=== PATIENT | female | born 1945 | race Caucasian/White ===

== ENCOUNTER → 2017-09-07 | Outpatient (CLI) | payer MEDICARE ==
[2017-09-07 14:16] LABS: HCT 31.2 % (34.0-46.0); HGB 10.4 gm/dL (11.4-16.0); MCH 31.9 pg (25.0-35.0); MCHC 33.5 g/dL (31.0-37.0); MCV 95.4 fL (80.0-100.0); Platelet Count 241 k/uL (150-450); RBC 3.27 m/uL (3.80-5.40); RDW 13.5 % (11.5-15.5); WBC 7.8 k/uL (3.8-10.6)
[2017-09-07 14:34] LABS: Albumin 3.6 g/dL (3.5-5.0); Calcium 9.5 mg/dL (8.4-10.2); Phosphorus 3.8 mg/dL (2.5-4.5); Potassium 4.3 mmol/L (3.5-5.1)
== END | disposition home or self-care (01) ==
LOC: LABWHC1 13:34
PROVIDERS: ATTEND Internal Medicine Nephrology
DX: N18.4 Chronic kidney disease, stage 4 (severe) (principal)
CPT/HCPCS: 36415; 80069; 85027

== ENCOUNTER 2017-09-11 17:34 | Emergency (ER) | payer MEDICARE ==
--- NOTE | 2017-09-11 19:09 | ED ---
Extremity Problem HPI - General Chief complaint: Extremity Problem,Nontraumatic Stated complaint: Hypertensive & swelling Time Seen by Provider: 09/11/17 18:34 Source: patient, RN notes reviewed Mode of arrival: ambulatory Limitations: no limitations - History of Present Illness Initial comments: This is a 72-year-old female who presents to the emergency department with chief complaint of hypertension and bilateral hand pain and swelling. Patient reports a history of osteoarthritis, gout and stage IV kidney disease. She states that she presented to [facility] prior to arrival to the emergency department and was noted to have a blood pressure of 220/110. It was recommended the patient present to the emergency department. Patient states that this is abnormally high for her. She takes amlodipine daily. She states that she took her medication early this morning at approximately 6 AM. Patient complains of bilateral hand achiness and stiffness that began approximately 10 days ago. She states that symptoms started on the thumb side of her right hand and progressed to her left hand. She states that the pain sometimes radiates up to her forearm. She states that she has also noticed swelling of her bilateral hands and wrists, more so on the left side. She states that swelling decreases throughout the day. Patient also noticed 3 mornings ago when she awoke both feet were swollen and she had difficulty initiating walking. She states that she has taken Tylenol and hydrocodone which does seem to help the pain. Denies fevers or chills, chest pain or shortness breath, abdominal pain, nausea or vomiting, diarrhea or constipation, dysuria or hematuria, numbness or tingling. Denies any injury or trauma. - Related Data Home Medications Medication Instructions Recorded Confirmed Allopurinol [Allopurinol] 100 mg PO DAILY 06/02/15 09/11/17 Glimepiride [Amaryl] 1 mg PO DAILY 06/02/15 09/11/17 HYDROcodone/APAP 5-325MG [[place] 1 tab PO Q6H PRN 06/02/15 09/11/17 5-325] Pioglitazone HCl [Pioglitazone HCl] 30 mg PO DAILY 06/02/15 09/11/17 Sertraline HCl [Sertraline HCl] 50 mg PO DAILY 06/02/15 09/11/17 amLODIPine BESYLATE [Amlodipine 5 mg PO DAILY 06/02/15 09/11/17 Besylate] ALPRAZolam [Xanax] 0.25 mg PO HS PRN 09/11/17 09/11/17 Aspirin [Adult Low Dose Aspirin EC] 81 mg PO DAILY 09/11/17 09/11/17 Calcitriol [Rocaltrol] 0.25 mcg PO Q48H 09/11/17 09/11/17 [place]-3 Fatty Acids/Fish Oil [Fish 1 cap PO DAILY 09/11/17 09/11/17 Oil 1,000 mg Softgel] Sodium Polystyrene Sulfon/Sorb 5 gm PO Q2D 09/11/17 09/11/17 [Kionex 15 gm/60 ml Suspension] Previous Rx's Medication Instructions Recorded Cephalexin [Keflex] 500 mg PO Q12HR #20 cap 09/11/17 Allergies Allergy/AdvReac Type Severity Reaction Status Date / Time ciprofloxacin [From Cipro] Allergy Vomiting Verified 09/11/17 20:00 ciprofloxacin HCl Allergy Vomiting Verified 09/11/17 20:00 [From Cipro] ibuprofen [From Motrin] Allergy Unknown Verified 09/11/17 20:11 metformin [From Glucophage] Allergy Unknown Verified 09/11/17 20:11 Penicillins Allergy Rash/Hives Verified 09/11/17 20:00 Review of Systems ROS Statement: Those systems with pertinent positive or pertinent negative responses have been documented in the HPI. ROS Other: All systems not noted in ROS Statement are negative. Past Medical History Past Medical History: Coronary Artery Disease (CAD), Diabetes Mellitus, Hypertension, Renal Disease Additional Past Medical History / Comment(s): arthritis, gout, stage 4 kidney disease History of Any Multi-Drug Resistant Organisms: None Reported Past Surgical History: Bladder Surgery, Coronary Bypass/CABG, Hysterectomy, Orthopedic Surgery Past Psychological History: Depression Smoking Status: Never smoker Past Alcohol Use History: Occasional Past Drug Use History: None Reported General Exam - General Exam Comments Initial Comments: General: Awake and alert, well-developed; in no apparent distress. HEENT: Head atraumatic, normocephalic. Pupils are equal, round and reactive to light. Extraocular movements intact. Oropharynx moist without erythema or exudate. Neck: Supple. Normal ROM. Cardiovascular: Regular rate and rhythm. No murmurs, rubs or gallops. Chest symmetrical. Respiratory: Lungs clear to auscultation bilaterally. No wheezes, rales or rhonchi. Normal respiratory effort with no use of accessory muscles. Abdomen: Soft, non-tender, non-distended. No rigidity, rebound or guarding. Normal bowel sounds in all 4 quadrants. Musculoskeletal: Normal range of motion of bilateral upper and lower extremities. There is swelling noted to bilateral hands and left wrist, more so on the left side. No erythema, ecchymosis, warmth, or abrasions noted. Component Assembler Supervisor strength 4/5 bilaterally. Skin: [place], warm and dry without rashes or lesions. Neurological: Alert and oriented x3. CN II-XII grossly intact. Speech is fluent and answers are appropriate. No focal neuro deficits. Psychiatric: Normal mood and affect. No overt signs of depression or anxiety noted. Limitations: no limitations Course Vital Signs 09/11/17 09/11/17 18:22 20:40 Temperature 97.6 F 98.3 F Pulse Rate 75 82 Respiratory 18 19 Rate Blood Pressure 184/84 188/93 O2 Sat by Pulse 99 98 Oximetry Medical Decision Making - Medical Decision Making This is a 72-year-old female who presents to the emergency department with chief complaint of bilateral hand pain and swelling. Patient was sent over from [facility] when she was noted to have hypertension. Patient does have stage IV kidney disease, osteoarthritis and gout. CBC was unremarkable. CMP revealed a BUN of 49 and creatinine of 2.4. On review of past labs, this is baseline for patient. CRP was 18.3 and ESR was 55. UA did reveal evidence for infection. This case was discussed with attending physician, Dr. Ochoa who was in contact with [facility]. Patient does not meet any admission criteria. She will be discharged home with Keflex to treat a urinary tract infection. She does request pain medication for her hands. She states that she does have an opiate prescription from her primary care provider in [place], however does not have her prescription with her. Patient will be provided a starter pack for Tylenol#3. Recommended following up with her primary care provider as soon as possible to address her high blood pressure and swelling of the hands further. Patient is in agreement with plan and voices understanding. All questions were answered. - Lab Data Result diagrams: 09/11/17 19:05 09/11/17 19:05 Lab Results 09/11/17 09/11/17 09/11/17 Range/Units 18:50 19:05 19:05 WBC 9.1 (3.8-10.6) k/uL RBC 3.26 L (3.80-5.40) m/uL Hgb 10.5 L (11.4-16.0) gm/dL Hct 31.2 L (34.0-46.0) % MCV 95.5 (80.0-100.0) fL MCH 32.1 (25.0-35.0) pg MCHC 33.6 (31.0-37.0) g/dL RDW 13.6 (11.5-15.5) % Plt Count 243 (150-450) k/uL Neutrophils % 68 % Lymphocytes % 21 % Monocytes % 5 % Eosinophils % 2 % Basophils % 0 % Neutrophils # 6.2 (1.3-7.7) k/uL Lymphocytes # 1.9 (1.0-4.8) k/uL Monocytes # 0.5 (0-1.0) k/uL Eosinophils # 0.2 (0-0.7) k/uL Basophils # 0.0 (0-0.2) k/uL ESR 55 H (0-20) mm/hr Sodium 141 (137-145) mmol/L Potassium 4.7 (3.5-5.1) mmol/L Chloride 105 (98-107) mmol/L Carbon Dioxide 22 (22-30) mmol/L Anion Gap 14 mmol/L BUN 49 H (7-17) mg/dL Creatinine 2.40 H (0.52-1.04) mg/dL Est GFR (CKD-EPI)AfAm 22 (>60 ml/min/1.73 sqM) Est GFR (CKD-EPI)NonAf 19 (>60 ml/min/1.73 sqM) Glucose 90 (74-99) mg/dL Calcium 9.2 (8.4-10.2) mg/dL Total Bilirubin 0.4 (0.2-1.3) mg/dL AST 23 (14-36) U/L ALT 14 (9-52) U/L Alkaline Phosphatase 63 (38-126) U/L C-Reactive Protein 18.3 H (<10.0) mg/L Total Protein 6.4 (6.3-8.2) g/dL Albumin 3.6 (3.5-5.0) g/dL Urine Color Yellow Urine Appearance Cloudy H (Clear) Urine pH 6.5 (5.0-8.0) Ur Specific [place] 1.013 (1.001-1.035) Urine Protein 3+ H (Negative) Urine Glucose (UA) Trace H (Negative) Urine Ketones Negative (Negative) Urine Blood Small H (Negative) Urine Nitrite Negative (Negative) Urine Bilirubin Negative (Negative) Urine Urobilinogen <2.0 (<2.0) mg/dL Ur Leukocyte Esterase Moderate H (Negative) Urine RBC 3 (0-5) /hpf Urine WBC 33 H (0-5) /hpf Ur Squamous Epith Cells 2 (0-4) /hpf Urine Mucus Rare H (None) /hpf Disposition Clinical Impression: UTI (urinary tract infection), Bilateral hand pain Disposition: HOME SELF-CARE Condition: Good Instructions: Arthralgia (ED), Swollen Joint (ED), Urinary Tract Infection in Women (ED), Acetaminophen/Codeine (By mouth) Additional Instructions: Please take medications as prescribed. Please follow up with primary care provider within 1-2 days. Return to emergency department if symptoms should worsen or any concerns arise. Prescriptions: Cephalexin [Keflex] 500 mg PO Q12HR #20 cap Is patient prescribed a controlled substance at discharge?: Yes Referrals: Nonstaff,Physician [Primary Care Provider] - 1-2 days Time of Disposition: 21:07
[2017-09-11 19:10] LABS: Appearance,Urine Cloudy (Clear); Bilirubin,Urine Negative (Negative); Blood,Urine Small (Negative); Color,Urine Yellow; Glucose,Urine (UA) Trace (Negative); Ketones,Urine Negative (Negative); Leukocyte Esterase,Urine Moderate (Negative); Mucus,Urine Rare /hpf; Nitrite,Urine Negative (Negative); PH, Urine 6.5 (5.0-8.0); Protein,Urine 3+ (Negative); RBC,Urine 3 /hpf (0-5); Specific Gravity,Urine 1.013 (1.001-1.035); Squamous Epithelial Cell,Urine 2 /hpf (0-4); Urobilinogen,Urine <2.0 mg/dL (<2.0); WBC,Urine 33 /hpf (0-5)
[2017-09-11 19:21] LABS: Basophils % (A) 0 %; Eosinophils # (A) 0.2 k/uL (0-0.7); Eosinophils % (A) 2 %; HCT 31.2 % (34.0-46.0); HGB 10.5 gm/dL (11.4-16.0); Lymphocytes # (A) 1.9 k/uL (1.0-4.8); Lymphocytes % (A) 21 %; MCH 32.1 pg (25.0-35.0); MCHC 33.6 g/dL (31.0-37.0); MCV 95.5 fL (80.0-100.0); Mean Platelet Volume 7.1; Monocytes # (A) 0.5 k/uL (0-1.0); Monocytes % (A) 5 %; Neutrophils # (A) 6.2 k/uL (1.3-7.7); Neutrophils % (A) 68 %; Platelet Count 243 k/uL (150-450); RBC 3.26 m/uL (3.80-5.40); RDW 13.6 % (11.5-15.5); WBC 9.1 k/uL (3.8-10.6)
[2017-09-11 19:32] LABS: Albumin 3.6 g/dL (3.5-5.0); C Reactive Protein 18.3 mg/L (<10.0); Calcium 9.2 mg/dL (8.4-10.2); Potassium 4.7 mmol/L (3.5-5.1); Total Bilirubin 0.4 mg/dL (0.2-1.3); Total Protein 6.4 g/dL (6.3-8.2)
[2017-09-11 20:08] LABS: Erythrocyte Sedimentation Rate 55 mm/hr (0-20)
[2017-09-11] MEDS ORDERED: cefTRIAXone IN SWFI 1,000 MG/10 ML SYRINGE IVP STA (20:37)
[2017-09-11 20:41] VITALS: BP 188/93; PULSE 82; RESP 19; TEMP 98.3
[2017-09-11] MEDS ORDERED: ACET/COD 300 MG/30 MG STARTER PACK 6 TAB BTL PO STA (21:07)
== END 2017-09-11 21:32 | disposition home or self-care (01) ==
LOC: EC 17:34
DX: N39.0 Urinary tract infection, site not specified (principal); M79.641 Pain in right hand; M79.642 Pain in left hand; M79.89 Other specified soft tissue disorders; I12.9 Hypertensive chronic kidney disease with stage 1 through stage 4 chronic kidney disease, or unspecified chronic kidney disease; E11.22 Type 2 diabetes mellitus with diabetic chronic kidney disease; N18.4 Chronic kidney disease, stage 4 (severe); M19.90 Unspecified osteoarthritis, unspecified site; M10.9 Gout, unspecified; F32.9 Major depressive disorder, single episode, unspecified; I25.10 Atherosclerotic heart disease of native coronary artery without angina pectoris; Z79.82 Long term (current) use of aspirin; Z79.84 Long term (current) use of oral hypoglycemic drugs; Z79.899 Other long term (current) drug therapy; Z88.0 Allergy status to penicillin; Z88.8 Allergy status to other drugs, medicaments and biological substances; Z88.1 Allergy status to other antibiotic agents; Z88.6 Allergy status to analgesic agent; Z98.890 Other specified postprocedural states; Z90.710 Acquired absence of both cervix and uterus
CPT/HCPCS: 36415; 80053; 85652; 85025; 86140; 81001; 87086; 99283; 96374; J0696

== ENCOUNTER → 2019-02-06 | Outpatient (CLI) | payer MEDICARE ==
[2019-02-06 12:00] LABS: HCT 29.8 % (34.0-46.0); HGB 9.7 gm/dL (11.4-16.0); MCH 32.6 pg (25.0-35.0); MCHC 32.7 g/dL (31.0-37.0); MCV 99.8 fL (80.0-100.0); Platelet Count 187 k/uL (150-450); RBC 2.98 m/uL (3.80-5.40); RDW 13.9 % (11.5-15.5); WBC 8.7 k/uL (3.8-10.6)
[2019-02-06 16:53] LABS: African American GFR (CKD) 11.9 (60.0-200.0); Albumin 4.1 g/dL (3.80-4.90); Anion Gap 10.6 mmol/L (4.00-12.00); BUN/Creat Ratio 13.25 Ratio (12.00-20.00); Calcium 8.8 mg/dL (8.7-10.3); Carbon Dioxide 23.4 mmol/L (21.6-31.8); Magnesium 1.7 mg/dL (1.5-2.4); Phosphorus 4.6 mg/dL (2.4-5.1); Potassium 4.4 mmol/L (3.5-5.5)
== END | disposition home or self-care (01) ==
LOC: LABWHC1 11:25
PROVIDERS: ATTEND Internal Medicine Nephrology
DX: N18.5 Chronic kidney disease, stage 5 (principal); D63.1 Anemia in chronic kidney disease
CPT/HCPCS: 36415; 80069; 83735; 85027

== ENCOUNTER → 2019-11-12 | Outpatient (CLI) | payer MEDICARE ==
[2019-11-12 16:46] LABS: African American GFR (CKD) 6.9 (60.0-200.0); Anion Gap 11.9 mmol/L (4.00-12.00); Calcium 8.8 mg/dL (8.7-10.3); Carbon Dioxide 21.1 mmol/L (21.6-31.8); Non-African American GFR(CKD) 5.9 (60.0-200.0); Potassium 5.6 mmol/L (3.5-5.5)
== END | disposition home or self-care (01) ==
LOC: LABWHC1 08:26
PROVIDERS: ATTEND Internal Medicine Nephrology
DX: N18.6 End stage renal disease (principal)
CPT/HCPCS: 36415; 80048

== ENCOUNTER → 2020-05-14 | Outpatient (CLI) | payer MEDICARE | END | disposition home or self-care (01) | LOC: LABWHC1 13:46 | PROVIDERS: ATTEND Internal Medicine Nephrology | DX: E78.5 Hyperlipidemia, unspecified (principal) | CPT/HCPCS: 36415; 84132 ==

== ENCOUNTER 2023-07-22 09:24 | Emergency (ER) | payer MEDICARE ==
[2023-07-22 09:35] VITALS: RESP 18; TEMP 97.6
--- NOTE | 2023-07-22 10:53 | XR ---
EXAMINATION TYPE: XR KUB DATE OF EXAM: 07/22/2023 10:16 AM CLINICAL INDICATION:Female, 78 years old with history of fecal impaction; [facility] COMPARISON: None. TECHNIQUE: One radiographic view of the abdomen was obtained. FINDINGS: Moderate amount of stool throughout the colon. The bowel gas pattern is nonspecific without dilated loops of small or large bowel. There is no evidence for organomegaly or pneumoperitoneum. T he osseous structures are intact. No abnormal calcifications are present. Fecal material and gas are demonstrated throughout the colon and rectum. IMPRESSION: Nonspecific bowel gas pattern without radiographic evidence for acute process.
--- NOTE | 2023-07-22 11:35 | ED ---
Abdominal Pain HPI - General Chief Complaint: Abdominal Pain Stated Complaint: [place] Pain Time Seen by Provider: 07/22/23 09:32 Source: patient Mode of arrival: ambulatory Limitations: no limitations - History of Present Illness Initial Comments: 78-year-old female presents emergency department with constipation. States that she has not had a bowel movement in a couple of days. She normally goes daily. Patient is on dialysis and believes that it is the dialysis that made her constipated. She missed her dialysis this morning and is scheduled to follow-up on Monday. States that she will occasionally miss a session and this is okay with her care team as she does not quickly become fluid overloaded or uremic. Patient states that she feels like it is in her rectal vault. She has a lot of pressure down here. Has some generalized abdominal discomfort. She took a suppository this morning and drink some prune juice. Had a small bowel mo vement. She denies any black or bloody stools. No changes with her urination. No back pain. No other alleviating, precipitating or modifying factors - Related Data Home Medications Medication Instructions Recorded Confirmed Glimepiride [Amaryl] 1 mg PO DAILY 06/02/15 09/11/17 HYDROcodone/APAP 5-325MG [[place] 1 tab PO Q6H PRN 06/02/15 09/11/17 5-325] Pioglitazone HCl 30 mg PO DAILY 06/02/15 09/11/17 Sertraline HCl 50 mg PO DAILY 06/02/15 09/11/17 allopurinoL [Allopurinol] 100 mg PO DAILY 06/02/15 09/11/17 amLODIPine BESYLATE [Amlodipine 5 mg PO DAILY 06/02/15 09/11/17 Besylate] ALPRAZolam [Xanax] 0.25 mg PO HS PRN 09/11/17 09/11/17 Aspirin [Adult Low Dose Aspirin EC] 81 mg PO DAILY 09/11/17 09/11/17 [place]-3 Fatty Acids/Fish Oil [Fish 1 cap PO DAILY 09/11/17 09/11/17 Oil 1,000 mg Softgel] Sodium Polystyrene Sulfon/Sorb 5 gm PO Q2D 09/11/17 09/11/17 [Kionex 15 gm/60 ml Suspension] calcitrioL [Rocaltrol] 0.25 mcg PO Q48H 09/11/17 09/11/17 Previous Rx's Medication Instructions Recorded Cephalexin [Keflex] 500 mg PO Q12HR #20 cap 09/11/17 Lactulose 20 gm PO DAILY PRN #240 ml 07/22/23 Allergies Allergy/AdvReac Type Severity Reaction Status Date / Time ciprofloxacin [From Cipro] Allergy Vomiting Verified 07/22/23 09:31 ciprofloxacin HCl Allergy Vomiting Verified 07/22/23 09:31 [From Cipro] ibuprofen [From Motrin] Allergy Unknown Verified 07/22/23 09:31 metformin [From Glucophage] Allergy Unknown Verified 07/22/23 09:31 Penicillins Allergy Rash/Hives Verified 07/22/23 09:31 Review of Systems ROS Statement: Those systems with pertinent positive or pertinent negative responses have been documented in the HPI. ROS Other: All systems not noted in ROS Statement are negative. Past Medical History Past Medical History: Coronary Artery Disease (CAD), Diabetes Mellitus, Hypertension, Renal Disease Additional Past Medical History / Comment(s): arthritis, gout, stage 4 kidney disease, dialysis History of Any Multi-Drug Resistant Organisms: None Reported Past Surgical History: Bladder Surgery, Coronary Bypass/CABG, Hysterectomy, Orthopedic Surgery Past Psychological History: Depression Smoking Status: Never smoker Past Alcohol Use History: Occasional Past Drug Use History: None Reported General Exam Limitations: no limitations General appearance: alert, in no apparent distress Head exam: Present: atraumatic, normocephalic, normal inspection Eye exam: Present: normal appearance, PERRL, EOMI. Absent: scleral icterus, conjunctival injection, periorbital swelling ENT exam: Present: normal exam, mucous membranes moist Neck exam: Present: normal inspection. Absent: tenderness, meningismus, lymphadenopathy Respiratory exam: Present: normal lung sounds bilaterally. Absent: respiratory distress, wheezes, rales, rhonchi, stridor Cardiovascular Exam: Present: regular rate, normal rhythm, normal heart sounds. Absent: systolic murmur, diastolic murmur, rubs, gallop, clicks GI/Abdominal exam: Present: soft, normal bowel sounds. Absent: distended, tenderness, guarding, rebound, rigid Rectal exam: Present: normal rectal tone. Absent: fecal impaction Extremities exam: Present: normal inspection, full ROM, normal capillary refill. Absent: tenderness, pedal edema, joint swelling, calf tenderness Back exam: Present: normal inspection Neurological exam: Present: alert, oriented X3, CN II-XII intact Psychiatric exam: Present: normal affect, normal mood Skin exam: Present: warm, dry, intact, normal color. Absent: rash Course Vital Signs 07/22/23 07/22/23 09:26 11:46 Temperature 97.6 F Pulse Rate 66 73 Respiratory 18 18 Rate Blood Pressure 194/70 177/83 O2 Sat by Pulse 99 97 Oximetry Medical Decision Making - Medical Decision Making Was pt. sent in by a medical professional or institution (, SUMEET, ROTARY ADJUSTER, urgent care, hospital, or group home...) When possible be specific @ -No Did you speak to anyone other than the patient for history (EMS, parent, family, police, friend...)? What history was obtained from this source @ -No Did you review nursing and triage notes (agree or disagree)? Why? @ -I reviewed and agree with nursing and triage notes Were old charts reviewed (outside hosp., previous admission, EMS record, old EKG, old radiological studies, urgent care reports/EKG's, group home records)? Report findings @ -No old charts were reviewed Differential Diagnosis (chest pain, altered mental status, abdominal pain women, abdominal pain men, vaginal bleeding, weakness, fever, dyspnea, syncope, headache, dizziness, GI bleed, back pain, seizure, CVA, palpatations, mental health, musculoskeletal)? @ -Constipation, rectal impaction EKG interpreted by me (3pts min.). @ -None done X-rays interpreted by me (1pt min.). @ -Yes and demonstrates some stool burden CT interpreted by me (1pt min.). @ -None done U/S interpreted by me (1pt. min.). @ -None done What testing was considered but not performed or refused? (CT, X-rays, U/S, labs)? Why? @ -None What meds were considered but not given or refused? Why? @ -None Did you discuss the management of the patient with other professionals (professionals i.e. SUMEET Silva, ROTARY ADJUSTER, lab, RT, psych nurse, social service manager, meat passer, teacher, earth science technical officer, hospice case manager)? Give summary @ -No Was smoking cessation discussed for >3mins.? @ -No Was critical care preformed (if so, how long)? @ -No Were there social determinants of health that impacted care today? How? (Homelessness, low income, unemployed, alcoholism, drug addiction, transpor tation, low edu. Level, literacy, decrease access to med. care, custodial, rehab)? @ -No Was there de-escalation of care discussed even if they declined (Discuss DNR or withdrawal of care, Hospice)? DNR status @ -No What co-morbidities impacted this encounter? (DM, HTN, Smoking, COPD, CAD, Cancer, CVA, ARF, Chemo, Hep., AIDS, mental health diagnosis, sleep apnea, morbid obesity)? @ -End-stage renal disease on hemodialysis Was patient admitted / discharged? Hospital course, mention meds given and route, prescriptions, significant lab abnormalities, going to OR and other pertinent info. @ -Discharged. Upon arrival patient placed on 31. A thorough history and physical exam was performed. KUB is performed. Enema is administered. I did perform rectal disimpaction however patient does not have much stool that I am able to reach. Patient will be discharged home and instructed to take MiraLAX daily. May additionally take lactulose which I prescribed to help her have bowel movements. Follow-up with her doctor return for any new or worsening symptoms Undiagnosed new problem with uncertain prognosis? @ -No Drug Therapy requiring intensive monitoring for toxicity (Heparin, Nitro, Insul in, Cardizem)? @ -No Were any procedures done? @ -Rectal disimpaction Diagnosis/symptom? @ -Acute constipation Acute, or Chronic, or Acute on Chronic? @ -Acute Uncomplicated (without systemic symptoms) or Complicated (systemic symptoms)? @ -Complicated Side effects of treatment? @ -No Exacerbation, Progression, or Severe Exacerbation? @ -No Poses a threat to life or bodily function? How? (Chest pain, [place], [place], pneumonia, PE, COPD, DKA, ARF, appy, cholecystitis, CVA, Diverticulitis, Homicidal, Suicidal, threat to staff... and all critical care pts) @ -No Disposition Clinical Impression: Constipation Disposition: HOME SELF-CARE Condition: Stable Instructions (If sedation given, give patient instructions): Constipation (ED) Additional Instructions: You can use your MiraLAX daily. Take the lactulose on days that you are significantly constipated. Follow-up with your doctor and return for any new or worsening symptoms Prescriptions: Lactulose 20 gm PO DAILY PRN #240 ml PRN Reason: Constipation Is patient prescribed a controlled substance at d/c from ED?: No Referrals: Nonstaff,Physician [Primary Care Provider] - 1-2 days Time of Disposition: 11:34
[2023-07-22 12:04] VITALS: BP 177/83; PULSE 73
== END 2023-07-22 11:49 | disposition home or self-care (01) ==
LOC: EC 09:24
DX: K59.00 Constipation, unspecified (principal); E11.9 Type 2 diabetes mellitus without complications; I10 Essential (primary) hypertension; I12.9 Hypertensive chronic kidney disease with stage 1 through stage 4 chronic kidney disease, or unspecified chronic kidney disease; E11.22 Type 2 diabetes mellitus with diabetic chronic kidney disease; I25.10 Atherosclerotic heart disease of native coronary artery without angina pectoris; N18.4 Chronic kidney disease, stage 4 (severe); F32.A Depression, unspecified; Z79.84 Long term (current) use of oral hypoglycemic drugs; Z79.899 Other long term (current) drug therapy; Z88.6 Allergy status to analgesic agent; Z88.0 Allergy status to penicillin; Z88.8 Allergy status to other drugs, medicaments and biological substances; Z88.1 Allergy status to other antibiotic agents
CPT/HCPCS: 74018; 99284

== ENCOUNTER 2024-02-28 09:25 | Observation (INO) | payer MEDICARE ==
--- NOTE | 2024-02-28 10:13 | ED ---
General Adult HPI - General Chief complaint: Recheck/Abnormal Lab/Rx Stated complaint: high blood pressure Time Seen by Provider: 02/28/24 09:40 Source: patient, RN notes reviewed, old records reviewed Mode of arrival: ambulatory Limitations: no limitations - History of Present Illness Initial comments: This is an 79-year-old female who presents to the emergency department because she went to dialysis this morning and her blood pressure was too high to be dialyzed so they sent to the emergency department. Patient also states she drove to [facility] mistakenly to get dialyzed and she was supposed to go to [facility] and she went down there but does not remember now ever going to [facility]. According to the staff at the dialysis center she appeared a little bit confused and the daughter who is with her at this time states she was seemed a little confused as well when she first saw her and now she is back to her baseline. Patient still does not remember going to the wrong dialysis center. Patient denies a headache patient denies numbness weakness. Patient Nuys chest pain difficulty breathing or shortness of breath. Patient has any fever chills or cough or patient has abdominal pain patient Nuys nausea vomiting or diarrhea. - Related Data Home Medications Medication Instructions Recorded Confirmed Glimepiride [Amaryl] 1 mg PO DAILY 06/02/15 09/11/17 HYDROcodone/APAP 5-325MG [[place] 1 tab PO Q6H PRN 06/02/15 09/11/17 5-325] Pioglitazone HCl 30 mg PO DAILY 06/02/15 09/11/17 Sertraline HCl 50 mg PO DAILY 06/02/15 09/11/17 allopurinoL [Allopurinol] 100 mg PO DAILY 06/02/15 09/11/17 amLODIPine BESYLATE [Amlodipine 5 mg PO DAILY 06/02/15 09/11/17 Besylate] ALPRAZolam [Xanax] 0.25 mg PO HS PRN 09/11/17 09/11/17 Aspirin [Adult Low Dose Aspirin EC] 81 mg PO DAILY 09/11/17 09/11/17 [place]-3 Fatty Acids/Fish Oil [Fish 1 cap PO DAILY 09/11/17 09/11/17 Oil 1,000 mg Softgel] Sodium Polystyrene Sulfon/Sorb 5 gm PO Q2D 09/11/17 09/11/17 [Kionex 15 gm/60 ml Suspension] calcitrioL [Rocaltrol] 0.25 mcg PO Q48H 09/11/17 09/11/17 Previous Rx's Medication Instructions Recorded Cephalexin [Keflex] 500 mg PO Q12HR #20 cap 09/11/17 Lactulose 20 gm PO DAILY PRN #240 ml 07/22/23 Allergies Allergy/AdvReac Type Severity Reaction Status Date / Time ciprofloxacin [From Cipro] Allergy Vomiting Verified 02/28/24 12:02 ciprofloxacin HCl Allergy Vomiting Verified 02/28/24 12:02 [From Cipro] ibuprofen [From Motrin] Allergy Unknown Verified 02/28/24 12:02 metformin [From Glucophage] Allergy Unknown Verified 02/28/24 12:02 Penicillins Allergy Rash/Hives Verified 02/28/24 12:02 Review of Systems ROS Statement: Those systems with pertinent positive or pertinent negative responses have been documented in the HPI. ROS Other: All systems not noted in ROS Statement are negative. Past Medical History Past Medical History: Coronary Artery Disease (CAD), Diabetes Mellitus, Hypertension, Renal Disease Additional Past Medical History / Comment(s): arthritis, gout, stage 4 kidney disease, dialysis History of Any Multi-Drug Resistant Organisms: None Reported Past Surgical History: Bladder Surgery, Coronary Bypass/CABG, Hysterectomy, Orthopedic Surgery Past Psychological History: Depression Smoking Status: Never smoker Past Alcohol Use History: Occasional Past Drug Use History: None Reported General Exam - General Exam Comments Initial Comments: GENERAL: Patient is well-developed and well-nourished. Patient is nontoxic and well- hydrated and is in no acute distress. ENT: Neck is soft and supple. No significant lymphadenopathy is noted. Oropharynx is clear. Moist mucous membranes. Neck has full range of motion without eliciting any pain. EYES: The sclera were anicteric and conjunctiva were pink and moist. Extraocular movements were intact and pupils were equal round and reactive to light. Eyelids were unremarkable. PULMONARY: Unlabored respirations. Good breath sounds bilaterally. No audible rales rhonchi or wheezing was noted. CARDIOVASCULAR: There is a regular rate and rhythm without any murmurs gallops or rubs. ABDOMEN: Soft and nontender with normal bowel sounds. SKIN: Skin is clear with no lesions or rashes and otherwise unremarkable. NEUROLOGIC: Patient is alert and oriented x3. Cranial nerves II through XII are grossly intact. Motor and sensory are also intact. Normal speech, volume and content. Symmetrical smile. MUSCULOSKELETAL: Normal extremities with adequate strength and full range of motion. No lower extremity swelling or edema. No calf tenderness. LYMPHATICS: No significant lymphadenopathy is noted PSYCHIATRIC: Normal psychiatric evaluation. Limitations: no limitations Course Vital Signs 02/28/24 02/28/24 02/28/24 09:26 11:22 11:40 Temperature 97.4 F L Pulse Rate 65 61 62 Respiratory 20 18 Rate Blood Pressure 194/83 183/75 187/67 O2 Sat by Pulse 100 100 100 Oximetry Medical Decision Making - Medical Decision Making EKG is interpreted by myself but EKG shows a sinus rhythm at 68 bpm GA interval is 187 QRS 106 QT interval is 418 QTc is 436. Patient EKG shows no ST segment ovation or depression. Was pt. sent in by a medical professional or institution (, SUMEET, SKULL GRINDER, urgent care, hospital, or prison...) When possible be specific @ -Patient was sent in by the dialysis center Did you speak to anyone other than the patient for history (EMS, parent, family, police, friend...)? What history was obtained from this source @ -No Did you review nursing and triage notes (agree or disagree)? Why? @ -I reviewed and agree with nursing and triage notes Were old charts reviewed (outside hosp., previous admission, EMS record, old EKG, old radiological studies, urgent care reports/EKG's, prison records)? Report findings @ -No old charts were reviewed Differential Diagnosis? @ -Differential Altered Mental Status: Hypoglycemia, DKA, hypercapnia, ETOH, overdose, CO poisoning, trauma, myxedema coma, HTN encephalopathy, infection, encephalitis, psychosis, intercranial hemorrhage, hepatic encephalopathy, meningitis, CVA, this is not meant to be an all-inclusive list EKG interpreted by me (3pts min.). @ -As above X-rays interpreted by me (1pt min.). @ -Chest x-ray shows no acute abnormality CT interpreted by me (1pt min.). @ -CT of the brain shows no acute normality U/S interpreted by me (1pt. min.). @ -None done What testing was considered but not performed or refused? (CT, X-rays, U/S, labs)? Why? @ -None What meds were considered but not given or refused? Why? @ -None Did you discuss the management of the patient with other professionals (professionals i.e. , PA, SKULL GRINDER, lab, RT, psych nurse, social economist, barrel cooper, teacher, licensed loan officer, manager rn case)? Give summary @ -I spoke with Dr. Alvarado he agreed to admit the patient admit the patient I wrote admitting orders Was smoking cessation discussed for >3mins.? @ -No Was critical care preformed (if so, how long)? @ -No Were there social determinants of health that impacted care today? How? (Homelessness, low income, unemployed, alcoholism, drug addiction, transportation, low edu. Level, literacy, decrease access to med. care, fci, rehab)? @ -No Was there de-escalation of care discussed even if they declined (Discuss DNR or withdrawal of care, Hospice)? DNR status @ -No What co-morbidities impacted this encounter? (DM, HTN, Smoking, COPD, CAD, Cancer, CVA, ARF, Chemo, Hep., AIDS, mental health diagnosis, sleep apnea, morbid obesity)? @ -None Was patient admitted / discharged? Hospital course, mention meds given and route, prescriptions, significant lab abnormalities, going to OR and other pertinent info. @ -Patient's sodium was low potassium was mildly elevated I spoke with Dr. Alvarado we will be admitting the patient I will consult nephrology for dialysis Undiagnosed new problem with uncertain prognosis? @ -No Drug Therapy requiring intensive monitoring for toxicity (Heparin, Nitro, Insulin, Cardizem)? @ -No Were any procedures done? @ -No Diagnosis/symptom? @ -Hyponatremia Acute, or Chronic, or Acute on Chronic? @ -Acute Uncomplicated (without systemic symptoms) or Complicated (systemic symptoms)? @ -Complicated Side effects of treatment? @ -No Exacerbation, Progression, or Severe Exacerbation? @ -No Poses a threat to life or bodily function? How? (Chest pain, [place], [place], pneumonia, PE, COPD, DKA, ARF, appy, cholecystitis, CVA, Diverticulitis, Homicidal, Suicidal, threat to staff... and all critical care pts) @ -Yes this could be lead to further electrolyte abnormalities and dysrhythmias and Diagnosis/symptom? @ -Hyperkalemia Acute, or Chronic, or Acute on Chronic? @ -Default Uncomplicated (without systemic symptoms) or Complicated (systemic symptoms)? @ -Complicated Side effects of treatment? @ -None Exacerbation, Progression, or Severe Exacerbation] @ -No Poses a threat to life or bodily function? @ -Yes this could lead to an arrhythmia and possible Diagnosis/symptom? @ -Altered mental status Acute, or Chronic, or Acute on Chronic? @ -Acute Uncomplicated (without systemic symptoms) or Complicated (systemic symptoms)? @ -Complicated Side effects of treatment? @ -None Exacerbation, Progression, or Severe Exacerbation] @ -No Poses a threat to life or bodily function? @ -No - Lab Data Result diagrams: 02/28/24 10:46 02/28/24 10:46 Lab Results 02/28/24 02/28/24 02/28/24 Range/Units 10:46 10:46 10:46 WBC 10.7 H (3.8-10.6) k/uL RBC 3.61 L (3.80-5.40) m/uL Hgb 12.1 (11.4-16.0) gm/dL Hct 36.9 (34.0-46.0) % MCV 102.4 H (80.0-100.0) fL MCH 33.7 (25.0-35.0) pg MCHC 32.9 (31.0-37.0) g/dL RDW 15.3 (11.5-15.5) % Plt Count 267 (150-450) k/uL MPV 7.2 Neutrophils % 78 % Lymphocytes % 14 % Monocytes % 4 % Eosinophils % 1 % Basophils % 1 % Neutrophils # 8.4 H (1.3-7.7) k/uL Lymphocytes # 1.5 (1.0-4.8) k/uL Monocytes # 0.5 (0-1.0) k/uL Eosinophils # 0.1 (0-0.7) k/uL Basophils # 0.1 (0-0.2) k/uL Macrocytosis Slight PT 10.2 (10.0-12.5) sec INR 0.9 (<1.2) APTT 22.8 (22.0-30.0) sec Sodium 123 L (137-145) mmol/L Potassium 6.0 H (3.5-5.1) mmol/L Chloride 87 L (98-107) mmol/L Carbon Dioxide 21 L (22-30) mmol/L Anion Gap 15 mmol/L BUN 43 H (7-17) mg/dL Creatinine 8.25 H* (0.52-1.04) mg/dL Est GFR (CKD-EPI)AfAm 5 (>60 ml/min/1.73 sqM) Est GFR (CKD-EPI)NonAf 4 (>60 ml/min/1.73 sqM) Glucose 137 H (74-99) mg/dL Calcium 9.7 (8.4-10.2) mg/dL Total Bilirubin 0.9 (0.2-1.3) mg/dL AST 41 H (14-36) U/L ALT 26 (4-34) U/L Alkaline Phosphatase 120 (38-126) U/L Troponin I (0.000-0.034) ng/mL Total Protein 7.8 (6.3-8.2) g/dL Albumin 4.8 (3.5-5.0) g/dL 02/28/24 Range/Units 10:46 WBC (3.8-10.6) k/uL RBC (3.80-5.40) m/uL Hgb (11.4-16.0) gm/dL Hct (34.0-46.0) % MCV (80.0-100.0) fL MCH (25.0-35.0) pg MCHC (31.0-37.0) g/dL RDW (11.5-15.5) % Plt Count (150-450) k/uL MPV Neutrophils % % Lymphocytes % % Monocytes % % Eosinophils % % Basophils % % Neutrophils # (1.3-7.7) k/uL Lymphocytes # (1.0-4.8) k/uL Monocytes # (0-1.0) k/uL Eosinophils # (0-0.7) k/uL Basophils # (0-0.2) k/uL Macrocytosis PT (10.0-12.5) sec INR (<1.2) APTT (22.0-30.0) sec Sodium (137-145) mmol/L Potassium (3.5-5.1) mmol/L Chloride (98-107) mmol/L Carbon Dioxide (22-30) mmol/L Anion Gap mmol/L BUN (7-17) mg/dL Creatinine (0.52-1.04) mg/dL Est GFR (CKD-EPI)AfAm (>60 ml/min/1.73 sqM) Est GFR (CKD-EPI)NonAf (>60 ml/min/1.73 sqM) Glucose (74-99) mg/dL Calcium (8.4-10.2) mg/dL Total Bilirubin (0.2-1.3) mg/dL AST (14-36) U/L ALT (4-34) U/L Alkaline Phosphatase (38-126) U/L Troponin I 0.024 (0.000-0.034) ng/mL Total Protein (6.3-8.2) g/dL Albumin (3.5-5.0) g/dL Disposition Clinical Impression: Altered mental status, Hyponatremia, Hyperkalemia Disposition: ADMITTED IP TO THIS [facility] Referrals: Nonstaff,Physician [Primary Care Provider] - 1-2 days Time of Disposition: 12:22
--- NOTE | 2024-02-28 10:49 | CT ---
EXAMINATION TYPE: CT brain wo con CT DLP: 1080.8 mGycm, Automated exposure control for dose reduction was used. DATE OF EXAM: 02/28/2024 10:42 AM COMPARISON: None. CLINICAL INDICATION:Female, 79 years old with history of Altered mental status, DIZZY TECHNIQUE: Brain: Multiple axial CT images of the brain were obtained without IV contrast. . Coronal and sagitta l reformats reviewed. FINDINGS: Brain: Extra-axial spaces: No abnormal extra-axial fluid collections. Ventricular system: Within normal limits Cerebral parenchyma: Cerebral atrophy. No acute intraparenchymal hemorrhage or mass effect. Few punct ate calcifications identified within the cerebral parenchyma. The lentz-white junction is well differe ntiated. Scattered hypoattenuating areas are seen within the periventricular white matter. Cerebellum: Unremarkable. Mass effect: No evidence of midline shift. Intracranial vasculature: Atherosclerotic calcifications of the intracranial vessels. Soft tissues: Normal. Calvarium/osseous structures: No depressed skull fracture. Paranasal sinuses and mastoid air cells: Clear Visualized orbits: Bilateral aphakia IMPRESSION: 1. No acute intracranial process. 2. Nonspecific white matter changes, likely secondary to chronic small vessel ischemic disease. [facility], , 02/28/2024 10:47 AM
--- NOTE | 2024-02-28 10:50 | XR ---
EXAMINATION TYPE: XR chest 2V DATE OF EXAM: 02/28/2024 10:40 AM COMPARISON: Chest radiographs from 07/08/2010 TECHNIQUE: XR chest 2V Frontal and lateral views of the chest. CLINICAL INDICATION:Female, 79 years old with history of altered mental status; FINDINGS: Lungs/Pleura: There is no evidence of pleural effusion, focal consolidation, or pneumothorax. Pulmonary vascularity: Unremarkable. Heart/mediastinum: Cardiomediastinal silhouette is enlarged and stable. Atherosclerotic calcificatio ns are seen in the aorta. Musculoskeletal: No acute osseous pathology. Midline sternotomy wires are noted and stable. IMPRESSION: No acute cardiopulmonary disease/process. [facility], , 02/28/2024 10:48 AM
[2024-02-28 11:05] LABS: Basophils # (A) 0.1 k/uL (0-0.2); Basophils % (A) 1 %; Eosinophils # (A) 0.1 k/uL (0-0.7); Eosinophils % (A) 1 %; HCT 36.9 % (34.0-46.0); HGB 12.1 gm/dL (11.4-16.0); Lymphocytes # (A) 1.5 k/uL (1.0-4.8); Lymphocytes % (A) 14 %; MCH 33.7 pg (25.0-35.0); MCHC 32.9 g/dL (31.0-37.0); MCV 102.4 fL (80.0-100.0); Macrocytosis Slight; Mean Platelet Volume 7.2; Monocytes # (A) 0.5 k/uL (0-1.0); Monocytes % (A) 4 %; Neutrophils # (A) 8.4 k/uL (1.3-7.7); Neutrophils % (A) 78 %; Platelet Count 267 k/uL (150-450); RBC 3.61 m/uL (3.80-5.40); RDW 15.3 % (11.5-15.5); WBC 10.7 k/uL (3.8-10.6)
[2024-02-28 11:09] LABS: INR 0.9 (<1.2); Partial Thromboplastin Time 22.8 sec (22.0-30.0); Prothrombin Time 10.2 sec (10.0-12.5)
[2024-02-28 11:14] LABS: ALT 26 U/L (4-34); African American GFR (CKD) 5 (>60 ml/min/1.73 sqM); Anion Gap 15 mmol/L; Blood Urea Nitrogen 43 mg/dL (7-17); Calcium 9.7 mg/dL (8.4-10.2); Carbon Dioxide 21 mmol/L (22-30); Chloride 87 mmol/L (98-107); Glucose 137 mg/dL (74-99); Non-African American GFR(CKD) 4 (>60 ml/min/1.73 sqM); Sodium 123 mmol/L (137-145); Total Bilirubin 0.9 mg/dL (0.2-1.3)
[2024-02-28 11:17] LABS: Albumin 4.8 g/dL (3.5-5.0); Total Protein 7.8 g/dL (6.3-8.2)
[2024-02-28 11:18] LABS: AST 41 U/L (14-36); Alkaline Phosphatase 120 U/L (38-126)
[2024-02-28] MEDS: hydrALAZINE HCL 20 MG/ML 1 ML VIAL IVP STA (11:42)
[2024-02-28] MEDS: ONDANSETRON 4 MG/2 ML VIAL IVP STA (12:55)
[2024-02-28 14:16] VITALS: RESP 17
[2024-02-28] MEDS ORDERED: ALPRAZolam 0.25 MG TAB PO PRN (15:41)
[2024-02-28] MEDS ORDERED: DEXTROSE 50% SYRINGE 50 ML IVP PRN ×2 (15:43)
--- NOTE | 2024-02-28 15:49 | P.HPIM ---
History of Present Illness H&P Date: 02/28/24 Chief Complaint: Acute encephalopathy and hypertension Patient is a 79-year-old female with a past medical history of diabetes mellitus, hypertension, gout, ESRD who was sent from dialysis due to altered mental status and high blood pressure. Patient states that she normally goes to 2 different dialysis centers in [facility] and [facility]. She mistakenly went to the [facility] dialysis center when she was supposed to go to the one in [facility]. Patient then went to the [facility] dialysis center where she was confused. Daughter was called to pick her up and take her to the emergency room. Daughter currently at bedside. Daughter states that patient's mental status is back to baseline. Patient states that she does not remember driving from the [facility] dialysis center to the [facility] dialysis center. Patient otherwise has no complaints. In the ED patient's sodium was 123 and potassium 6.0 and creatinine 8.25 and BUN 43. Patient's blood pressure initially elevated at systolically 183. Patient was given one-time dose of IV hydralazine 10 mg. Blood pressure has now improved to systolically 135. ROS: 10 ROS reviewed and are negative except as noted in HPI Physical exam General: [Alert and oriented, well nourished, no acute distress]. Eye: [PERRL, EOMI, normal conjunctiva]. HENT: [Normocephalic, clear tympanic membranes, normal hearing, moist oral mucosa, no scleral icterus, no sinus tenderness]. Neck: [Supple, non-tender, no carotid bruits, no JVD, no lymphadenopathy]. Lungs: [Clear to auscultation and percussion, non-labored respiration]. Heart: [Normal rate, regular rhythm, no murmur, gallop or edema]. Abdomen: [Soft, non-tender, non-distended, normal bowel sounds, no masses]. Musculoskeletal: [Normal range of motion and strength, no tenderness or swelling]. Skin: [Skin is warm, dry and pink, no rashes or lesions]. Neurologic: [Awake, alert, and oriented X3, CN II-XII intact]. Psychiatric: [Cooperative, appropriate mood and affect]. Assessment and plan Acute encephalopathy I suspect is due hypertension urgency versus Transient global amnesia versus other etiology Patient blood pressure improved in the ED. Patient's mentation also improved Hypertension urgency Resolved in the ED after one-time dose of IV hydralazine Will continue with amlodipine 5 mg p.o. twice daily Hydralazine 50 mg p.o. twice daily Metoprolol 100 mg p.o. twice daily Hyponatremia Consult nephrology for dialysis Hyperkalemia Patient has no peaked T waves so we will hold off on aggressive treatment Will give the patient one-time dose of Lokelma Diabetes mellitus Patient on 10 units 70/30 Novolin daily Will start the patient on sliding scale insulin while in the hospital Gout Continue with allopurinol ESRD Consult nephrology DVT prophylaxis: Subcu heparin Past Medical History Past Medical History: Coronary Artery Disease (CAD), Diabetes Mellitus, Hypert ension, Renal Disease Additional Past Medical History / Comment(s): arthritis, gout, stage 4 kidney disease, dialysis History of Any Multi-Drug Resistant Organisms: None Reported Past Surgical History: Bladder Surgery, Coronary Bypass/CABG, Hysterectomy, Orthopedic Surgery Past Psychological History: Depression Smoking Status: Never smoker Past Alcohol Use History: Occasional Past Drug Use History: None Reported Medications and Allergies Home Medications Medication Instructions Recorded Confirmed Type allopurinoL [Allopurinol] 100 mg PO DAILY 06/02/15 02/28/24 History amLODIPine BESYLATE [Amlodipine 5 mg PO BID 06/02/15 02/28/24 History Besylate] ALPRAZolam [Xanax] 0.25 mg PO HS PRN 09/11/17 02/28/24 History Insulin NPH Hum/Reg Insulin Hm 10 units SQ DAILY 02/28/24 02/28/24 History [NovoLIN 70-30 Flexpen] Metoprolol Succinate (ER) [Toprol 100 mg PO BID 02/28/24 02/28/24 History Xl] hydrALAZINE HCL [Apresoline] 50 mg PO BID 02/28/24 02/28/24 History Allergies Allergy/AdvReac Type Severity Reaction Status Date / Time ciprofloxacin [From Cipro] Allergy Vomiting Verified 02/28/24 12:02 ciprofloxacin HCl Allergy Vomiting Verified 02/28/24 12:02 [From Cipro] ibuprofen [From Motrin] Allergy Unknown Verified 02/28/24 12:02 metformin [From Glucophage] Allergy Unknown Verified 02/28/24 12:02 Penicillins Allergy Rash/Hives Verified 02/28/24 12:02 Physical Exam Osteopathic Statement: *. No significant issues noted on an osteopathic structural exam other than those noted in the History and Physical/Consult. Vitals: Vital Signs Temp Pulse Resp BP Pulse Ox 02/28/24 14:11 97.9 F 67 17 135/69 100 02/28/24 12:53 63 16 164/74 100 02/28/24 12:08 67 16 164/73 98 02/28/24 11:40 62 187/67 100 02/28/24 11:22 61 18 183/75 100 02/28/24 09:26 97.4 F L 65 20 194/83 100 Intake and Output 02/28/24 02/28/24 02/28/24 06:59 14:59 22:59 Other: Weight 75.296 kg Results CBC & Chem 7: 02/28/24 10:46 02/28/24 10:46 Labs: Abnormal Lab Results - Last 24 Hours (Table) 02/28/24 02/28/24 Range/Units 10:46 10:46 WBC 10.7 H (3.8-10.6) k/uL RBC 3.61 L (3.80-5.40) m/uL MCV 102.4 H (80.0-100.0) fL Neutrophils # 8.4 H (1.3-7.7) k/uL Sodium 123 L (137-145) mmol/L Potassium 6.0 H (3.5-5.1) mmol/L Chloride 87 L (98-107) mmol/L Carbon Dioxide 21 L (22-30) mmol/L BUN 43 H (7-17) mg/dL Creatinine 8.25 H* (0.52-1.04) mg/dL Glucose 137 H (74-99) mg/dL AST 41 H (14-36) U/L
[2024-02-28 16:21] VITALS: TEMP 98
[2024-02-28] MEDS: SODIUM ZIRCONIUM CYCLOSILICATE 10 GM PACKET PO ONE (16:26)
[2024-02-28] MEDS: INSULIN ASPART (NovoLOG) 100 UNIT/ML VIAL SQ SCH (18:21)
[2024-02-28 18:51] VITALS: BP 183/72; PULSE 67
[2024-02-28] MEDS ORDERED: hydrALAZINE HCL 50 MG TAB PO SCH (21:00)
[2024-02-28] MEDS ORDERED: amLODIPine 5 MG TAB PO SCH (21:00)
[2024-02-28] MEDS ORDERED: HEPARIN SODIUM,PORCINE 5,000 UNIT/ML 1 ML VIAL SQ SCH (21:00)
[2024-02-28] MEDS ORDERED: METOPROLOL SUCCINATE (ER) 100 MG TAB.ER.24H PO SCH (21:00)
[2024-02-29] MEDS ORDERED: allopurinoL 100 MG TAB PO SCH (09:00)
--- NOTE | 2024-02-29 09:45 | P.DS ---
Providers Date of admission: 02/28/24 12:24 Attending physician: Neftali Luis MD Consults: 02/28/24 12:23 Consult Physician Urgent Consulting Provider: Kady Kearns Consult Reason/Comments: Dialysis, hyponatremia, hypernatremia Do you want consulting provider notified?: Yes Primary care physician: Physician Nonstaff Hospital Course: Discharge Diagnosis: Acute encephalopathy which I suspect is due to hypertension urgency versus transient global amnesia versus other etiology Hypertension urgency Hyponatremia Hyperkalemia Diabetes mellitus Gout ESRD Hospital Course: Patient is a 79-year-old female with a past medical history of diabetes mellitus, hypertension, gout, ESRD who was sent from dialysis due to altered mental status and high blood pressure. Patient states that she normally goes to 2 different dialysis centers in [facility] and [facility]. She mistakenly went to the [facility] dialysis center when she was supposed to go to the one in [facility]. Patient then went to the [facility] dialysis center where she was confused. Daughter was called to pick her up and take her to the emergency room. Daughter currently at bedside. Daughter states that patient's mental status is back to baseline. Patient states that she does not remember driving from the [facility] dialysis center to the [facility] dialysis center. Patient otherwise has no complaints. In the ED patient's sodium was 123 and potassium 6.0 and creatinine 8.25 and BUN 43. Patient's blood pressure initially elevated at systolically 183. Patient was given one-time dose of IV hydralazine 10 mg. Blood pressure has now improved to systolically 135. Patient was mainly admitted so that she could have dialysis. Patient needed dialysis due to the hyperkalemia as well as the hyponatremia. However patient later in the evening decided to leave AGAINST MEDICAL ADVICE. It does not appear that physician was contacted. I was never contacted. Patient seen and examined at bedside.[] Please see my H&P for physical exam A total of [10] minutes of time were spent preparing this complex discharge summary . Patient left medical advice on 02/29/2024 Plan - Discharge Summary New Discharge Prescriptions: No Action amLODIPine BESYLATE [Amlodipine Besylate] 5 mg PO BID allopurinoL [Allopurinol] 100 mg PO DAILY ALPRAZolam [Xanax] 0.25 mg PO HS PRN PRN Reason: Insomnia Metoprolol Succinate (ER) [Toprol Xl] 100 mg PO BID Insulin NPH Hum/Reg Insulin Hm [NovoLIN 70-30 Flexpen] 10 units SQ DAILY hydrALAZINE HCL [Apresoline] 50 mg PO BID Discharge Medication List allopurinoL [Allopurinol] 100 mg PO DAILY 06/02/15 [History] amLODIPine BESYLATE [Amlodipine Besylate] 5 mg PO BID 06/02/15 [History] ALPRAZolam [Xanax] 0.25 mg PO HS PRN 09/11/17 [History] Insulin NPH Hum/Reg Insulin Hm [NovoLIN 70-30 Flexpen] 10 units SQ DAILY 02/28/24 [History] Metoprolol Succinate (ER) [Toprol Xl] 100 mg PO BID 02/28/24 [History] hydrALAZINE HCL [Apresoline] 50 mg PO BID 02/28/24 [History] Follow up Appointment(s)/Referral(s): Nonstaff,Physician [Primary Care Provider] - 1-2 days Discharge Disposition: LEFT AGAINST MEDICAL ADVICE
[2024-03-01 07:01] LABS: Glucose,Whole Blood 126 mg/dL (70-110)
[2024-03-01 07:02] LABS: Glucose,Whole Blood 128 mg/dL (70-110)
== END 2024-02-28 19:45 | disposition left against medical advice (07) ==
LOC: EC 09:25 → 5NMEDONC 12:24
PROVIDERS: ADMIT Internal Medicine; ATTEND Internal Medicine
CPT/HCPCS: 36415; 70450; 71046; 80053; 84484; 85025; 85610; 85730; 93005; 96374; 96375; 99285

== ENCOUNTER 2024-03-05 16:31 | Emergency (ER) | payer MEDICARE ==
[2024-03-05 16:43] VITALS: TEMP 97.4
--- NOTE | 2024-03-05 17:42 | XR ---
EXAMINATION TYPE: XR KUB DATE OF EXAM: 03/05/2024 Comparison: 07/22/2023 Clinical History: 79-year-old female Constipation Findings: Lung bases are clear. No evidence for free intraperitoneal air. Atherosclerotic calcification splenic artery noted. No evidence for free intraperitoneal air. Scattered air-fluid levels within the transv erse colon. No dilated small bowel loops are seen. There is moderate stool in the left side of the co shireen and within the pelvis. Impression: 1. Air-fluid levels in the transverse colon could reflect liquid stool/enteritis. Overall nonobstruct daphney pattern at this time. Follow-up as clinically indicated. 2. Moderate stool in the left side of the colon. [facility], , 03/05/2024 5:40 PM
--- NOTE | 2024-03-05 17:49 | ED ---
General Adult HPI - General Chief complaint: Abdominal Pain Stated complaint: constipation Time Seen by Provider: 03/05/24 16:58 Source: patient, RN notes reviewed, old records reviewed Mode of arrival: ambulatory Limitations: no limitations - History of Present Illness Initial comments: 79 yo female presenting with chief complaint of constipation. Patient states she has been unable to move her bowels for the past 3 days. Patient denies significant abdominal pain. No vomiting. No fever. Patient has history of end-stage renal disease on hemodialysis scheduled for dialysis tomorrow. - Related Data Home Medications Medication Instructions Recorded Confirmed allopurinoL [Allopurinol] 100 mg PO DAILY 06/02/15 02/28/24 amLODIPine BESYLATE [Amlodipine 5 mg PO BID 06/02/15 02/28/24 Besylate] ALPRAZolam [Xanax] 0.25 mg PO HS PRN 09/11/17 02/28/24 Insulin NPH Hum/Reg Insulin Hm 10 units SQ DAILY 02/28/24 02/28/24 [NovoLIN 70-30 Flexpen] Metoprolol Succinate (ER) [Toprol 100 mg PO BID 02/28/24 02/28/24 Xl] hydrALAZINE HCL [Apresoline] 50 mg PO BID 02/28/24 02/28/24 Previous Rx's Medication Instructions Recorded Lactulose [Cephulac] 20 gm PO BID PRN #240 ml 03/05/24 Allergies Allergy/AdvReac Type Severity Reaction Status Date / Time ciprofloxacin [From Cipro] Allergy Vomiting Verified 03/05/24 16:43 ciprofloxacin HCl Allergy Vomiting Verified 03/05/24 16:43 [From Cipro] ibuprofen [From Motrin] Allergy Unknown Verified 03/05/24 16:43 metformin [From Glucophage] Allergy Unknown Verified 03/05/24 16:43 Penicillins Allergy Rash/Hives Verified 03/05/24 16:43 Review of Systems ROS Statement: Those systems with pertinent positive or pertinent negative responses have been documented in the HPI. ROS Other: All systems not noted in ROS Statement are negative. Past Medical History Past Medical History: Coronary Artery Disease (CAD), Diabetes Mellitus, Hypertension, Renal Disease Additional Past Medical History / Comment(s): arthritis, gout, stage 4 kidney disease, dialysis History of Any Multi-Drug Resistant Organisms: None Reported Past Surgical History: Bladder Surgery, Coronary Bypass/CABG, Hysterectomy, Orthopedic Surgery Past Psychological History: Depression Smoking Status: Never smoker Past Alcohol Use History: Occasional Past Drug Use History: None Reported General Exam Limitations: no limitations General appearance: alert, in no apparent distress Head exam: Present: atraumatic, normocephalic Eye exam: Present: normal appearance, PERRL ENT exam: Present: normal exam Neck exam: Present: normal inspection. Absent: tenderness, meningismus Respiratory exam: Present: normal lung sounds bilaterally. Absent: respiratory distress, wheezes Cardiovascular Exam: Present: regular rate, normal rhythm GI/Abdominal exam: Present: soft. Absent: distended, tenderness, guarding Rectal exam: Absent: black stool, bloody stool, fecal impaction, hemorrhoids, mass Neurological exam: Present: alert, oriented X3 Psychiatric exam: Present: normal affect, normal mood Skin exam: Present: warm, dry, intact Course Vital Signs 03/05/24 16:40 Temperature 97.4 F L Pulse Rate 63 Respiratory 18 Rate Blood Pressure 166/82 O2 Sat by Pulse 98 Oximetry Medical Decision Making - Medical Decision Making Was pt. sent in by a medical professional or institution (Dr. PA, SHOOK MACHINE OPERATOR, urgent care, hospital, or fci...) When possible be specific @ -No Did you speak to anyone other than the patient for history (EMS, parent, family, police, friend...)? What history was obtained from this source @ -No Did you review nursing and triage notes (agree or disagree)? Why? @ -I reviewed and agree with nursing and triage notes Were old charts reviewed (outside hosp., previous admission, EMS record, old EKG, old radiological studies, urgent care reports/EKG's, fci records)? Report findings @ -No old charts were reviewed Differential Diagnosis (chest pain, altered mental status, abdominal pain women, abdominal pain men, vaginal bleeding, weakness, fever, dyspnea, syncope, headache, dizziness, GI bleed, back pain, seizure, CVA, palpatations, mental health, musculoskeletal)? @ -Not applicable EKG interpreted by me (3pts min.). @ -As above X-rays interpreted by me (1pt min.). @ -KUB negative for obstruction, moderate stool burden CT interpreted by me (1pt min.). @ -None done U/S interpreted by me (1pt. min.). @ -None done What testing was considered but not performed or refused? (CT, X-rays, U/S, labs)? Why? @ -None What meds were considered but not given or refused? Why? @ -None Did you discuss the management of the patient with other professionals (professionals i.e. , PA, SHOOK MACHINE OPERATOR, lab, RT, psych nurse, renal social worker, central supply nurse, teacher, commercial loan officer, lining caser)? Give summary @ -No Was smoking cessation discussed for >3mins.? @ -No Was critical care preformed (if so, how long)? @ -No Were there social determinants of health that impacted care today? How? (Homelessness, low income, unemployed, alcoholism, drug addiction, transportation, low edu. Level, literacy, decrease access to med. care, [facility], rehab)? @ -No Was there de-escalation of care discussed even if they declined (Discuss DNR or withdrawal of care, Hospice)? DNR status @ -No What co-morbidities impacted this encounter? (DM, HTN, Smoking, COPD, CAD, Cancer, CVA, ARF, Chemo, Hep., AIDS, mental health diagnosis, sleep apnea, morbid obesity)? @ -None Was patient admitted / discharged? Hospital course, mention meds given and route, prescriptions, significant lab abnormalities, going to OR and other pertinent info. @ -79-year-old female with chief complaint of constipation. No abdominal tenderness on exam. Vital signs stable. Patient given enema without relief. I did do a rectal exam there is no impacted stool. Patient will require a laxative. Placed on lactulose. Return parameters discussed at length. Patient will follow-up for colonoscopy as an outpatient. Undiagnosed new problem with uncertain prognosis? @ -No Drug Therapy requiring intensive monitoring for toxicity (Heparin, Nitro, Insulin, Cardizem)? @ -No Were any procedures done? @ -No Diagnosis/symptom? @Constipation Acute, or Chronic, or Acute on Chronic? @ -Acute Uncomplicated (without systemic symptoms) or Complicated (systemic symptoms)? @ -Default Side effects of treatment? @ -No Exacerbation, Progression, or Severe Exacerbation? @ -No Poses a threat to life or bodily function? How? (Chest pain, [place], [place], pneumonia, PE, COPD, DKA, ARF, appy, cholecystitis, CVA, Diverticulitis, Homicidal, Suicidal, threat to staff... and all critical care pts) @ -No Disposition Clinical Impression: Constipation Disposition: HOME SELF-CARE Condition: Fair Instructions (If sedation given, give patient instructions): Constipation (ED) Prescriptions: Lactulose [Cephulac] 20 gm PO BID PRN #240 ml PRN Reason: Constipation Is patient prescribed a controlled substance at d/c from ED?: No Referrals: Nonstaff,Physician [Primary Care Provider] - 1-2 days Sylvia Drake MD [STAFF PHYSICIAN] - 1-2 days Time of Disposition: 19:36
[2024-03-05] MEDS: LACTULOSE 20 GM/30 ML CUP PO ONE (20:11)
[2024-03-05 20:19] VITALS: BP 125/65; PULSE 76; RESP 16
== END 2024-03-05 20:10 | disposition home or self-care (01) ==
LOC: EC 16:31
CPT/HCPCS: 74018; 99284

== ENCOUNTER 2024-11-23 08:47 | Observation (INO) | payer MEDICARE ==
[2024-11-23 09:30] LABS: WBC 9.33 10*3/uL (4.50-10.00)
[2024-11-23 09:31] LABS: Basophils # (A) 0.08 10*3/uL (0.00-0.10); Basophils % (A) 0.9 %; Eosinophils # (A) 0.23 10*3/uL (0.04-0.35); Eosinophils % (A) 2.5 %; HCT 31.8 % (37.2-46.3); HGB 10.4 g/dL (12.0-15.0); Lymphocytes # (A) 1.93 10*3/uL (0.90-5.00); Lymphocytes % (A) 20.7 %; MCH 33.5 pg (27.0-32.0); MCHC 32.7 g/dL (32.0-37.0); MCV 102.6 fL (80.0-97.0); Mean Platelet Volume 9.6 fL (9.5-12.2); Monocytes # (A) 0.68 10*3/uL (0.20-1.00); Monocytes % (A) 7.3 %; Neutrophils # (A) 6.38 10*3/uL (1.80-7.70); Neutrophils % (A) 68.3 %; Platelet Count 197 10*3/uL (140-440); RDW 13.8 % (11.5-14.5)
--- NOTE | 2024-11-23 09:38 | ED ---
General Adult HPI - General Chief complaint: Shortness of Breath Stated complaint: SOB Time Seen by Provider: 11/23/24 08:59 Source: patient, RN notes reviewed, old records reviewed Mode of arrival: ambulatory Limitations: no limitations - History of Present Illness Initial comments: 79-year-old female history of CAD, end-stage renal disease on hemodialysis presenting for evaluation of dyspnea. Patient states that her dyspnea is worse when lying flat and worse with exertion. She states she had hemodialysis yesterday and they removed 3 L of fluid. She denies cough. She denies fever. She denies central chest pain. - Related Data Home Medications Medication Instructions Recorded Confirmed allopurinoL [Allopurinol] 100 mg PO DAILY 06/02/15 02/28/24 amLODIPine BESYLATE [Amlodipine 5 mg PO BID 06/02/15 02/28/24 Besylate] ALPRAZolam [Xanax] 0.25 mg PO HS PRN 09/11/17 02/28/24 Insulin NPH Hum/Reg Insulin Hm 10 units SQ DAILY 02/28/24 02/28/24 [NovoLIN 70-30 Flexpen] Metoprolol Succinate (ER) [Toprol 100 mg PO BID 02/28/24 02/28/24 Xl] hydrALAZINE HCL [Apresoline] 50 mg PO BID 02/28/24 02/28/24 Previous Rx's Medication Instructions Recorded Lactulose [Cephulac] 20 gm PO BID PRN #240 ml 03/05/24 Allergies Allergy/AdvReac Type Severity Reaction Status Date / Time ciprofloxacin [From Cipro] Allergy Vomiting Verified 11/23/24 08:57 ciprofloxacin HCl Allergy Vomiting Verified 11/23/24 08:57 [From Cipro] ibuprofen [From Motrin] Allergy Unknown Verified 11/23/24 08:57 metformin [From Glucophage] Allergy Unknown Verified 11/23/24 08:57 Penicillins Allergy Rash/Hives Verified 11/23/24 08:57 Review of Systems ROS Statement: Those systems with pertinent positive or pertinent negative responses have been documented in the HPI. ROS Other: All systems not noted in ROS Statement are negative. Past Medical History Past Medical History: Coronary Artery Disease (CAD), Diabetes Mellitus, Hypertension, Renal Disease Additional Past Medical History / Comment(s): arthritis, gout, stage 4 kidney disease, dialysis History of Any Multi-Drug Resistant Organisms: None Reported Past Surgical History: Bladder Surgery, Coronary Bypass/CABG, Hysterectomy, Orthopedic Surgery Past Psychological History: Depression Smoking Status: Never smoker Past Alcohol Use History: Occasional Past Drug Use History: None Reported General Exam Limitations: no limitations General appearance: alert, in no apparent distress Head exam: Present: atraumatic, normocephalic Eye exam: Present: normal appearance, PERRL Neck exam: Present: normal inspection. Absent: tenderness, meningismus Respiratory exam: Present: normal lung sounds bilaterally. Absent: respiratory distress, wheezes, rales, rhonchi Cardiovascular Exam: Present: regular rate, normal rhythm GI/Abdominal exam: Present: soft. Absent: distended, tenderness, guarding Extremities exam: Present: normal capillary refill, pedal edema Neurological exam: Present: alert, oriented X3, CN II-XII intact. Absent: motor sensory deficit Course Vital Signs 11/23/24 11/23/24 11/23/24 08:53 09:24 10:10 Temperature 97.6 F 97.8 F Pulse Rate 68 64 62 Respiratory 18 18 18 Rate Blood Pressure 205/74 191/78 181/75 O2 Sat by Pulse 100 98 95 Oximetry Medical Decision Making - Medical Decision Making Was pt. sent in by a medical professional or institution (, PA, PELLET PRESS OPERATOR, urgent care, hospital, or detention...) When possible be specific @ -No Did you speak to anyone other than the patient for history (EMS, parent, family, police, friend...)? What history was obtained from this source @ -No Did you review nursing and triage notes (agree or disagree)? Why? @ -I reviewed and agree with nursing and triage notes Were old charts reviewed (outside hosp., previous admission, EMS record, old EKG, old radiological studies, urgent care reports/EKG's, detention records)? Report findings @ -No old charts were reviewed Differential Dyspnea: Coronary syndrome, arrhythmia, tamponade, asthma, COPD, pulmonary embolism, pneumonia, pneumothorax, pulmonary effusion, anaphylaxis, diabetic ketoacidosis, flailed chest, pulmonary contusion, diaphragmatic rupture, anemia, neuromuscular, this is not meant to be an all-inclusive list. EKG interpreted by me (3pts min.). @ -Sinus rhythm with a first-degree AV block rate of 66, DE interval 210, QRS duration 95, QTc 470 X-rays interpreted by me (1pt min.). @ -[Chest x-ray shows pulmonary vascular congestion CT interpreted by me (1pt min.). @ -None done U/S interpreted by me (1pt. min.). @ -None done What testing was considered but not performed or refused? (CT, X-rays, U/S, labs)? Why? @ -None What meds were considered but not given or refused? Why? @ -None Did you discuss the management of the patient with other professionals (professionals i.e. DrBrooks, PA, PELLET PRESS OPERATOR, lab, RT, psych nurse, 7th grade social studies teacher, mud analysis well logging captain, teacher, chief marketing officer, therapeutic case manager)? Give summary @ -Dr. Love will admit, Dr. Kearns will arrange for dialysis Was smoking cessation discussed for >3mins.? @ -No Was critical care preformed (if so, how long)? @ -No Were there social determinants of health that impacted care today? How? (Homelessness, low income, unemployed, alcoholism, drug addiction, transportation, low edu. Level, literacy, decrease access to med. care, retirement, rehab)? @ -No Was there de-escalation of care discussed even if they declined (Discuss DNR or withdrawal of care, Hospice)? DNR status @ -No What co-morbidities impacted this encounter? (DM, HTN, Smoking, COPD, CAD, Cancer, CVA, ARF, Chemo, Hep., AIDS, mental health diagnosis, sleep apnea, morbid obesity)? @ -End-stage renal disease on hemodialysis, CAD Was patient admitted / discharged? Hospital course, mention meds given and route, prescriptions, significant lab abnormalities, going to OR and other pertinent info. @ -[79-year-old female with increased dyspnea, orthopnea. X-ray shows pulmonary vascular congestion. BNP is significantly elevated. The remainder of her testing is unremarkable. Patient will receive hemodialysis at this hospital as it is Monday afternoon currently. Admitted to internal medicine with nephrology on consult Undiagnosed new problem with uncertain prognosis? @ -No Drug Therapy requiring intensive monitoring for toxicity (Heparin, Nitro, Insulin, Cardizem)? @ -No Were any procedures done? @ -No Diagnosis/symptom? @Fluid overload Acute, or Chronic, or Acute on Chronic? @Acute Uncomplicated (without systemic symptoms) or Complicated (systemic symptoms)? @ -Default Side effects of treatment? @ -No Exacerbation, Progression, or Severe Exacerbation? @ -No Poses a threat to life or bodily function? How? (Chest pain, [place], [place], pneumonia, PE, COPD, DKA, ARF, appy, cholecystitis, CVA, Diverticulitis, Homicidal, Suicidal, threat to staff... and all critical care pts) @ -Yes, hypoxic respiratory failure - Lab Data Result diagrams: 11/23/24 09:20 11/23/24 09:20 Lab Results 11/23/24 11/23/24 11/23/24 Range/Units 09:20 09:20 09:20 WBC 9.33 (4.50-10.00) 10*3/uL RBC 3.10 L (4.10-5.20) 10*6/uL Hgb 10.4 L (12.0-15.0) g/dL Hct 31.8 L (37.2-46.3) % MCV 102.6 H (80.0-97.0) fL MCH 33.5 H (27.0-32.0) pg MCHC 32.7 (32.0-37.0) g/dL Plt Count 197 (140-440) 10*3/uL MPV 9.6 (9.5-12.2) fL Immature Gran % (Auto) 0.3 % Neutrophils % 68.3 % Lymphocytes % 20.7 % Monocytes % 7.3 % Eosinophils % 2.5 % Basophils % 0.9 % Immature Gran # 0.03 (0.00-0.04) 10*3/uL Neutrophils # 6.38 (1.80-7.70) 10*3/uL Lymphocytes # 1.93 (0.90-5.00) 10*3/uL Monocytes # 0.68 (0.20-1.00) 10*3/uL Eosinophils # 0.23 (0.04-0.35) 10*3/uL Basophils # 0.08 (0.00-0.10) 10*3/uL PT 10.9 (10.0-12.5) sec INR 1.0 (<1.2) APTT 22.4 (22.0-30.0) sec Sodium 132 L (137-145) mmol/L Potassium 4.7 (3.5-5.1) mmol/L Chloride 92 L (98-107) mmol/L Carbon Dioxide 27 (22-30) mmol/L Anion Gap 13 mmol/L BUN 26 H (7-17) mg/dL Creatinine 5.21 H (0.52-1.04) mg/dL Est GFR (CKD-EPI)AfAm 8 (>60 ml/min/1.73 sqM) Est GFR (CKD-EPI)NonAf 7 (>60 ml/min/1.73 sqM) Glucose 159 H (74-99) mg/dL Calcium 9.3 (8.4-10.2) mg/dL Total Bilirubin 0.6 (0.2-1.3) mg/dL AST 25 (14-36) U/L ALT 15 (4-34) U/L Alkaline Phosphatase 112 (38-126) U/L Troponin I (0.000-0.034) ng/mL NT-Pro-B Natriuret Pep 77235 pg/mL Total Protein 7.0 (6.3-8.2) g/dL Albumin 4.6 (3.5-5.0) g/dL 11/23/24 Range/Units 09:20 WBC (4.50-10.00) 10*3/uL RBC (4.10-5.20) 10*6/uL Hgb (12.0-15.0) g/dL Hct (37.2-46.3) % MCV (80.0-97.0) fL MCH (27.0-32.0) pg MCHC (32.0-37.0) g/dL Plt Count (140-440) 10*3/uL MPV (9.5-12.2) fL Immature Gran % (Auto) % Neutrophils % % Lymphocytes % % Monocytes % % Eosinophils % % Basophils % % Immature Gran # (0.00-0.04) 10*3/uL Neutrophils # (1.80-7.70) 10*3/uL Lymphocytes # (0.90-5.00) 10*3/uL Monocytes # (0.20-1.00) 10*3/uL Eosinophils # (0.04-0.35) 10*3/uL Basophils # (0.00-0.10) 10*3/uL PT (10.0-12.5) sec INR (<1.2) APTT (22.0-30.0) sec Sodium (137-145) mmol/L Potassium (3.5-5.1) mmol/L Chloride (98-107) mmol/L Carbon Dioxide (22-30) mmol/L Anion Gap mmol/L BUN (7-17) mg/dL Creatinine (0.52-1.04) mg/dL Est GFR (CKD-EPI)AfAm (>60 ml/min/1.73 sqM) Est GFR (CKD-EPI)NonAf (>60 ml/min/1.73 sqM) Glucose (74-99) mg/dL Calcium (8.4-10.2) mg/dL Total Bilirubin (0.2-1.3) mg/dL AST (14-36) U/L ALT (4-34) U/L Alkaline Phosphatase (38-126) U/L Troponin I 0.019 (0.000-0.034) ng/mL NT-Pro-B Natriuret Pep pg/mL Total Protein (6.3-8.2) g/dL Albumin (3.5-5.0) g/dL Disposition Clinical Impression: Congestive heart failure, Fluid overload Disposition: ADMITTED IP TO THIS HOSP Condition: Stable Is patient prescribed a controlled substance at d/c from ED?: No Referrals: Nonstaff,Physician [Primary Care Provider] - 1-2 days Time of Disposition: 12:17
[2024-11-23 09:43] LABS: ALT 15 U/L (4-34); AST 25 U/L (14-36); African American GFR (CKD) 8 (>60 ml/min/1.73 sqM); Albumin 4.6 g/dL (3.5-5.0); Alkaline Phosphatase 112 U/L (38-126); Anion Gap 13 mmol/L; Blood Urea Nitrogen 26 mg/dL (7-17); Calcium 9.3 mg/dL (8.4-10.2); Carbon Dioxide 27 mmol/L (22-30); Chloride 92 mmol/L (98-107); Glucose 159 mg/dL (74-99); Non-African American GFR(CKD) 7 (>60 ml/min/1.73 sqM); Potassium 4.7 mmol/L (3.5-5.1); Sodium 132 mmol/L (137-145); Total Bilirubin 0.6 mg/dL (0.2-1.3)
[2024-11-23 09:45] LABS: Partial Thromboplastin Time 22.4 sec (22.0-30.0); Prothrombin Time 10.9 sec (10.0-12.5)
--- NOTE | 2024-11-23 09:45 | XR ---
EXAMINATION TYPE: XR chest 2V DATE OF EXAM: 11/23/2024 9:38 AM COMPARISON: Chest radiographs from 02/28/2024 CLINICAL INDICATION: Female, 79 years old with history of difficulty breathing; [facility] TECHNIQUE: XR chest 2V Frontal and lateral views of the chest. FINDINGS: Lungs/Pleura: There is no evidence of pleural effusion, focal consolidation, or pneumothorax. Pulmonary vascularity: Pulmonary vascular congestion. Heart/mediastinum: Cardiomediastinal silhouette is enlarged. Musculoskeletal: No acute osseous pathology. IMPRESSION: Cardiomegaly and mild pulmonary vascular congestion. Correlate with BNP for congestive heart failure. [facility], , 11/23/2024 9:43 AM
[2024-11-23 10:08] LABS: NT-Pro-B-Type Natriuretic Pept 45700 pg/mL
[2024-11-23] MEDS ORDERED: NALOXONE 0.4 MG/ML 1 ML VIAL IV PRN (11:38)
--- NOTE | 2024-11-23 12:35 | P.NPCON ---
History of Present Illness - Reason for Consult end stage renal disease - History of Present Illness patient is an 79-year-old female with end-stage renal disease on hemodialysis on Monday vent is a Monday schedule at the [place] dialysis unit. She is admitted to the hospital with complaints of shortness of breath on exertion. She had her dialysis yesterday with about 3 L of fluid being removed. No chest pain Patient denies significant increase in fluid intake. No complaints of abdominal pain fever chills or nausea. Chest x-ray shows pulmonary vascular congestion and cardiomegaly Blood pressure is elevated with systolic in the 180s Past Medical History Past Medical History: Coronary Artery Disease (CAD), Diabetes Mellitus, Hypertension, Renal Disease Additional Past Medical History / Comment(s): arthritis, gout, stage 4 kidney disease, dialysis History of Any Multi-Drug Resistant Organisms: None Reported Past Surgical History: Bladder Surgery, Coronary Bypass/CABG, Hysterectomy, Orthopedic Surgery Past Psychological History: Depression Smoking Status: Never smoker Past Alcohol Use History: Occasional Past Drug Use History: None Reported Medications and Allergies Home Medications Medication Instructions Recorded Confirmed Type allopurinoL [Allopurinol] 100 mg PO DAILY 06/02/15 02/28/24 History amLODIPine BESYLATE [Amlodipine 5 mg PO BID 06/02/15 02/28/24 History Besylate] ALPRAZolam [Xanax] 0.25 mg PO HS PRN 09/11/17 02/28/24 History Insulin NPH Hum/Reg Insulin Hm 10 units SQ DAILY 02/28/24 02/28/24 History [NovoLIN 70-30 Flexpen] Metoprolol Succinate (ER) [Toprol 100 mg PO BID 02/28/24 02/28/24 History Xl] hydrALAZINE HCL [Apresoline] 50 mg PO BID 02/28/24 02/28/24 History Lactulose [Cephulac] 20 gm PO BID PRN #240 ml 03/05/24 Rx Allergies Allergy/AdvReac Type Severity Reaction Status Date / Time ciprofloxacin [From Cipro] Allergy Vomiting Verified 11/23/24 08:57 ciprofloxacin HCl Allergy Vomiting Verified 11/23/24 08:57 [From Cipro] ibuprofen [From Motrin] Allergy Unknown Verified 11/23/24 08:57 metformin [From Glucophage] Allergy Unknown Verified 11/23/24 08:57 Penicillins Allergy Rash/Hives Verified 11/23/24 08:57 Physical Exam Vitals: Vital Signs Temp Pulse Resp BP Pulse Ox 11/23/24 10:10 62 18 181/75 95 11/23/24 09:24 97.8 F 64 18 191/78 98 11/23/24 08:53 97.6 F 68 18 205/74 100 Intake and Output 11/22/24 11/23/24 11/23/24 22:59 06:59 14:59 Other: Weight 73.936 kg patient is awake, comfortable, alert oriented 3 No acute distress Examination of the heart S1 and S2 Examination of the lungs bilateral breath sounds are heard Abdomen is soft nontender Examination of lower extremities shows no significant edema Results - Lab Results Most recent lab results Calcium 9.3 mg/dL (8.4-10.2) 11/23/24 09:20 11/23/24 09:20 11/23/24 09:20 Assessment and Plan Assessment: 1. End-stage renal disease on hemodialysis on Monday schedule via left arm AV fistula 2. Volume overload 3. Hypertension partly volume sensitive, uncontrolled 4.CK D mineral bone disorder Plan: hemodialysis today with UF of about 2-2.5 L. Patient can be discharged postdialysis. Patient is advised to maintain salt and fluid restriction. Her dry weight will be adjusted as outpatient.
[2024-11-23] MEDS ORDERED: LACTULOSE 20 GM/30 ML CUP PO PRN (17:51)
[2024-11-23] MEDS ORDERED: ALPRAZolam 0.5 MG TAB PO PRN (17:51)
[2024-11-23] MEDS: amLODIPine 5 MG TAB PO SCH (17:58)
[2024-11-23] MEDS: hydrALAZINE HCL 50 MG TAB PO SCH (17:58)
[2024-11-23] MEDS: METOPROLOL SUCCINATE (ER) 100 MG TAB.ER.24H PO SCH (17:58)
[2024-11-23] MEDS: VALSARTAN 160 MG TAB PO SCH (18:26)
[2024-11-23 20:07] VITALS: RESP 18
--- NOTE | 2024-11-23 23:18 | P.HPIM ---
History of Present Illness This is a pleasant 79 years old female with past medical history of end-stage renal disease on hemodialysis Presents from her CT because of worsening shortness of breath, yesterday she got hemodialysis with 3 L removed there is no hemodialysis in her area over the weekend so she had to come to the hospital Currently she is sitting up in bed, no significant tachypnea no chest pain no other new complaint, minimal leg swelling Patient denies any change in eating or drinking habits. Vitals are stable and patient is afebrile Labs stable CBC, BMP, LFT, INR, troponin chest x-ray showing cardiomegaly and pulmonary vascular congestion EKG shows sinus rhythm at [address]-T changes, Review of Systems Review of systems CONSTITUTIONAL: No fever, no malaise, no fatigue. HEENT: No recent visual problems or hearing problems. Denied any sore throat. CARDIOVASCULAR: No orthopnea, PND, no palpitations, no syncope. PULMONARY: no cough, no hemoptysis. GASTROINTESTINAL: No diarrhea, no nausea, no vomiting, no abdominal pain. Normoactive bowel sounds. NEUROLOGICAL: No headaches, no weakness, no numbness. HEMATOLOGICAL: Denies any bleeding or petechiae. GENITOURINARY: Denies any burning micturition, frequency, or urgency. MUSCULOSKELETAL/RHEUMATOLOGICAL: Denies any joint pain, swelling, or any muscle pain. ENDOCRINE: Denies any polyuria or polydipsia. Past Medical History Past Medical History: Coronary Artery Disease (CAD), Diabetes Mellitus, Hypertension, Renal Disease Additional Past Medical History / Comment(s): arthritis, gout, stage 4 kidney disease, dialysis History of Any Multi-Drug Resistant Organisms: None Reported Past Surgical History: Bladder Surgery, Coronary Bypass/CABG, Hysterectomy, Orthopedic Surgery Smoking Status: Never smoker Medications and Allergies Home Medications Medication Instructions Recorded Confirmed Type allopurinoL [Allopurinol] 100 mg PO DAILY 06/02/15 11/23/24 History amLODIPine BESYLATE [Amlodipine 5 mg PO BID 06/02/15 11/23/24 History Besylate] Insulin NPH Hum/Reg Insulin Hm 3 - 9 units SQ AC-BID PRN 02/28/24 11/23/24 History [NovoLIN 70-30 Flexpen] Metoprolol Succinate (ER) [Toprol 100 mg PO BID 02/28/24 11/23/24 History Xl] hydrALAZINE HCL [Apresoline] 50 mg PO BID 02/28/24 11/23/24 History Lactulose [Cephulac] 20 gm PO BID PRN #240 ml 03/05/24 11/23/24 Rx ALPRAZolam [Xanax] 0.5 mg PO HS PRN 11/23/24 11/23/24 History Atorvastatin [Lipitor] 80 mg PO DAILY 11/23/24 11/23/24 History Lidocaine-Prilocaine Cream [Emla 1 applic TOPICAL DAILY 11/23/24 11/23/24 History Cream 2.5%/2.5%] Valsartan [Diovan] 320 mg PO DAILY 11/23/24 11/23/24 History Allergies Allergy/AdvReac Type Severity Reaction Status Date / Time ciprofloxacin [From Cipro] Allergy Vomiting Verified 11/23/24 12:43 ciprofloxacin HCl Allergy Vomiting Verified 11/23/24 12:43 [From Cipro] ibuprofen [From Motrin] Allergy Unknown Verified 11/23/24 12:43 metformin [From Glucophage] Allergy Unknown Verified 11/23/24 12:43 Penicillins Allergy Rash/Hives Verified 11/23/24 12:43 Physical Exam Vitals: Vital Signs Temp Pulse Pulse Resp BP BP Pulse Ox 11/23/24 22:33 146/60 11/23/24 21:14 189/70 11/23/24 20:31 97.6 F 64 18 201/67 98 11/23/24 20:06 61 18 194/73 95 11/23/24 19:40 59 L 16 195/75 95 11/23/24 19:39 96.6 F L 18 235/110 11/23/24 18:28 60 18 220/91 97 11/23/24 18:01 59 L 16 239/91 97 11/23/24 15:20 58 L 18 203/88 96 11/23/24 10:10 62 18 181/75 95 11/23/24 09:24 97.8 F 64 18 191/78 98 11/23/24 08:53 97.6 F 68 18 205/74 100 Intake and Output 11/23/24 11/23/24 11/24/24 14:59 22:59 06:59 Intake Total 400 Output Total 4400 Balance -4000 Intake: Hemodialysis 400 Output: Hemodialysis 2400 Hemodialysis Net Amount 2000 Other: Voiding Method Toilet Weight 73.936 kg 73.936 kg GENERAL: The patient is alert and oriented x3, not in any acute distress. Well developed, well nourished. HEENT: Pupils are round and equally reacting to light. EOMI. No scleral icterus. No conjunctival pallor. Normocephalic, atraumatic. No pharyngeal erythema. No thyromegaly. CARDIOVASCULAR: S1 and S2 present. No murmurs, rubs, or gallops. PULMONARY: Chest is clear to auscultation, no wheezing , no crackles. ABDOMEN: Soft, nontender, nondistended, normoactive bowel sounds. No palpable organomegaly. MUSCULOSKELETAL: No joint swelling or deformity. EXTREMITIES: No cyanosis, clubbing, or pedal edema. NEUROLOGICAL: Gross neurological examination did not reveal any focal deficits. SKIN: No rashes. no petechiae. Results CBC & Chem 7: 11/23/24 09:20 11/23/24 09:20 Labs: Abnormal Lab Results - Last 24 Hours (Table) 11/23/24 11/23/24 Range/Units 09:20 09:20 RBC 3.10 L (4.10-5.20) 10*6/uL Hgb 10.4 L (12.0-15.0) g/dL Hct 31.8 L (37.2-46.3) % MCV 102.6 H (80.0-97.0) fL MCH 33.5 H (27.0-32.0) pg Sodium 132 L (137-145) mmol/L Chloride 92 L (98-107) mmol/L BUN 26 H (7-17) mg/dL Creatinine 5.21 H (0.52-1.04) mg/dL Glucose 159 H (74-99) mg/dL Assessment and Plan Assessment: Acute shortness of breath possible CHF unknown ejection fraction suspected to be diastolic End-stage renal disease on hemodialysis Chronic anemia of chronic disease Hypertension with urgency Plan: Got hemodialysis today Resume her blood pressure medication Monitor blood pressure closely Nephrology team consult GI DVT prophylaxis Possible discharge tomorrow morning Prognosis remains guarded
[2024-11-24] MEDS: allopurinoL 100 MG TAB PO SCH (08:36)
[2024-11-24] MEDS: ATORVASTATIN 80 MG TAB PO SCH (08:36)
[2024-11-24 08:57] VITALS: BP 168/67; PULSE 67; TEMP 98.6
--- NOTE | 2024-11-24 12:29 | P.PN ---
Subjective Patient is seen for follow-up for end-stage renal disease. She was admitted to the hospital with shortness of breath and volume overload. Status post hemodialysis yesterday with UF of 2 L. Blood pressure has improved but remains elevated Shortness of breath has improved as well. Objective - Vital Signs Vital signs: Vital Signs Temp 98.6 F 11/24/24 08:02 Pulse 67 11/24/24 08:02 Resp 18 11/24/24 08:02 BP 168/67 11/24/24 08:02 Pulse Ox 96 11/24/24 08:02 FiO2 Intake & Output 11/23/24 11/24/24 11/24/24 18:59 06:59 18:59 Intake Total 400 Output Total 4400 Balance -4000 Weight 73.936 kg 73.936 kg Intake: Hemodialysis 400 Output: Hemodialysis 2400 Hemodialysis Net Amount 2000 Other: Voiding Method Toilet Toilet # Voids 2 - Exam patient is awake, comfortable, alert oriented 3 No acute distress Examination of the heart S1 and S2 Examination of the lungs bilateral breath sounds are heard Abdomen is soft nontender Examination of lower extremities shows no significant edema DUST MOP MAKER exam grossly intact - Labs CBC & Chem 7: 11/23/24 09:20 11/23/24 09:20 Assessment and Plan Assessment: 1. End-stage renal disease on hemodialysis on Monday schedule via left arm AV fistula 2. Volume overload 3. Hypertension partly volume sensitive, uncontrolled 4. CKD mineral bone disorder Plan: Repeat hemodialysis in a.m. This can be performed as outpatient. Continue current antihypertensive regimen. Can increase hydralazine to 50 mg 3 times daily if blood pressure remains elevated. Her dry weight will be adjusted as outpatient.
--- NOTE | 2024-11-24 12:50 | XR ---
EXAMINATION TYPE: XR KUB portable DATE OF EXAM: 11/24/2024 12:08 PM COMPARISON: 03/05/2024. CLINICAL INDICATION: Female, 79 years old with history of distended; [facility] TECHNIQUE: One radiographic view of the abdomen was obtained. FINDINGS: Large stool burden in the left abdomen. The bowel gas pattern is nonspecific without dilate d loops of small or large bowel. . Fecal material and gas are demonstrated throughout the colon and r ectum. There is no evidence for organomegaly or pneumoperitoneum. No acute osseous process. No abno rmal calcifications are present. Severe atherosclerosis of the arterial vasculature. Sternotomy wires . Mediastinal surgical clips. Multilevel degeneration changes of the spine. IMPRESSION: Large amount stool in the left abdomen [facility], , 11/24/2024 12:47 PM
--- NOTE | 2024-11-30 19:43 | P.DS ---
Providers Date of admission: 11/23/24 11:38 Attending physician: Veronica Fraire Consults: 11/23/24 11:38 Consult Physician Routine Consulting Provider: Kady Kearns Consult Reason/Comments: Fluid overload Do you want consulting provider notified?: Yes Primary care physician: Physician Nonstaff Hospital Course: diagnoses: Acute shortness of breath possible CHF unknown ejection fraction suspected to be diastolic End-stage renal disease on hemodialysis Chronic anemia of chronic disease Hypertension with urgency hospital course: This is a pleasant 79 years old female with past medical history of end-stage renal disease on hemodialysis Presents because of worsening shortness of breath, yesterday she got hemodialysis with 3 L removed, she needed more but there is no hemodialysis in her area over the weekend so she had to come to the hospital Her blood pressure was elevated but got controlled She denies any other complaint and she agrees to go home Patient was cleared for discharge by power wood sawyer Problems and management plan were discussed with the patient and he verbalized understanding and acceptance Patient was found stable and can be discharged home in guarded prognosis however he needs follow-up as an outpatient. Patient was instructed to follow up with PCP within one week and patient agrees Physical exam Gen: patient is a AAOx3, no distress CVS: S1-S2, RRR, no murmur Lungs: B/L CTA, no wheezing Abdomen: soft, no distention, no tenderness, positive bowel sounds Extremity: no leg edema or induration Time spent more than 35 minutes Patient Condition at Discharge: Stable Plan - Discharge Summary Discharge Rx Participant: Yes New Discharge Prescriptions: Continue amLODIPine BESYLATE [Amlodipine Besylate] 5 mg PO BID allopurinoL [Allopurinol] 100 mg PO DAILY Metoprolol Succinate (ER) [Toprol XL] 100 mg PO BID Insulin NPH Hum/Reg Insulin Hm [NovoLIN 70-30 Flexpen] 3 - 9 units SQ AC-BID PRN PRN Reason: Blood Sugar - High Valsartan [Diovan] 320 mg PO DAILY Lidocaine-Prilocaine Cream [Emla Cream 2.5%/2.5%] 1 applic TOPICAL DAILY hydrALAZINE HCL [Apresoline] 50 mg PO BID Lactulose [Cephulac] 20 gm PO BID PRN #240 ml PRN Reason: Constipation Atorvastatin [Lipitor] 80 mg PO DAILY ALPRAZolam [Xanax] 0.5 mg PO HS PRN PRN Reason: Insomnia Discharge Medication List allopurinoL [Allopurinol] 100 mg PO DAILY 06/02/15 [History] amLODIPine BESYLATE [Amlodipine Besylate] 5 mg PO BID 06/02/15 [History] Insulin NPH Hum/Reg Insulin Hm [NovoLIN 70-30 Flexpen] 3 - 9 units SQ AC-BID PRN 02/28/24 [History] Metoprolol Succinate (ER) [Toprol XL] 100 mg PO BID 02/28/24 [History] hydrALAZINE HCL [Apresoline] 50 mg PO BID 02/28/24 [History] Lactulose [Cephulac] 20 gm PO BID PRN #240 ml 03/05/24 [Rx] ALPRAZolam [Xanax] 0.5 mg PO HS PRN 11/23/24 [History] Atorvastatin [Lipitor] 80 mg PO DAILY 11/23/24 [History] Lidocaine-Prilocaine Cream [Emla Cream 2.5%/2.5%] 1 applic TOPICAL DAILY 11/23/24 [History] Valsartan [Diovan] 320 mg PO DAILY 11/23/24 [History] Follow up Appointment(s)/Referral(s): Nonstaff,Physician [Primary Care Provider] - 1-2 days Patient Instructions/Handouts: Dyspnea (DC), End Stage Kidney Disease (DC) Activity/Diet/Wound Care/Special Instructions: renal diet activity is restricted till you see your doctor we recommend to call your health insurance provider to find a nearby primary care doctor, please call to make appointment in one week Discharge Disposition: HOME SELF-CARE
== END 2024-11-24 14:16 | disposition home or self-care (01) ==
LOC: EC 08:47 → 4SSUR 11:38
PROVIDERS: ADMIT Hospitalist; ATTEND Hospitalist
DX: I13.2 Hypertensive heart and chronic kidney disease with heart failure and with stage 5 chronic kidney disease, or end stage renal disease (principal); N18.6 End stage renal disease; I50.9 Heart failure, unspecified; E83.9 Disorder of mineral metabolism, unspecified; D63.1 Anemia in chronic kidney disease; I25.10 Atherosclerotic heart disease of native coronary artery without angina pectoris; R09.89 Other specified symptoms and signs involving the circulatory and respiratory systems; I16.0 Hypertensive urgency; Z99.2 Dependence on renal dialysis; Z79.899 Other long term (current) drug therapy; Z79.4 Long term (current) use of insulin; Z88.6 Allergy status to analgesic agent; Z88.1 Allergy status to other antibiotic agents; Z88.0 Allergy status to penicillin; Z88.8 Allergy status to other drugs, medicaments and biological substances; Z95.1 Presence of aortocoronary bypass graft
CPT/HCPCS: 99285; 36415; 93005; 83880; 80053; 84484; 85025; 85610; 85730; 71046; 74018; G0378 ×2; 90935

== ENCOUNTER 2024-12-08 04:04 | Observation (INO) | payer MEDICARE ==
--- NOTE | 2024-12-08 04:15 | ED ---
SOB HPI - General Stated Complaint: SOB Time Seen by Provider: 12/08/24 04:15 Source: RN notes reviewed, old records reviewed Mode of arrival: ambulatory Limitations: no limitations - History of Present Illness Initial Comments: This is an 79-year-old female who presents ER today for shortness of breath patient has history of chest pain history of shortness of breath history of heart disease history of CKD and history of fluid overload this feels like fluid overload state. Patient is complaining of especially exertional dyspnea shortness of breath mostly with activity better when she is resting. No current chest pain no recent fever cough or congestion no history of asthma or COPD MD Complaint: shortness of breath -: week(s), month(s) Severity: severe Severity scale (1-10): 8 Quality: dull Consistency: constant Improves With: nothing Worsens With: nothing Known History Of: congestive heart failure Context: recent URI, recent illness Associated Symptoms: denies other symptoms - Related Data Home Medications Medication Instructions Recorded Confirmed allopurinoL [Allopurinol] 100 mg PO DAILY 06/02/15 11/23/24 amLODIPine BESYLATE [Amlodipine 5 mg PO BID 06/02/15 11/23/24 Besylate] Insulin NPH Hum/Reg Insulin Hm 3 - 9 units SQ AC-BID PRN 02/28/24 11/23/24 [NovoLIN 70-30 Flexpen] Metoprolol Succinate (ER) [Toprol 100 mg PO BID 02/28/24 11/23/24 XL] hydrALAZINE HCL [Apresoline] 50 mg PO BID 02/28/24 11/23/24 ALPRAZolam [Xanax] 0.5 mg PO HS PRN 11/23/24 11/23/24 Atorvastatin [Lipitor] 80 mg PO DAILY 11/23/24 11/23/24 Lidocaine-Prilocaine Cream [Emla 1 applic TOPICAL DAILY 11/23/24 11/23/24 Cream 2.5%/2.5%] Valsartan [Diovan] 320 mg PO DAILY 11/23/24 11/23/24 Previous Rx's Medication Instructions Recorded Lactulose [Cephulac] 20 gm PO BID PRN #240 ml 03/05/24 Allergies Allergy/AdvReac Type Severity Reaction Status Date / Time ciprofloxacin [From Cipro] Allergy Vomiting Verified 12/08/24 04:19 ciprofloxacin HCl Allergy Vomiting Verified 12/08/24 04:19 [From Cipro] ibuprofen [From Motrin] Allergy Unknown Verified 12/08/24 04:19 metformin [From Glucophage] Allergy Unknown Verified 12/08/24 04:19 Penicillins Allergy Rash/Hives Verified 12/08/24 04:19 Review of Systems ROS Statement: Those systems with pertinent positive or pertinent negative responses have been documented in the HPI. ROS Other: All systems not noted in ROS Statement are negative. Past Medical History Past Medical History: Coronary Artery Disease (CAD), Diabetes Mellitus, Hypertension, Renal Disease Additional Past Medical History / Comment(s): arthritis, gout, stage 4 kidney disease, dialysis History of Any Multi-Drug Resistant Organisms: None Reported Past Surgical History: Bladder Surgery, Coronary Bypass/CABG, Hysterectomy, Orthopedic Surgery Past Psychological History: Depression Smoking Status: Never smoker Past Alcohol Use History: Occasional Past Drug Use History: None Reported General Exam General appearance: alert, in no apparent distress Head exam: Present: atraumatic, normocephalic, normal inspection Eye exam: Present: normal appearance, PERRL, EOMI. Absent: scleral icterus, conjunctival injection, periorbital swelling ENT exam: Present: normal exam, mucous membranes moist Neck exam: Present: normal inspection. Absent: tenderness, meningismus, lymphadenopathy Respiratory exam: Present: normal lung sounds bilaterally. Absent: respiratory distress, wheezes, rales, rhonchi, stridor Cardiovascular Exam: Present: regular rate, normal rhythm, normal heart sounds. Absent: systolic murmur, diastolic murmur, rubs, gallop, clicks GI/Abdominal exam: Present: soft, normal bowel sounds. Absent: distended, tenderness, guarding, rebound, rigid Extremities exam: Present: normal inspection, full ROM, normal capillary refill. Absent: tenderness, pedal edema, joint swelling, calf tenderness Back exam: Present: normal inspection Neurological exam: Present: alert, oriented X3, CN II-XII intact Psychiatric exam: Present: normal affect, normal mood Skin exam: Present: warm, dry, intact, normal color. Absent: rash Course Vital Signs 12/08/24 12/08/24 12/08/24 04:19 04:48 04:55 Temperature 97.4 F L Pulse Rate 67 68 70 Respiratory 17 Rate Blood Pressure 165/78 O2 Sat by Pulse 100 Oximetry 12/08/24 05:19 Temperature Pulse Rate 73 Respiratory 20 Rate Blood Pressure 174/76 O2 Sat by Pulse 98 Oximetry - Reevaluation(s) Reevaluation #1: 12/08/24 05:00 Records reviewed Reevaluation #2: 12/08/24 06:37 Patient remains shortness of breath here in the ER Reevaluation #3: 12/08/24 06:37 Patient informed of results questions answered Reevaluation #4: 12/08/24 05:00 Was pt. sent in by a medical professional or institution (, SUMEET, BARRELHEAD INSPECTOR, urgent care, hospital, or custodial...) When possible be specific @ -no Did you speak to anyone other than the patient for history (EMS, parent, family, police, friend...)? What history was obtained from this source @ -no Did you review nursing and triage notes (agree or disagree)? Why? @ -agree Are old charts reviewed (outside hosp., previous admission, EMS record, old EKG, old radiological studies, urgent care reports/EKG's, custodial records)? Report findings @ -yes Differential Diagnosis (chest pain, altered mental status, abdominal pain women, abdominal pain men, vaginal bleeding, weakness, fever, dyspnea, syncope, headache, dizziness, GI bleed, back pain, seizure, CVA, palpatations, mental health, musculoskeletal)? @ -prior EKG interpreted by me (3pts min.). @ -yes X-rays interpreted by me (1pt min.). @ -yes negative for acute disease CT interpreted by me (1pt min.). @ -no U/S interpreted by me (1pt. min.). @ -no What testing was considered but not performed or refused? (CT, X-rays, U/S, labs)? Why? @ -none What meds were considered but not given or refused? Why? @ -none Did you discuss the management of the patient with other professionals (professionals i.e. SUMEET Silva, BARRELHEAD INSPECTOR, lab, RT, psych nurse, manager social services, installation and repair technician, teacher, administrative officer, piano case and bench assembler)? Give summary @ -no Was smoking cessation discussed for >3mins.? @ -no Was critical care preformed (if so, how long)? @ -no Were there social determinants of health that impacted care today? How? (Homelessness, low income, unemployed, alcoholism, drug addiction, transportation, low edu. Level, literacy, decrease access to med. care, [facility], rehab)? @ -none Was there de-escalation of care discussed even if they declined (Discuss DNR or withdrawal of care, Hospice)? DNR status @ -no What co-morbidities impacted this encounter? (DM, HTN, Smoking, COPD, CAD, Cancer, CVA, ARF, Chemo, Hep., AIDS, mental health diagnosis, sleep apnea, morbid obesity)? @ -none Was patient admitted / discharged? Hospital course, mention meds given and route, prescriptions, significant lab abnormalities, going to OR and other pertinent info. @ - Undiagnosed new problem with uncertain prognosis? @ -no Drug Therapy requiring intensive monitoring for toxicity (Heparin, Nitro, Insulin, Cardizem)? @ -no Were any procedures done? @ -no Diagnosis/symptom? @ - Acute, or Chronic, or Acute on Chronic? @ -Acute Uncomplicated (without systemic symptoms) or Complicated (systemic symptoms)? @ -Complicated Side effects of treatment? @ -no Exacerbation, Progression, or Severe Exacerbation? @ -exacerbation Poses a threat to life or bodily function? How? (Chest pain, [place], [place], pneumonia, PE, COPD, DKA, ARF, appy, cholecystitis, CVA, Diverticulitis, Homicidal, Suicidal, threat to staff... and all critical care pts) @ -yes Reevaluation #5: Differential Dyspnea: Coronary syndrome, arrhythmia, tamponade, asthma, COPD, pulmonary embolism, pneumonia, pneumothorax, pulmonary effusion, anaphylaxis, diabetic ketoacidosis, flailed chest, pulmonary contusion, diaphragmatic rupture, anemia, neuromuscular, this is not meant to be an all-inclusive list. - Consultations Consultation #1: Spoke with [facility] who agrees to admit this patient Medical Decision Making - Medical Decision Making 79 female to ER for significant dyspnea, history of fluid overload in the past on dialysis history of heart disease coming in with persistent shortness of breath today. Chest x-ray is negative for significant effusion or fluid overload with CHF on x-ray mildly elevated troponin will trend, patient admitted for cardiac observation - Lab Data Result diagrams: 12/08/24 04:40 12/08/24 04:40 Lab Results 12/08/24 12/08/24 12/08/24 Range/Units 04:40 04:40 04:40 WBC 9.52 (4.50-10.00) 10*3/uL RBC 3.39 L (4.10-5.20) 10*6/uL Hgb 11.3 L (12.0-15.0) g/dL Hct 34.5 L (37.2-46.3) % MCV 101.8 H (80.0-97.0) fL MCH 33.3 H (27.0-32.0) pg MCHC 32.8 (32.0-37.0) g/dL Plt Count 208 (140-440) 10*3/uL MPV 9.3 L (9.5-12.2) fL Immature Gran % (Auto) 0.3 % Neutrophils % 66.8 % Lymphocytes % 20.0 % Monocytes % 9.9 % Eosinophils % 2.2 % Basophils % 0.8 % Immature Gran # 0.03 (0.00-0.04) 10*3/uL Neutrophils # 6.36 (1.80-7.70) 10*3/uL Lymphocytes # 1.90 (0.90-5.00) 10*3/uL Monocytes # 0.94 (0.20-1.00) 10*3/uL Eosinophils # 0.21 (0.04-0.35) 10*3/uL Basophils # 0.08 (0.00-0.10) 10*3/uL PT 10.8 (10.0-12.5) sec INR 1.0 (<1.2) APTT 22.3 (22.0-30.0) sec Sodium 135 L (137-145) mmol/L Potassium 4.4 (3.5-5.1) mmol/L Chloride 95 L (98-107) mmol/L Carbon Dioxide 24 (22-30) mmol/L Anion Gap 16 mmol/L BUN 27 H (7-17) mg/dL Creatinine 6.96 H (0.52-1.04) mg/dL Est GFR (CKD-EPI)AfAm 6 (>60 ml/min/1.73 sqM) Est GFR (CKD-EPI)NonAf 5 (>60 ml/min/1.73 sqM) Glucose 145 H (74-99) mg/dL Calcium 9.6 (8.4-10.2) mg/dL Total Bilirubin 0.6 (0.2-1.3) mg/dL AST 27 (14-36) U/L ALT 17 (4-34) U/L Alkaline Phosphatase 127 H (38-126) U/L Troponin I (0.000-0.034) ng/mL NT-Pro-B Natriuret Pep 81512 pg/mL Total Protein 7.0 (6.3-8.2) g/dL Albumin 4.6 (3.5-5.0) g/dL 12/08/24 Range/Units 04:40 WBC (4.50-10.00) 10*3/uL RBC (4.10-5.20) 10*6/uL Hgb (12.0-15.0) g/dL Hct (37.2-46.3) % MCV (80.0-97.0) fL MCH (27.0-32.0) pg MCHC (32.0-37.0) g/dL Plt Count (140-440) 10*3/uL MPV (9.5-12.2) fL Immature Gran % (Auto) % Neutrophils % % Lymphocytes % % Monocytes % % Eosinophils % % Basophils % % Immature Gran # (0.00-0.04) 10*3/uL Neutrophils # (1.80-7.70) 10*3/uL Lymphocytes # (0.90-5.00) 10*3/uL Monocytes # (0.20-1.00) 10*3/uL Eosinophils # (0.04-0.35) 10*3/uL Basophils # (0.00-0.10) 10*3/uL PT (10.0-12.5) sec INR (<1.2) APTT (22.0-30.0) sec Sodium (137-145) mmol/L Potassium (3.5-5.1) mmol/L Chloride (98-107) mmol/L Carbon Dioxide (22-30) mmol/L Anion Gap mmol/L BUN (7-17) mg/dL Creatinine (0.52-1.04) mg/dL Est GFR (CKD-EPI)AfAm (>60 ml/min/1.73 sqM) Est GFR (CKD-EPI)NonAf (>60 ml/min/1.73 sqM) Glucose (74-99) mg/dL Calcium (8.4-10.2) mg/dL Total Bilirubin (0.2-1.3) mg/dL AST (14-36) U/L ALT (4-34) U/L Alkaline Phosphatase (38-126) U/L Troponin I 0.027 (0.000-0.034) ng/mL NT-Pro-B Natriuret Pep pg/mL Total Protein (6.3-8.2) g/dL Albumin (3.5-5.0) g/dL - EKG Data -: EKG Interpreted by Me (EKG is sinus 68 ND 209 QRS 93 QTc 447) - Radiology Data Radiology results: report reviewed (Chest x-ray is negative for acute disease), image reviewed Disposition Clinical Impression: Congestive heart failure, Altered mental status, Dyspnea, Fluid overload Disposition: ADMITTED IP TO THIS HOSP Condition: Fair Is patient prescribed a controlled substance at d/c from ED?: No Referrals: Nonstaff,Physician [Primary Care Provider] - 1-2 days Time of Disposition: 06:30
[2024-12-08] MEDS: IPRATROPIUM-ALBUTEROL 3 ML NEB INHALATION STA (04:46)
[2024-12-08 04:57] LABS: Basophils # (A) 0.08 10*3/uL (0.00-0.10); Basophils % (A) 0.8 %; Eosinophils # (A) 0.21 10*3/uL (0.04-0.35); Eosinophils % (A) 2.2 %; HCT 34.5 % (37.2-46.3); HGB 11.3 g/dL (12.0-15.0); Lymphocytes # (A) 1.90 10*3/uL (0.90-5.00); Lymphocytes % (A) 20.0 %; MCH 33.3 pg (27.0-32.0); MCHC 32.8 g/dL (32.0-37.0); MCV 101.8 fL (80.0-97.0); Monocytes # (A) 0.94 10*3/uL (0.20-1.00); Monocytes % (A) 9.9 %; Neutrophils # (A) 6.36 10*3/uL (1.80-7.70); Neutrophils % (A) 66.8 %; Platelet Count 208 10*3/uL (140-440); RBC 3.39 10*6/uL (4.10-5.20); RDW 14.4 % (11.5-14.5); WBC 9.52 10*3/uL (4.50-10.00)
[2024-12-08 05:08] LABS: ALT 17 U/L (4-34); AST 27 U/L (14-36); African American GFR (CKD) 6 (>60 ml/min/1.73 sqM); Albumin 4.6 g/dL (3.5-5.0); Alkaline Phosphatase 127 U/L (38-126); Anion Gap 16 mmol/L; Blood Urea Nitrogen 27 mg/dL (7-17); Calcium 9.6 mg/dL (8.4-10.2); Carbon Dioxide 24 mmol/L (22-30); Chloride 95 mmol/L (98-107); Glucose 145 mg/dL (74-99); Non-African American GFR(CKD) 5 (>60 ml/min/1.73 sqM); Potassium 4.4 mmol/L (3.5-5.1); Sodium 135 mmol/L (137-145); Total Protein 7.0 g/dL (6.3-8.2)
[2024-12-08 05:59] LABS: NT-Pro-B-Type Natriuretic Pept 45900 pg/mL
[2024-12-08 06:15] LABS: INR 1.0 (<1.2); Partial Thromboplastin Time 22.3 sec (22.0-30.0); Prothrombin Time 10.8 sec (10.0-12.5)
[2024-12-08] MEDS ORDERED: ONDANSETRON 4 MG/2 ML VIAL IVP PRN (06:34)
[2024-12-08] MEDS ORDERED: NALOXONE 0.4 MG/ML 1 ML VIAL IV PRN (06:34)
[2024-12-08] MEDS ORDERED: MORPHINE SULFATE 4 MG/ML SYRINGE IV PRN (06:34)
--- NOTE | 2024-12-08 06:42 | XR ---
EXAMINATION TYPE: XR chest 1V portable DATE OF EXAM: 12/08/2024 COMPARISON: 11/15/2024 CLINICAL INDICATION: Female, 79 years old with history of sob; TECHNIQUE: Single frontal view of the chest is obtained. FINDINGS: There is mild cardiomegaly and prior CABG surgery. There is mild diffuse increased interstitial density are likely chronic interstitial change or mild v ascular congestion. There is no pleural effusion or pneumothorax. There is no airspace consolidation. IMPRESSION: Mild chronic interstitial change versus mild CHF [facility], , 12/08/2024 6:39 AM
[2024-12-08] MEDS ORDERED: LACTULOSE 20 GM/30 ML CUP PO PRN (12:18)
[2024-12-08] MEDS ORDERED: hydrALAZINE HCL 20 MG/ML 1 ML VIAL IVP PRN (12:18)
[2024-12-08] MEDS ORDERED: DEXTROSE 50% SYRINGE 50 ML IVP PRN ×2 (12:19)
--- NOTE | 2024-12-08 12:47 | P.NPCON ---
History of Present Illness - Reason for Consult Consult date: 12/08/24 - Chief Complaint SOB - History of Present Illness This is an 79-year-old female who presents ER today for shortness of breath. Patient is complaining of especially exertional dyspnea shortness of breath mostly with activity better when she is resting. No current chest pain no recent fever cough or congestion no history of asthma or COPD. She is dialysis dependent MWF and has been compliant with treatments. States she has history of CABG. Seen in ED, breathing stable at rest and no chest pressure or pain. No other complaints at this time. 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 Review of Systems Constitutional: Reports as per HPI Past Medical History Past Medical History: Coronary Artery Disease (CAD), Diabetes Mellitus, Hypertension, Renal Disease Additional Past Medical History / Comment(s): arthritis, gout, stage 4 kidney disease, dialysis History of Any Multi-Drug Resistant Organisms: None Reported Past Surgical History: Bladder Surgery, Coronary Bypass/CABG, Hysterectomy, Orthopedic Surgery Past Psychological History: Depression Smoking Status: Never smoker Past Alcohol Use History: Occasional Past Drug Use History: None Reported Medications and Allergies Home Medications Medication Instructions Recorded Confirmed Type allopurinoL [Allopurinol] 100 mg PO DAILY 06/02/15 12/08/24 History amLODIPine BESYLATE [Amlodipine 5 mg PO BID 06/02/15 12/08/24 History Besylate] Insulin NPH Hum/Reg Insulin Hm 3 - 9 units SQ AC-BID PRN 02/28/24 12/08/24 History [NovoLIN 70-30 Flexpen] hydrALAZINE HCL [Apresoline] 50 mg PO BID 02/28/24 12/08/24 History Lactulose [Cephulac] 20 gm PO BID PRN #240 ml 03/05/24 12/08/24 Rx ALPRAZolam [Xanax] 0.5 mg PO HS PRN 11/23/24 12/08/24 History Atorvastatin [Lipitor] 80 mg PO DAILY 11/23/24 12/08/24 History Lidocaine-Prilocaine Cream [Emla 1 applic TOPICAL DAILY 11/23/24 12/08/24 History Cream 2.5%/2.5%] Valsartan [Diovan] 320 mg PO DAILY 11/23/24 12/08/24 History carvediloL [Coreg] 12.5 mg PO BID 12/08/24 12/08/24 History Allergies Allergy/AdvReac Type Severity Reaction Status Date / Time ciprofloxacin [From Cipro] Allergy Vomiting Verified 12/08/24 12:00 ciprofloxacin HCl Allergy Vomiting Verified 12/08/24 12:00 [From Cipro] ibuprofen [From Motrin] Allergy Unknown Verified 12/08/24 12:00 metformin [From Glucophage] Allergy Unknown Verified 12/08/24 12:00 Penicillins Allergy Rash/Hives Verified 12/08/24 12:00 Physical Exam Vitals: Vital Signs Temp Pulse Resp BP Pulse Ox 12/08/24 08:19 63 22 180/85 99 12/08/24 06:57 65 19 183/88 98 12/08/24 05:19 73 20 174/76 98 12/08/24 04:55 70 12/08/24 04:48 68 12/08/24 04:19 97.4 F L 67 17 165/78 100 Intake and Output 12/07/24 12/08/24 12/08/24 22:59 06:59 14:59 Other: Weight 77.111 kg Results - Lab Results Most recent lab results Calcium 9.6 mg/dL (8.4-10.2) 12/08/24 04:40 12/08/24 04:40 12/08/24 04:40 Assessment and Plan Assessment: 1. End-stage renal disease on hemodialysis on Monday schedule via left arm AV fistula 2. Dyspnea without fluid overload 3. Hypertension partly volume sensitive, uncontrolled 4. CKD mineral bone disorder 5. Anemia with CKD Plan: Patient not fluid overload, HD in AM to maintain MWF schedule Continue current antihypertensive regimen. Further work-up per cardiology
[2024-12-08 13:00] LABS: Glucose,Whole Blood 199 mg/dL (70-110)
[2024-12-08] MEDS: INSULIN LISPRO (HumaLOG) 100 UNIT/ML 10 mL VL SQ SCH (13:00)
[2024-12-08] MEDS: amLODIPine 5 MG TAB PO SCH (13:02)
[2024-12-08] MEDS: ASPIRIN 81 MG PO SCH (13:02)
[2024-12-08] MEDS: ATORVASTATIN 40 MG TAB PO SCH (13:02)
--- NOTE | 2024-12-08 13:22 | P.CRDCN ---
History of Present Illness Consult date: 12/08/24 History of present illness: HISTORY OF PRESENTING ILLNESS: 79-year-old female with past medical history of CAD status post CABG 14 years ago, end-stage renal disease on hemodialysis Monday, compliant with dialysis. 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 Recently she moved to [facility]. This time she presented to the hospital because of increased worsening shortness of breath, some chest heaviness. On admission BP was 183/88, heart rate 65 bpm admission labs showed hemoglobin of 11.3, BUN of 27, creatinine of 6.9, troponins were not elevated repeated twice NT-proBNP was 45,000 Admission ECG showed sinus rhythm with nonspecific ST changes, left axis deviation with poor R wave progression Chest x-ray shows mild increased interstitial marking cystoscopy mild increased pulmonary congestion. ......... ................................................................................ ..................................................... REVIEW OF SYSTEMS: 14 point review of system is negative except what is mentioned above in HPI. ...................................................................... ........................................................................ PHYSICAL EXAMINATION: Neck: Brisk carotid upstroke, no jugular venous distention. Lungs: Mild crackles, no wheezing Heart: Regular rate and rhythm, S1-S2, , no murmur or rub. Abdomen: Soft nontender, positive bowel sounds. Extremities: 1-2+ pitting edema bilateral extremity with mild chronic skin changes cyst of chronic venous disease. Neuro: Alert, oritented, no focal deficits. Detailed neuro exam was not performed. ..... ................................................................................ ......................................................... ASSESSMENT: # Mild HFpEF exacerbation # ESRD on hemodialysis # Essential hypertension, poorly controlled likely from fluid overload # CAD status post CABG PLAN: Continue aspirin, Lipitor 40 Continue amlodipine 5 mg daily, continue valsartan 160 mg twice daily She is on Coreg 12.5 mg twice daily. Will resume Nephrology consult for hemodialysis recommendations Obtain updated echocardiogram TSH HbA1c lipid panel Ramirez Butler MD, [facility] Past Medical History Past Medical History: Coronary Artery Disease (CAD), Diabetes Mellitus, Hypertension, Renal Disease Additional Past Medical History / Comment(s): arthritis, gout, stage 4 kidney disease, dialysis History of Any Multi-Drug Resistant Organisms: None Reported Past Surgical History: Bladder Surgery, Coronary Bypass/CABG, Hysterectomy, Orthopedic Surgery Past Psychological History: Depression Smoking Status: Never smoker Past Alcohol Use History: Occasional Past Drug Use History: None Reported Medications and Allergies Home Medications Medication Instructions Recorded Confirmed Type allopurinoL [Allopurinol] 100 mg PO DAILY 06/02/15 12/08/24 History amLODIPine BESYLATE [Amlodipine 5 mg PO BID 06/02/15 12/08/24 History Besylate] Insulin NPH Hum/Reg Insulin Hm 3 - 9 units SQ AC-BID PRN 02/28/24 12/08/24 History [NovoLIN 70-30 Flexpen] hydrALAZINE HCL [Apresoline] 50 mg PO BID 02/28/24 12/08/24 History Lactulose [Cephulac] 20 gm PO BID PRN #240 ml 03/05/24 12/08/24 Rx ALPRAZolam [Xanax] 0.5 mg PO HS PRN 11/23/24 12/08/24 History Atorvastatin [Lipitor] 80 mg PO DAILY 11/23/24 12/08/24 History Lidocaine-Prilocaine Cream [Emla 1 applic TOPICAL DAILY 11/23/24 12/08/24 History Cream 2.5%/2.5%] Valsartan [Diovan] 320 mg PO DAILY 11/23/24 12/08/24 History carvediloL [Coreg] 12.5 mg PO BID 12/08/24 12/08/24 History Allergies Allergy/AdvReac Type Severity Reaction Status Date / Time ciprofloxacin [From Cipro] Allergy Vomiting Verified 12/08/24 12:00 ciprofloxacin HCl Allergy Vomiting Verified 12/08/24 12:00 [From Cipro] ibuprofen [From Motrin] Allergy Unknown Verified 12/08/24 12:00 metformin [From Glucophage] Allergy Unknown Verified 12/08/24 12:00 Penicillins Allergy Rash/Hives Verified 12/08/24 12:00 Physical Exam Vitals: Vital Signs Temp Pulse Resp BP Pulse Ox 12/08/24 13:05 66 14 166/70 99 12/08/24 11:09 57 L 16 185/83 12/08/24 08:19 63 22 180/85 99 12/08/24 06:57 65 19 183/88 98 12/08/24 05:19 73 20 174/76 98 12/08/24 04:55 70 12/08/24 04:48 68 12/08/24 04:19 97.4 F L 67 17 165/78 100 Intake and Output 12/07/24 12/08/24 12/08/24 22:59 06:59 14:59 Other: Weight 77.111 kg Results 12/08/24 04:40 12/08/24 04:40 Cardiac Enzymes 12/08/24 12/08/24 12/08/24 Range/Units 04:40 04:40 08:34 AST 27 (14-36) U/L Troponin I 0.027 0.024 (0.000-0.034) ng/mL Coagulation 12/08/24 Range/Units 04:40 PT 10.8 (10.0-12.5) sec APTT 22.3 (22.0-30.0) sec CBC 12/08/24 Range/Units 04:40 WBC 9.52 (4.50-10.00) 10*3/uL RBC 3.39 L (4.10-5.20) 10*6/uL Hgb 11.3 L (12.0-15.0) g/dL Hct 34.5 L (37.2-46.3) % Plt Count 208 (140-440) 10*3/uL Comprehensive Metabolic Panel 12/08/24 Range/Units 04:40 Sodium 135 L (137-145) mmol/L Potassium 4.4 (3.5-5.1) mmol/L Chloride 95 L (98-107) mmol/L Carbon Dioxide 24 (22-30) mmol/L BUN 27 H (7-17) mg/dL Creatinine 6.96 H (0.52-1.04) mg/dL Glucose 145 H (74-99) mg/dL Calcium 9.6 (8.4-10.2) mg/dL AST 27 (14-36) U/L ALT 17 (4-34) U/L Alkaline Phosphatase 127 H (38-126) U/L Total Protein 7.0 (6.3-8.2) g/dL Albumin 4.6 (3.5-5.0) g/dL Current Medications Generic Name Dose Route Start Last Admin Trade Name Freq PRN Reason Stop Dose Admin Allopurinol 100 mg 12/09/24 09:00 Allopurinol 100 Mg Tab PO DAILY TIM Alprazolam 0.5 mg 12/08/24 12:16 Alprazolam 0.5 Mg Tab PO HS PRN Insomnia Amlodipine Besylate 5 mg 12/08/24 12:15 12/08/24 13:02 Amlodipine 5 Mg Tab PO 5 mg DAILY TIM Administration Aspirin 81 mg 12/08/24 12:00 12/08/24 13:02 Aspirin 81 Mg PO 81 mg DAILY TIM Administration Atorvastatin Calcium 40 mg 12/08/24 12:15 12/08/24 13:02 Atorvastatin 40 Mg Tab PO 40 mg DAILY TIM Administration Dextrose/Water 25 ml 12/08/24 12:19 Dextrose 50% Syringe 50 Ml IVP PER PROTOCOL PRN Hypoglycemia Protocol Dextrose/Water 50 ml 12/08/24 12:19 Dextrose 50% Syringe 50 Ml IVP PER PROTOCOL PRN Hypoglycemia Protocol Hydralazine HCl 10 mg 12/08/24 12:18 Hydralazine Hcl 20 Mg/Ml 1 Ml Vial IVP Q6HR PRN Blood Pressure - High Insulin Human Lispro 0 unit 12/08/24 12:30 12/08/24 13:00 Insulin Lispro (Humalog) 100 Unit/Ml 10 Ml Vl SQ 2 unit ACHS TIM Administration Protocol Lactulose 20 gm 12/08/24 12:18 Lactulose 20 Gm/30 Ml Cup PO BID PRN Constipation Morphine Sulfate 4 mg 12/08/24 06:34 Morphine Sulfate 4 Mg/Ml Syringe IV Q4HR PRN Severe Pain (Scale 7 to 10) Naloxone HCl 0.2 mg 12/08/24 06:34 Naloxone 0.4 Mg/Ml 1 Ml Vial IV Q2M PRN Opioid Reversal Ondansetron HCl 4 mg 12/08/24 06:34 Ondansetron 4 Mg/2 Ml Vial IVP Q8HR PRN Nausea And Vomiting Valsartan 160 mg 12/08/24 12:15 Valsartan 160 Mg Tab PO BID TIM Intake and Output 12/07/24 12/08/24 12/08/24 22:59 06:59 14:59 Other: Weight 77.111 kg 12/08/24 04:40 12/08/24 04:40
--- NOTE | 2024-12-08 15:17 | P.HPIM ---
History of Present Illness H&P Date: 12/08/24 History of present illness; patient 79-year-old lady with past medical history significant for end-stage renal disease on dialysis, heart failure, hypertension presented to ER because of shortness of breath for 2 days. Patient has been admitted multiple in the past with similar complaints at which times she gets dialyzed and gets better and is discharged. Patient was last evaluated last week in the hospital and was seen by nephrology as well. Patient stated she was all right a day back in started having shortness of breath. Shortness of breath was present at rest as on exertion. Patient denies any chest pain.patient denies any palpitation. There is no complaint of orthopnea or PND. Denies any nausea, vomiting abdominal pain. Patient denies any complaint of dizziness. There is no complaint of headache. Because of this shortness of breath, patient came to the ER Initial lab work done in the ER showed WBC 9.52, hemoglobin 9.3, platelet count 2 0, sodium 1. Abnormal diazine 4.4, BUN 27, creatinine 0.96 glucose 145, alk phos 127, troponin 0.027, proBNP 60809 EKG done in the ER showed heart rate of 68, no ST segment elevation or depression seen, no T-wave inversions seen. Chest x-ray done in the ER showed mild chronic interstitial changes versus mild CHF Patient admitted to internal medicine service REVIEW OF SYSTEMS: CONSTITUTIONAL: No fever, no malaise, no fatigue. HEENT: No recent visual problems or hearing problems. Denied any sore throat. CARDIOVASCULAR: As mentioned above . PULMONARY: As mentioned above GASTROINTESTINAL: No diarrhea, no nausea, no vomiting, no abdominal pain. NEUROLOGICAL: No headaches, no weakness, no numbness. HEMATOLOGICAL: Denies any bleeding or petechiae. GENITOURINARY: Denies any burning micturition, frequency, or urgency. MUSCULOSKELETAL/RHEUMATOLOGICAL: Denies any joint pain, swelling, or any muscle pain. ENDOCRINE: Denies any polyuria or polydipsia. The rest of the 14-point review of systems is negative. PHYSICAL EXAMINATION: GENERAL: The patient is alert and oriented x3, not in any acute distress. Well developed, well nourished. HEENT: Pupils are round and equally reacting to light. EOMI. No scleral icterus. No conjunctival pallor. Normocephalic, atraumatic. No pharyngeal erythema. No thyromegaly. CARDIOVASCULAR: S1 and S2 present. No murmurs, rubs, or gallops. PULMONARY: Chest is clear to auscultation, no wheezing or crackles. ABDOMEN: Soft, nontender, nondistended, normoactive bowel sounds. No palpable organomegaly. MUSCULOSKELETAL: No joint swelling or deformity. EXTREMITIES: No cyanosis, clubbing, or pedal edema. NEUROLOGICAL: Gross neurological examination did not reveal any focal deficits. SKIN: No rashes. Assessment and plan Fluid overload End-stage renal disease on hemodialysis Chronic anemia of chronic disease Hypertension with urgency Monitor vital signs Monitor CBC Monitor CMP Continue telemetry monitoring Trend troponin Ordered aspirin, Lipitor Ordered Norvasc Ordered Lipitor Nephrology consulted for maintenance dialysis Cardiology consulted Labs and medication were reviewed.. Continue same treatment. Continue with symptomatic treatment. Resume home medication. Monitor labs and vitals. DVT and GI prophylaxis. Further recommendations as per clinical course of the patient Dictation was produced using [employer] dictation software. please excuse any grammatical, word or spelling errors. Past Medical History Past Medical History: Coronary Artery Disease (CAD), Diabetes Mellitus, Hypertension, Renal Disease Additional Past Medical History / Comment(s): arthritis, gout, stage 4 kidney disease, dialysis History of Any Multi-Drug Resistant Organisms: None Reported Past Surgical History: Bladder Surgery, Coronary Bypass/CABG, Hysterectomy, Orth opedic Surgery Past Psychological History: Depression Smoking Status: Never smoker Past Alcohol Use History: Occasional Past Drug Use History: None Reported Medications and Allergies Home Medications Medication Instructions Recorded Confirmed Type allopurinoL [Allopurinol] 100 mg PO DAILY 06/02/15 12/08/24 History amLODIPine BESYLATE [Amlodipine 5 mg PO BID 06/02/15 12/08/24 History Besylate] Insulin NPH Hum/Reg Insulin Hm 3 - 9 units SQ AC-BID PRN 02/28/24 12/08/24 History [NovoLIN 70-30 Flexpen] hydrALAZINE HCL [Apresoline] 50 mg PO BID 02/28/24 12/08/24 History Lactulose [Cephulac] 20 gm PO BID PRN #240 ml 03/05/24 12/08/24 Rx ALPRAZolam [Xanax] 0.5 mg PO HS PRN 11/23/24 12/08/24 History Atorvastatin [Lipitor] 80 mg PO DAILY 11/23/24 12/08/24 History Lidocaine-Prilocaine Cream [Emla 1 applic TOPICAL DAILY 11/23/24 12/08/24 History Cream 2.5%/2.5%] Valsartan [Diovan] 320 mg PO DAILY 11/23/24 12/08/24 History carvediloL [Coreg] 12.5 mg PO BID 12/08/24 12/08/24 History Allergies Allergy/AdvReac Type Severity Reaction Status Date / Time ciprofloxacin [From Cipro] Allergy Vomiting Verified 12/08/24 12:00 ciprofloxacin HCl Allergy Vomiting Verified 12/08/24 12:00 [From Cipro] ibuprofen [From Motrin] Allergy Unknown Verified 12/08/24 12:00 metformin [From Glucophage] Allergy Unknown Verified 12/08/24 12:00 Penicillins Allergy Rash/Hives Verified 12/08/24 12:00 Physical Exam Vitals: Vital Signs Temp Pulse Resp BP Pulse Ox 12/08/24 11:09 57 L 16 185/83 12/08/24 08:19 63 22 180/85 99 12/08/24 06:57 65 19 183/88 98 12/08/24 05:19 73 20 174/76 98 12/08/24 04:55 70 12/08/24 04:48 68 12/08/24 04:19 97.4 F L 67 17 165/78 100 Intake and Output 12/07/24 12/08/24 12/08/24 22:59 06:59 14:59 Other: Weight 77.111 kg Results CBC & Chem 7: 12/08/24 04:40 12/08/24 04:40 Labs: Abnormal Lab Results - Last 24 Hours (Table) 12/08/24 12/08/24 Range/Units 04:40 04:40 RBC 3.39 L (4.10-5.20) 10*6/uL Hgb 11.3 L (12.0-15.0) g/dL Hct 34.5 L (37.2-46.3) % MCV 101.8 H (80.0-97.0) fL MCH 33.3 H (27.0-32.0) pg MPV 9.3 L (9.5-12.2) fL Sodium 135 L (137-145) mmol/L Chloride 95 L (98-107) mmol/L BUN 27 H (7-17) mg/dL Creatinine 6.96 H (0.52-1.04) mg/dL Glucose 145 H (74-99) mg/dL Alkaline Phosphatase 127 H (38-126) U/L
[2024-12-08 17:12] LABS: Glucose,Whole Blood 109 mg/dL (70-110)
[2024-12-08] MEDS: VALSARTAN 160 MG TAB PO SCH (18:54)
[2024-12-08 19:56] LABS: Glucose,Whole Blood 212 mg/dL (70-110)
[2024-12-08] MEDS: ALPRAZolam 0.5 MG TAB PO PRN (20:28)
[2024-12-09 00:10] LABS: Cholesterol 136.00 mg/dL (0.00-200.00); HDL Cholesterol 42.40 mg/dL (40.00-60.00); LDL Cholesterol,Calculated 65.4 mg/dL (0.0-131.0); Triglycerides 141.00 mg/dL (0.00-149.00); VLDL Calculation 28.20 mg/dL (5.00-40.00)
[2024-12-09 02:20] LABS: Glucose,Whole Blood 106 mg/dL (70-110)
[2024-12-09 05:37] LABS: Glucose,Whole Blood 159 mg/dL (70-110)
--- NOTE | 2024-12-09 08:27 | P.PN ---
Subjective Patient is seen in follow-up for end-stage renal disease. She is maintained on hemodialysis on Monday schedule. Denies chest pain or shortness of breath. Has a dry cough. Vital signs are stable. General: No acute distress. HEENT: Head exam is unremarkable. LUNGS: No audible rhonchi or wheezes. HEART: Rate and Rhythm are regular. ABDOMEN: Nontender. EXTREMITITES: No edema. Objective - Vital Signs Vital signs: Vital Signs Temp 97.7 F 12/09/24 07:00 Pulse 62 12/09/24 07:00 Resp 16 12/09/24 07:00 BP 164/78 12/09/24 07:00 Pulse Ox 97 12/09/24 07:00 FiO2 Intake & Output 12/08/24 12/09/24 12/09/24 18:59 06:59 18:59 Intake Total 1182 Balance 1182 Weight 72.5 kg 72.8 kg Intake: Oral 1182 Other: # Voids 1 - Labs CBC & Chem 7: 12/08/24 04:40 12/08/24 04:40 Labs: Abnormal Lab Results - Last 24 Hours (Table) 12/08/24 12/08/24 12/08/24 Range/Units 04:40 12:58 19:54 POC Glucose (mg/dL) 199 H 212 H (70-110) mg/dL Hemoglobin A1c 6.2 H (<=6.0) % 12/09/24 Range/Units 05:35 POC Glucose (mg/dL) 159 H (70-110) mg/dL Hemoglobin A1c (<=6.0) % Assessment and Plan Plan: Assessment: 1. End-stage renal disease maintained on hemodialysis on Monday schedule. 2. Hypertension with chronic kidney disease. 3. Acute on chronic diastolic CHF. 4. Coronary disease status post CABG. Plan: Hemodialysis today. Challenge UF. Amlodipine dose increased to 10 mg. Maintain low-salt diet.
[2024-12-09] MEDS: amLODIPine 10 MG TAB PO SCH (08:34)
[2024-12-09] MEDS ORDERED: ATORVASTATIN 80 MG TAB PO SCH (09:00)
[2024-12-09 12:24] LABS: Glucose,Whole Blood 210 mg/dL (70-110)
--- NOTE | 2024-12-09 12:49 | P.PN ---
Subjective HISTORY OF PRESENT ILLNESS: 79-year-old female with past medical history of CAD status post CABG 14 years ago, end-stage renal disease on hemodialysis Monday, compliant with dialysis. 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 Recently she moved to [facility]. This time she presented to the hospital because of increased worsening shortness of breath, some chest heaviness. On admission BP was 183/88, heart rate 65 bpm admission labs showed hemoglobin of 11.3, BUN of 27, creatinine of 6.9, troponins were not elevated repeated twice NT-proBNP was 45,000 Admission ECG showed sinus rhythm with nonspecific ST changes, left axis deviation with poor R wave progression Chest x-ray shows mild increased interstitial marking cystoscopy mild increased pulmonary congestion. 12/09/2024 Patient examined this morning at bedside. Patient currently denies any chest pain or pressure. She denies any shortness of breath. She is scheduled to undergo hemodialysis today. She reports that she makes very little urine and only urinates once or twice a day. Blood pressure is elevated with a systolic in the 160s. PHYSICAL EXAM: VITAL SIGNS: Reviewed. GENERAL: Well-developed in no acute distress. NECK: Supple. No JVD or thyromegaly LUNGS: Respirations even and unlabored. Lungs essentially clear to auscultation bilaterally. HEART: Regular rate and rhythm. S1 and S2 heard. EXTREMITIES: Normal range of motion. No clubbing or cyanosis. Peripheral pulses intact. Mild bilateral lower extremity edema ASSESSMENT: Shortness of breath Acute on chronic heart failure with preserved EF End-stage renal disease on hemodialysis Hypertension, poorly controlled Coronary artery disease with previous CABG PLAN: 2D echo ordered. Await results. Patient's carvedilol was decreased to 6.25 mg twice a day secondary to bradycardia yesterday Blood pressures remain uncontrolled Increase amlodipine to 10 mg daily Patient also taking hydralazine at home. Resume home dose of hydralazine 50 mg twice daily Continue to monitor blood pressure Dialysis per nephrology Further recommendations pending patient course Nurse practitioner note has been reviewed by physician. Signing provider agrees with the documented findings, assessment, and plan of care documented by PANELBEATER as a scribe. Objective - Vital Signs Vital signs: Vital Signs Temp 97.7 F 12/09/24 07:00 Pulse 62 12/09/24 07:00 Resp 16 12/09/24 07:00 BP 164/78 12/09/24 07:00 Pulse Ox 97 12/09/24 07:00 FiO2 Intake & Output 12/08/24 12/09/24 12/09/24 18:59 06:59 18:59 Intake Total 1182 Balance 1182 Weight 72.5 kg 72.8 kg Intake: Oral 1182 Other: Voiding Method Toilet # Voids 1 - Labs CBC & Chem 7: 12/08/24 04:40 12/08/24 04:40 Labs: Abnormal Lab Results - Last 24 Hours (Table) 12/08/24 12/08/24 12/08/24 Range/Units 04:40 12:58 19:54 POC Glucose (mg/dL) 199 H 212 H (70-110) mg/dL Hemoglobin A1c 6.2 H (<=6.0) % 12/09/24 12/09/24 Range/Units 05:35 12:15 POC Glucose (mg/dL) 159 H 210 H (70-110) mg/dL Hemoglobin A1c (<=6.0) %
--- NOTE | 2024-12-09 13:01 | CA ---
Transthoracic Echo Report Name: Delia Lobo Age: 79 Gender: F : 1945 Exam Date: 12/09/2024 08:11 Exam Location: [facility] Ht (in): 63 Wt (lb): 170 Ordering Physician: Ramirez Butler MD ([id number]) Attending/Referring Phys: Intelligence Support Officer Mary Love RDCS Procedure CPT: Indications: SHORTNESS OF BREATH Cardiac Hx: Technical Quality: Good Contrast 1: Total Dose (mL): Contrast 2: Total Dose (mL): MEASUREMENTS (Male / Female) Normal Values 2D ECHO LV Diastolic Diameter PLAX 4.6 cm 4.2 - 5.9 / 3.9 - 5.3 cm LV Systolic Diameter PLAX 3.1 cm IVS Diastolic Thickness 1.4 cm 0.6 - 1.0 / 0.6 - 0.9 cm LVPW Diastolic Thickness 1.1 cm 0.6 - 1.0 / 0.6 - 0.9 cm LV Relative Wall Thickness 0.5 RV Internal Dim ED PLAX 2.7 cm LVOT Diameter 1.8 cm LA Systolic Diameter LX 4.3 cm 3.0 - 4.0 / 2.7 - 3.8 cm LV Diastolic Volume MOD BP 88.3 cm??? 67 - 155 / 56 - 104 cm??? LV Systolic Volume MOD BP 31.1 cm??? 22 - 58 / 19 - 49 cm??? LV Ejection Fraction MOD BP 64.8 % >= 55 % LV Cardiac Index MOD BP 1948.6 cm???/min???m??? LV Diastolic Volume MOD 4C 85.6 cm??? LV Systolic Volume MOD 4C 38.1 cm??? LV Ejection Fraction MOD 4C 55.5 % LV Cardiac Index MOD 4C 1617.6 cm???/min???m??? LV Diastolic Length 4C 7.4 cm LV Systolic Length 4C 6.4 cm LV Diastolic Volume MOD 2C 88.6 cm??? LV Systolic Volume MOD 2C 23.6 cm??? LV Ejection Fraction MOD 2C 73.3 % LV Cardiac Index MOD 2C 2213.9 cm???/min???m??? LV Diastolic Length 2C 7.1 cm LV Systolic Length 2C 5.9 cm M-MODE Aortic Root Diameter MM 2.8 cm LA Systolic Diameter MM 4.7 cm LA Ao Ratio MM 1.6 AV Cusp Separation MM 1.7 cm DOPPLER Mitral E Point Velocity 113.9 cm/s Mitral A Point Velocity 61.6 cm/s Mitral E to A Ratio 1.8 MV Deceleration Time 230.9 ms TR Peak Velocity 325.3 cm/s TR Peak Gradient 42.3 mmHg Right Ventricular Systolic Press 47.6 mmHg FINDINGS Left Ventricle Left ventricular ejection fraction is estimated at 60-65%. Moderately increased septal wall thickness. Mildly increased posterior wall thickness. Normal left ventricular systolic function with no obvious regional wall motion abnormalities. Left ventricular cavity size normal. Right Ventricle Normal right ventricular size and function. Moderate pulmonary hypertension. Right Atrium Normal right atrial size. Left Atrium Moderately increased left atrial diameter. Mitral Valve Mitral valve thickened. Mitral annular calcification. [id number] mitral regurgitation. Aortic Valve Trileaflet aortic valve. No aortic stenosis. No aortic regurgitation. Diffuse thickening (sclerosis) of the aortic valve cusps without reduced excursion. Tricuspid Valve Structurally normal tricuspid valve. Moderate tricuspid regurgitation. No tricuspid stenosis. Pulmonic Valve Structurally normal pulmonic valve. No pulmonic stenosis. Trace pulmonic regurgitation. Pericardium No pericardial or pleural effusion. Aorta Normal size aortic root and proximal ascending aorta. CONCLUSIONS Normal LV systolic function Mild to moderate MR Aortic sclerosis with no stenosis or insufficiency Moderate pulmonary hypertension Moderate TR Previewed by: Dr. Jac Tomas MD (Electronically Signed) Final Date: 09 December 2024 13:01
[2024-12-09] MEDS: LIDOCAINE 4% CREAM 5 GM TUBE TOPICAL ONE (13:20)
--- NOTE | 2024-12-09 14:24 | P.PN ---
Subjective Progress Note Date: 12/09/24 79-year-old lady with past medical history significant for end-stage renal disease on dialysis, heart failure, hypertension presented to ER because of shortness of breath for 2 days. Patient has been admitted multiple in the past with similar complaints at which times she gets dialyzed and gets better and is discharged. Patient was last evaluated last week in the hospital and was seen by nephrology as well. Patient stated she was all right a day back in started having shortness of breath. Shortness of breath was present at rest as on exertion. Patient denies any chest pain.patient denies any palpitation. There is no complaint of orthopnea or PND. Denies any nausea, vomiting abdominal pain. Patient denies any complaint of dizziness. There is no complaint of headache. Because of this shortness of breath, patient came to the ER Initial lab work done in the ER showed WBC 9.52, hemoglobin 9.3, platelet count 2 0, sodium 1. Abnormal diazine 4.4, BUN 27, creatinine 0.96 glucose 145, alk phos 127, troponin 0.027, proBNP 36920 EKG done in the ER showed heart rate of 68, no ST segment elevation or depression seen, no T-wave inversions seen. Chest x-ray done in the ER showed mild chronic interstitial changes versus mild CHF Patient admitted to internal medicine service 12/09. Patient seen examined. States she feels better. Shortness of breath is improved REVIEW OF SYSTEMS: CONSTITUTIONAL: No fever, no malaise,. CARDIOVASCULAR: No chest pain, no palpitations, no syncope. PULMONARY: No shortness of breath, no cough, GASTROINTESTINAL: No diarrhea, no nausea, no vomiting, no abdominal pain. NEUROLOGICAL: No headaches, no weakness, PHYSICAL EXAMINATION: GENERAL: The patient is alert and oriented x3, not in any acute distress. Well developed, well nourished. HEENT: Pupils are round and equally reacting to light. EOMI. No scleral icterus. No conjunctival pallor. Normocephalic, atraumatic. No pharyngeal erythema. No thyromegaly. CARDIOVASCULAR: S1 and S2 present. No murmurs, rubs, or gallops. PULMONARY: Chest is clear to auscultation, no wheezing or crackles. ABDOMEN: Soft, nontender, nondistended, normoactive bowel sounds. No palpable organomegaly. MUSCULOSKELETAL: No joint swelling or deformity. EXTREMITIES: No cyanosis, clubbing, or pedal edema. NEUROLOGICAL: Gross neurological examination did not reveal any focal deficits. SKIN: No rashes. Assessment and plan Fluid overload End-stage renal disease on hemodialysis Chronic anemia of chronic disease Hypertension with urgency Monitor vital signs Monitor CBC Monitor CMP Continue telemetry monitoring Trend troponin Continue aspirin, Lipitor Continue Norvasc Resume hydralazine, dose of Coreg was decreased to 6.25 mg Nephrology consulted for maintenance dialysis Cardiology following, ordered 2D echo, if no changes in echo, possible discharge Labs and medication were reviewed.. Continue same treatment. Continue with symptomatic treatment. Resume home medication. Monitor labs and vitals. DVT and GI prophylaxis. Further recommendations as per clinical course of the patient Dictation was produced using [employer] dictation software. please excuse any grammatical, word or spelling errors. Objective - Vital Signs Vital signs: Vital Signs Temp 97.7 F 12/09/24 07:00 Pulse 62 12/09/24 07:00 Resp 16 12/09/24 07:00 BP 164/78 12/09/24 07:00 Pulse Ox 97 12/09/24 07:00 FiO2 Intake & Output 12/08/24 12/09/24 12/09/24 18:59 06:59 18:59 Intake Total 1182 Balance 1182 Weight 72.5 kg 72.8 kg Intake: Oral 1182 Other: Voiding Method Toilet # Voids 1 - Labs CBC & Chem 7: 12/08/24 04:40 12/08/24 04:40 Labs: Abnormal Lab Results - Last 24 Hours (Table) 12/08/24 12/08/24 12/09/24 Range/Units 04:40 19:54 05:35 POC Glucose (mg/dL) 212 H 159 H (70-110) mg/dL Hemoglobin A1c 6.2 H (<=6.0) % 12/09/24 Range/Units 12:15 POC Glucose (mg/dL) 210 H (70-110) mg/dL Hemoglobin A1c (<=6.0) %
[2024-12-09 17:15] LABS: Glucose,Whole Blood 92 mg/dL (70-110)
[2024-12-09 20:41] LABS: Glucose,Whole Blood 242 mg/dL (70-110)
[2024-12-10 06:29] LABS: Glucose,Whole Blood 115 mg/dL (70-110)
[2024-12-10 07:27] VITALS: BP 148/79; PULSE 76; RESP 16; TEMP 98
--- NOTE | 2024-12-10 10:16 | P.DS ---
Providers Date of admission: 12/08/24 06:35 Expected date of discharge: 12/10/24 Attending physician: Veronica Fraire Consults: 12/08/24 06:34 Consult Physician Routine Consulting Provider: Jesse Jimenez Consult Reason/Comments: chf Do you want consulting provider notified?: Yes 12/08/24 06:35 Consult Physician Routine Consulting Provider: Campos Voss Consult Reason/Comments: CKD Do you want consulting provider notified?: Yes Primary care physician: Physician Nonstaff Hospital Course: Discharge diagnoses; Fluid overload End-stage renal disease on hemodialysis Chronic anemia of chronic disease Hypertension with urgency Hospital course; 79-year-old lady with past medical history significant for end-stage renal disease on dialysis, heart failure, hypertension presented to ER because of shortness of breath for 2 days. Patient has been admitted multiple in the past with similar complaints at which times she gets dialyzed and gets better and is discharged. Patient was last evaluated last week in the hospital and was seen by nephrology as well. Patient stated she was all right a day back in started having shortness of breath. Shortness of breath was present at rest as on exertion. Patient denies any chest pain.patient denies any palpitation. There is no complaint of orthopnea or PND. Denies any nausea, vomiting abdominal pain. Patient denies any complaint of dizziness. There is no complaint of headache. Because of this shortness of breath, patient came to the ER Initial lab work done in the ER showed WBC 9.52, hemoglobin 9.3, platelet count 2 0, sodium 1. Abnormal diazine 4.4, BUN 27, creatinine 0.96 glucose 145, alk phos 127, troponin 0.027, proBNP 53564 EKG done in the ER showed heart rate of 68, no ST segment elevation or depressio n seen, no T-wave inversions seen. Chest x-ray done in the ER showed mild chronic interstitial changes versus mild CHF Patient admitted to internal medicine service 12/09. Patient seen examined. States she feels better. Shortness of breath is improved. Cardiology evaluated, decrease the dose of Coreg to 6.25 mL twice daily, recommend keep patient on hydralazine, Norvasc and valsartan. 2D echo done showed normal LV function, mild to moderate MR. Cardiology cleared the patient for discharge PHYSICAL EXAMINATION: GENERAL: The patient is alert and oriented x3, not in any acute distress. Well developed, well nourished. HEENT: Pupils are round and equally reacting to light. EOMI. No scleral icterus. No conjunctival pallor. Normocephalic, atraumatic. No pharyngeal erythema. No thyromegaly. CARDIOVASCULAR: S1 and S2 present. No murmurs, rubs, or gallops. PULMONARY: Chest is clear to auscultation, no wheezing or crackles. ABDOMEN: Soft, nontender, nondistended, normoactive bowel sounds. No palpable organomegaly. MUSCULOSKELETAL: No joint swelling or deformity. EXTREMITIES: No cyanosis, clubbing, or pedal edema. NEUROLOGICAL: Gross neurological examination did not reveal any focal deficits. SKIN: No rashes. Dictation was produced using [employer] dictation software. please excuse any grammatical, word or spelling errors. Patient Condition at Discharge: Fair Plan - Discharge Summary Discharge Rx Participant: Yes New Discharge Prescriptions: New Aspirin 81 mg PO DAILY #30 tab carvediloL [Coreg] 6.25 mg PO BID-W/MEALS 30 Days #60 tab Atorvastatin [Lipitor] 40 mg PO DAILY #30 tab amLODIPine [Norvasc] 10 mg PO DAILY 30 Days #30 tab Continue allopurinoL [Allopurinol] 100 mg PO DAILY Insulin NPH Hum/Reg Insulin Hm [NovoLIN 70-30 Flexpen] 3 - 9 units SQ AC-BID PRN PRN Reason: Blood Sugar - High Valsartan [Diovan] 320 mg PO DAILY Lidocaine-Prilocaine Cream [Emla Cream 2.5%/2.5%] 1 applic TOPICAL DAILY hydrALAZINE HCL [Apresoline] 50 mg PO BID Lactulose [Cephulac] 20 gm PO BID PRN #240 ml PRN Reason: Constipation ALPRAZolam [Xanax] 0.5 mg PO HS PRN PRN Reason: Insomnia Discontinued amLODIPine BESYLATE [Amlodipine Besylate] 5 mg PO BID carvediloL [Coreg] 12.5 mg PO BID Atorvastatin [Lipitor] 80 mg PO DAILY Discharge Medication List allopurinoL [Allopurinol] 100 mg PO DAILY 06/02/15 [History] Insulin NPH Hum/Reg Insulin Hm [NovoLIN 70-30 Flexpen] 3 - 9 units SQ AC-BID PRN 02/28/24 [History] hydrALAZINE HCL [Apresoline] 50 mg PO BID 02/28/24 [History] Lactulose [Cephulac] 20 gm PO BID PRN #240 ml 03/05/24 [Rx] ALPRAZolam [Xanax] 0.5 mg PO HS PRN 11/23/24 [History] Lidocaine-Prilocaine Cream [Emla Cream 2.5%/2.5%] 1 applic TOPICAL DAILY 11/23/24 [History] Valsartan [Diovan] 320 mg PO DAILY 11/23/24 [History] Aspirin 81 mg PO DAILY #30 tab 12/09/24 [Rx] Atorvastatin [Lipitor] 40 mg PO DAILY #30 tab 12/09/24 [Rx] carvediloL [Coreg] 6.25 mg PO BID-W/MEALS 30 Days #60 tab 12/09/24 [Rx] amLODIPine [Norvasc] 10 mg PO DAILY 30 Days #30 tab 12/10/24 [Rx] Follow up Appointment(s)/Referral(s): Jac Tomas MD [STAFF PHYSICIAN] - 12/19/24 4:00 pm Nonstaff,Physician [Primary Care Provider] - 1-2 days Discharge Disposition: HOME SELF-CARE
--- NOTE | 2024-12-10 11:17 | P.PN ---
Subjective Patient is seen in follow-up for end-stage renal disease. She is maintained on hemodialysis on Monday schedule. Denies chest pain or shortness of breath. Has a dry cough. Tolerated 2.5 L ultrafiltration yesterday. Family present at bedside. Vital signs are stable. General: No acute distress. HEENT: Head exam is unremarkable. LUNGS: No audible rhonchi or wheezes. HEART: Rate and Rhythm are regular. ABDOMEN: Nontender. EXTREMITITES: No edema. Objective - Vital Signs Vital signs: Vital Signs Temp 98 F 12/10/24 07:00 Pulse 76 12/10/24 07:00 Resp 16 12/10/24 07:00 BP 148/79 12/10/24 07:00 Pulse Ox 98 12/10/24 07:00 FiO2 Intake & Output 12/09/24 12/10/24 12/10/24 18:59 06:59 18:59 Intake Total 518 221 Output Total 5352 Balance -4834 221 Weight 71.2 kg Intake: Oral 118 221 Hemodialysis 400 Output: Hemodialysis 2876 Hemodialysis Net Amount 2476 Other: Voiding Method Toilet Toilet Toilet # Voids 2 1 - Labs CBC & Chem 7: 12/08/24 04:40 12/08/24 04:40 Labs: Abnormal Lab Results - Last 24 Hours (Table) 12/09/24 12/09/24 12/10/24 Range/Units 12:15 20:25 06:15 POC Glucose (mg/dL) 210 H 242 H 115 H (70-110) mg/dL Assessment and Plan Plan: Assessment: 1. End-stage renal disease maintained on hemodialysis on Monday schedule. 2. Hypertension with chronic kidney disease. 3. Acute on chronic diastolic CHF. 4. Coronary disease status post CABG. Plan: Hemodialysis tomorrow. Challenge UF. Lower dry weight outpatient. Maintain low-salt diet. Also advised patient to maintain fluid restriction of less than 50 ounces per day.
--- NOTE | 2024-12-10 11:53 | P.PN ---
Subjective HISTORY OF PRESENT ILLNESS: 79-year-old female with past medical history of CAD status post CABG 14 years ago, end-stage renal disease on hemodialysis Monday, compliant with dialysis. She was previously at [place] and followed up with rn intern there. Recently she moved to [facility]. This time she presented to the hospital because of increased worsening shortness of breath, some chest heaviness. On admission BP was 183/88, heart rate 65 bpm admission labs showed hemoglobin of 11.3, BUN of 27, creatinine of 6.9, troponins were not elevated repeated twice NT-proBNP was 45,000 Admission ECG showed sinus rhythm with nonspecific ST changes, left axis deviation with poor R wave progression Chest x-ray shows mild increased interstitial marking cystoscopy mild increased pulmonary congestion. 12/09/2024 Patient examined this morning at bedside. Patient currently denies any chest pain or pressure. She denies any shortness of breath. She is scheduled to undergo hemodialysis today. She reports that she makes very little urine and only urinates once or twice a day. Blood pressure is elevated with a systolic in the 160s. 12/10/2024 Patient examined this morning at bedside. Patient denies chest pain or pressure. She denies shortness of breath. Vital signs are stable. Blood pressure is improved. PHYSICAL EXAM: VITAL SIGNS: Reviewed. GENERAL: Well-developed in no acute distress. NECK: Supple. No JVD or thyromegaly LUNGS: Respirations even and unlabored. Lungs essentially clear to auscultation bilaterally. HEART: Regular rate and rhythm. S1 and S2 heard. EXTREMITIES: Normal range of motion. No clubbing or cyanosis. Peripheral pulses intact. Mild bilateral lower extremity edema ASSESSMENT: Shortness of breath Acute on chronic heart failure with preserved EF End-stage renal disease on hemodialysis Hypertension, poorly controlled Coronary artery disease with previous CABG PLAN: Continue current cardiac medications including hydralazine, valsartan, carvedilol, amlodipine, atorvastatin, and aspirin Patient stable for discharge from a cardiac standpoint Nurse practitioner note has been reviewed by physician. Signing provider agrees with the documented findings, assessment, and plan of care documented by EVENTS TRAFFIC CONTROLLER as a scribe. Objective - Vital Signs Vital signs: Vital Signs Temp 98 F 12/10/24 07:00 Pulse 76 12/10/24 07:00 Resp 16 12/10/24 07:00 BP 148/79 12/10/24 07:00 Pulse Ox 98 12/10/24 07:00 FiO2 Intake & Output 12/09/24 12/10/24 12/10/24 18:59 06:59 18:59 Intake Total 518 221 Output Total 5352 Balance -4834 221 Weight 71.2 kg Intake: Oral 118 221 Hemodialysis 400 Output: Hemodialysis 2876 Hemodialysis Net Amount 2476 Other: Voiding Method Toilet Toilet Toilet # Voids 2 1 - Labs CBC & Chem 7: 12/08/24 04:40 12/08/24 04:40 Labs: Abnormal Lab Results - Last 24 Hours (Table) 12/09/24 12/09/24 12/10/24 Range/Units 12:15 20:25 06:15 POC Glucose (mg/dL) 210 H 242 H 115 H (70-110) mg/dL
== END 2024-12-10 10:40 | disposition home or self-care (01) ==
LOC: EC 04:04 → 4SSUR 06:35 → 6NMEDSUR 06:53
PROVIDERS: ADMIT Hospitalist; ATTEND Hospitalist
DX: I16.0 Hypertensive urgency (principal); I13.2 Hypertensive heart and chronic kidney disease with heart failure and with stage 5 chronic kidney disease, or end stage renal disease; I50.33 Acute on chronic diastolic (congestive) heart failure; N18.6 End stage renal disease; R41.82 Altered mental status, unspecified; I25.10 Atherosclerotic heart disease of native coronary artery without angina pectoris; F32.A Depression, unspecified; E11.22 Type 2 diabetes mellitus with diabetic chronic kidney disease; D63.1 Anemia in chronic kidney disease; N25.0 Renal osteodystrophy; Z95.1 Presence of aortocoronary bypass graft; Z99.2 Dependence on renal dialysis; Z79.4 Long term (current) use of insulin; Z79.899 Other long term (current) drug therapy; Z88.1 Allergy status to other antibiotic agents; Z88.6 Allergy status to analgesic agent; Z88.0 Allergy status to penicillin
CPT/HCPCS: 99285; 36415; 94640; 93005; 93306; 83880; 80061; 80053; 84443; 84484; 85025; 85610; 85730; 83036; 71045; G0378 ×3; 90935

== ENCOUNTER 2024-12-14 23:59 | Inpatient (IN) | payer MEDICARE ==
--- NOTE | 2024-12-15 01:08 | ED ---
SOB HPI - General Chief Complaint: Shortness of Breath Stated Complaint: SOB Time Seen by Provider: 12/15/24 00:10 Source: patient, RN notes reviewed Mode of arrival: wheelchair Limitations: no limitations - History of Present Illness Initial Comments: 79-year-old female presents emerged department complaint shortness of breath. Patient states she feels like she has too much fluid on her. Patient has renal failure states that she did go to dialysis on Monday and had a normal run. Patient states that she started having creasing dyspnea this evening and feels exactly the same as she has had for recent admissions. She denies any leg pain leg swelling. Patient states she makes very little to no urine output. Patient denies fevers or chills no chest pain no headache or vomiting. - Related Data Home Medications Medication Instructions Recorded Confirmed allopurinoL [Allopurinol] 100 mg PO DAILY 06/02/15 12/15/24 Insulin NPH Hum/Reg Insulin Hm 3 - 9 units SQ AC-BID PRN 02/28/24 12/15/24 [NovoLIN 70-30 Flexpen] hydrALAZINE HCL [Apresoline] 50 mg PO BID 02/28/24 12/15/24 ALPRAZolam [Xanax] 0.5 mg PO HS PRN 11/23/24 12/15/24 Lidocaine-Prilocaine Cream [Emla 1 applic TOPICAL DAILY 11/23/24 12/15/24 Cream 2.5%/2.5%] Valsartan [Diovan] 320 mg PO DAILY 11/23/24 12/15/24 Previous Rx's Medication Instructions Recorded Lactulose [Cephulac] 20 gm PO BID PRN #240 ml 03/05/24 Aspirin 81 mg PO DAILY #30 tab 12/09/24 Atorvastatin [Lipitor] 40 mg PO DAILY #30 tab 12/09/24 carvediloL [Coreg] 6.25 mg PO BID-W/MEALS 30 Days #60 12/09/24 tab amLODIPine [Norvasc] 10 mg PO DAILY 30 Days #30 tab 12/10/24 Allergies Allergy/AdvReac Type Severity Reaction Status Date / Time ciprofloxacin [From Cipro] Allergy Vomiting Verified 12/15/24 12:12 ciprofloxacin HCl Allergy Vomiting Verified 12/15/24 12:12 [From Cipro] ibuprofen [From Motrin] Allergy Unknown Verified 12/15/24 12:12 metformin [From Glucophage] Allergy Unknown Verified 12/15/24 12:12 Penicillins Allergy Rash/Hives Verified 12/15/24 12:12 Review of Systems ROS Statement: Those systems with pertinent positive or pertinent negative responses have been documented in the HPI. ROS Other: All systems not noted in ROS Statement are negative. Past Medical History Past Medical History: Coronary Artery Disease (CAD), Diabetes Mellitus, Hypertension, Renal Disease Additional Past Medical History / Comment(s): arthritis, gout, stage 4 kidney disease, dialysis History of Any Multi-Drug Resistant Organisms: None Reported Past Surgical History: Bladder Surgery, Coronary Bypass/CABG, Hysterectomy, Orthopedic Surgery Past Psychological History: Depression Smoking Status: Never smoker Past Alcohol Use History: Rare Past Drug Use History: None Reported General Exam Limitations: no limitations General appearance: alert, in no apparent distress Head exam: Present: atraumatic, normocephalic, normal inspection Eye exam: Present: normal appearance, PERRL, EOMI. Absent: scleral icterus, conjunctival injection, periorbital swelling ENT exam: Present: normal exam, normal oropharynx, mucous membranes moist Neck exam: Present: normal inspection, full ROM. Absent: tenderness, meningismus, lymphadenopathy Respiratory exam: Present: rales. Absent: normal lung sounds bilaterally, respiratory distress, wheezes, rhonchi, stridor Cardiovascular Exam: Present: regular rate, normal rhythm, normal heart sounds. Absent: systolic murmur, diastolic murmur, rubs, gallop, clicks GI/Abdominal exam: Present: soft, normal bowel sounds. Absent: distended, tenderness, guarding, rebound, rigid Extremities exam: Absent: pedal edema Course Vital Signs 12/15/24 12/15/24 12/15/24 00:02 01:58 02:02 Temperature 97.6 F Pulse Rate 64 60 Respiratory 15 16 18 Rate Blood Pressure 202/90 164/80 O2 Sat by Pulse 98 99 Oximetry 12/15/24 05:22 Temperature Pulse Rate 57 L Respiratory 18 Rate Blood Pressure 189/73 O2 Sat by Pulse 98 Oximetry Medical Decision Making - Medical Decision Making Was pt. sent in by a medical professional or institution (, PA, TECHNOLOGY RESOURCE TEACHER, urgent care, hospital, or half-way...) When possible be specific @ -No Did you speak to anyone other than the patient for history (EMS, parent, family, police, friend...)? What history was obtained from this source @ -No Did you review nursing and triage notes (agree or disagree)? Why? @ -I reviewed and agree with nursing and triage notes Were old charts reviewed (outside hosp., previous admission, EMS record, old EKG, old radiological studies, urgent care reports/EKG's, half-way records)? Report findings @ -No old charts were reviewed Differential Diagnosis (chest pain, altered mental status, abdominal pain women, abdominal pain men, vaginal bleeding, weakness, fever, dyspnea, syncope, headache, dizziness, GI bleed, back pain, seizure, CVA, palpatations, mental health, musculoskeletal)? @ -Differential Dyspnea: Coronary syndrome, arrhythmia, tamponade, asthma, COPD, pulmonary embolism, pneumonia, pneumothorax, pulmonary effusion, anaphylaxis, diabetic ketoacidosis, flailed chest, pulmonary contusion, diaphragmatic rupture, anemia, neuromuscular, this is not meant to be an all-inclusive list. EKG interpreted by me (3pts min.). @ -As above X-rays interpreted by me (1pt min.). @ -Chest x-ray shows pulmonary edema CT interpreted by me (1pt min.). @ -None done U/S interpreted by me (1pt. min.). @ -None done What testing was considered but not performed or refused? (CT, X-rays, U/S, labs)? Why? @ -None What meds were considered but not given or refused? Why? @ -None Did you discuss the management of the patient with other professionals (professionals i.e. , PA, TECHNOLOGY RESOURCE TEACHER, lab, RT, psych nurse, social contact worker, perinatal breastfeeding assistant, teacher, state wildlife officer, case management social worker)? Give summary @ -Dr. Kaba for admission Was smoking cessation discussed for >3mins.? @ -No Was critical care preformed (if so, how long)? @ -No Were there social determinants of health that impacted care today? How? (Homelessness, low income, unemployed, alcoholism, drug addiction, transportation, low edu. Level, literacy, decrease access to med. care, fpc, rehab)? @ -No Was there de-escalation of care discussed even if they declined (Discuss DNR or withdrawal of care, Hospice)? DNR status @ -No What co-morbidities impacted this encounter? (DM, HTN, Smoking, COPD, CAD, Cancer, CVA, ARF, Chemo, Hep., AIDS, mental health diagnosis, sleep apnea, morbid obesity)? @ -Stage renal disease on dialysis Was patient admitted / discharged? Hospital course, mention meds given and route, prescriptions, significant lab abnormalities, going to OR and other pertinent info. @ -Admitted patient is found to have pulmonary edema, dyspnea patient is on current dialysis for end-stage renal disease. Requiring further dialysis. Patient will be admitted. Undiagnosed new problem with uncertain prognosis? @ -No Drug Therapy requiring intensive monitoring for toxicity (Heparin, Nitro, Insulin, Cardizem)? @ -No Were any procedures done? @ -No Diagnosis/symptom? @ -Dyspnea, CHF, pulmonary edema end-stage renal disease on dialysis Acute, or Chronic, or Acute on Chronic? @ -Acute Uncomplicated (without systemic symptoms) or Complicated (systemic symptoms)? @ -Complicated Side effects of treatment? @ -No Exacerbation, Progression, or Severe Exacerbation? @ -No Poses a threat to life or bodily function? How? (Chest pain, [place], SC, pneumonia, PE, COPD, DKA, ARF, appy, cholecystitis, CVA, Diverticulitis, Homicidal, Suicidal, threat to staff... and all critical care pts) @ -Yes risk of pulmonary cardiac function - Lab Data Result diagrams: 12/15/24 02:11 12/15/24 02:11 Lab Results 12/15/24 12/15/24 12/15/24 Range/Units 02:11 02:11 02:11 WBC 8.59 (4.50-10.00) 10*3/uL RBC 3.23 L (4.10-5.20) 10*6/uL Hgb 10.7 L (12.0-15.0) g/dL Hct 32.6 L (37.2-46.3) % MCV 100.9 H (80.0-97.0) fL MCH 33.1 H (27.0-32.0) pg MCHC 32.8 (32.0-37.0) g/dL Plt Count 170 (140-440) 10*3/uL MPV 9.8 (9.5-12.2) fL Immature Gran % (Auto) 0.3 % Neutrophils % 62.8 % Lymphocytes % 22.8 % Monocytes % 10.2 % Eosinophils % 3.0 % Basophils % 0.9 % Immature Gran # 0.03 (0.00-0.04) 10*3/uL Neutrophils # 5.38 (1.80-7.70) 10*3/uL Lymphocytes # 1.96 (0.90-5.00) 10*3/uL Monocytes # 0.88 (0.20-1.00) 10*3/uL Eosinophils # 0.26 (0.04-0.35) 10*3/uL Basophils # 0.08 (0.00-0.10) 10*3/uL PT 10.7 (10.0-12.5) sec INR 1.0 (<1.2) APTT 22.2 (22.0-30.0) sec Sodium 137 (137-145) mmol/L Potassium 4.6 (3.5-5.1) mmol/L Chloride 97 L (98-107) mmol/L Carbon Dioxide 25 (22-30) mmol/L Anion Gap 15 mmol/L BUN 35 H (7-17) mg/dL Creatinine 7.23 H* (0.52-1.04) mg/dL Est GFR (CKD-EPI)AfAm 6 (>60 ml/min/1.73 sqM) Est GFR (CKD-EPI)NonAf 5 (>60 ml/min/1.73 sqM) Glucose 153 H (74-99) mg/dL Calcium 9.4 (8.4-10.2) mg/dL Phosphorus 3.4 (2.5-4.5) mg/dL Magnesium 2.1 (1.6-2.3) mg/dL Total Bilirubin 0.3 (0.2-1.3) mg/dL AST 25 (14-36) U/L ALT 16 (4-34) U/L Alkaline Phosphatase 110 (38-126) U/L Troponin I (0.000-0.034) ng/mL NT-Pro-B Natriuret Pep 87503 pg/mL Total Protein 6.4 (6.3-8.2) g/dL Albumin 4.3 (3.5-5.0) g/dL 12/15/24 Range/Units 02:11 WBC (4.50-10.00) 10*3/uL RBC (4.10-5.20) 10*6/uL Hgb (12.0-15.0) g/dL Hct (37.2-46.3) % MCV (80.0-97.0) fL MCH (27.0-32.0) pg MCHC (32.0-37.0) g/dL Plt Count (140-440) 10*3/uL MPV (9.5-12.2) fL Immature Gran % (Auto) % Neutrophils % % Lymphocytes % % Monocytes % % Eosinophils % % Basophils % % Immature Gran # (0.00-0.04) 10*3/uL Neutrophils # (1.80-7.70) 10*3/uL Lymphocytes # (0.90-5.00) 10*3/uL Monocytes # (0.20-1.00) 10*3/uL Eosinophils # (0.04-0.35) 10*3/uL Basophils # (0.00-0.10) 10*3/uL PT (10.0-12.5) sec INR (<1.2) APTT (22.0-30.0) sec Sodium (137-145) mmol/L Potassium (3.5-5.1) mmol/L Chloride (98-107) mmol/L Carbon Dioxide (22-30) mmol/L Anion Gap mmol/L BUN (7-17) mg/dL Creatinine (0.52-1.04) mg/dL Est GFR (CKD-EPI)AfAm (>60 ml/min/1.73 sqM) Est GFR (CKD-EPI)NonAf (>60 ml/min/1.73 sqM) Glucose (74-99) mg/dL Calcium (8.4-10.2) mg/dL Phosphorus (2.5-4.5) mg/dL Magnesium (1.6-2.3) mg/dL Total Bilirubin (0.2-1.3) mg/dL AST (14-36) U/L ALT (4-34) U/L Alkaline Phosphatase (38-126) U/L Troponin I 0.015 (0.000-0.034) ng/mL NT-Pro-B Natriuret Pep pg/mL Total Protein (6.3-8.2) g/dL Albumin (3.5-5.0) g/dL - EKG Data -: EKG Interpreted by Me EKG Comments: EKG performed at 00: 16 sinus rhythm rate of 64 CO 199 QRS 105 QT/QTc 434/444 Disposition Clinical Impression: Pulmonary edema, Dyspnea, ESRD needing dialysis Disposition: ADMITTED IP TO THIS HOSP Condition: Fair Time of Disposition: 03:33
[2024-12-15] MEDS: hydrALAZINE HCL 20 MG/ML 1 ML VIAL IVP STA (02:24)
[2024-12-15 02:31] LABS: Basophils # (A) 0.08 10*3/uL (0.00-0.10); Basophils % (A) 0.9 %; Eosinophils # (A) 0.26 10*3/uL (0.04-0.35); Eosinophils % (A) 3.0 %; HCT 32.6 % (37.2-46.3); HGB 10.7 g/dL (12.0-15.0); Lymphocytes # (A) 1.96 10*3/uL (0.90-5.00); Lymphocytes % (A) 22.8 %; MCH 33.1 pg (27.0-32.0); MCHC 32.8 g/dL (32.0-37.0); MCV 100.9 fL (80.0-97.0); Monocytes # (A) 0.88 10*3/uL (0.20-1.00); Monocytes % (A) 10.2 %; Neutrophils # (A) 5.38 10*3/uL (1.80-7.70); Neutrophils % (A) 62.8 %; Platelet Count 170 10*3/uL (140-440); RBC 3.23 10*6/uL (4.10-5.20); RDW 13.8 % (11.5-14.5); WBC 8.59 10*3/uL (4.50-10.00)
--- NOTE | 2024-12-15 02:54 | XR ---
EXAM: XR Chest, 2 Views CLINICAL HISTORY: ITS.REASON XR Reason: difficulty breathing TECHNIQUE: Frontal and lateral views of the chest. COMPARISON: Chest radiograph on 12/08/2024 FINDINGS: Hardware: None. Lungs/pleura: Mildly prominent lung markings. No focal consolidation. No pleural effusion or pneumothorax. Heart/mediastinum: Borderline size of the cardiac silhouette. Median sternotomy changes. Atherosclerotic changes in the aorta. Soft tissues: Unremarkable. Bones: No acute fracture. Upper abdomen: Normal. IMPRESSION: Mildly prominent lung markings may be secondary to technique versus pulmonary vasculature congestion.
[2024-12-15 03:02] LABS: ALT 16 U/L (4-34); AST 25 U/L (14-36); African American GFR (CKD) 6 (>60 ml/min/1.73 sqM); Albumin 4.3 g/dL (3.5-5.0); Alkaline Phosphatase 110 U/L (38-126); Anion Gap 15 mmol/L; Blood Urea Nitrogen 35 mg/dL (7-17); Calcium 9.4 mg/dL (8.4-10.2); Carbon Dioxide 25 mmol/L (22-30); Chloride 97 mmol/L (98-107); Glucose 153 mg/dL (74-99); Magnesium 2.1 mg/dL (1.6-2.3); Non-African American GFR(CKD) 5 (>60 ml/min/1.73 sqM); Potassium 4.6 mmol/L (3.5-5.1); Sodium 137 mmol/L (137-145); Total Protein 6.4 g/dL (6.3-8.2)
[2024-12-15 03:09] LABS: NT-Pro-B-Type Natriuretic Pept 26100 pg/mL
[2024-12-15] MEDS ORDERED: NALOXONE 0.4 MG/ML 1 ML VIAL IV PRN (03:32)
[2024-12-15 03:54] LABS: INR 1.0 (<1.2); Partial Thromboplastin Time 22.2 sec (22.0-30.0); Prothrombin Time 10.7 sec (10.0-12.5)
[2024-12-15 07:28] LABS: Glucose,Whole Blood 169 mg/dL (70-110)
[2024-12-15] MEDS ORDERED: LACTULOSE 20 GM/30 ML CUP PO PRN (09:02)
[2024-12-15] MEDS: ALPRAZolam 0.5 MG TAB PO STA (09:20)
[2024-12-15] MEDS: ATORVASTATIN 40 MG TAB PO SCH (09:27)
[2024-12-15] MEDS: amLODIPine 10 MG TAB PO SCH (09:27)
[2024-12-15] MEDS: ASPIRIN 81 MG PO SCH (09:27)
[2024-12-15] MEDS: INSULIN NPL/INSULIN LISPRO 100 UNIT/ML 10 ML VL (Humalog 75/25) SQ SCH (09:28)
--- NOTE | 2024-12-15 09:33 | CT ---
EXAMINATION TYPE: CT chest wo con CT DLP: 375.2 mGycm, Automated exposure control for dose reduction was used. DATE OF EXAM: 12/15/2024 9:25 AM COMPARISON: Chest radiograph 12/08/2024 CLINICAL INDICATION:Female, 79 years old with history of pleural effusion; PHH, Pleural effusion. TECHNIQUE: Multiple axial images were obtained through the chest without IV contrast. Lack of IV or o ral contrast limits evaluation of solid and hollow organ viscera. . Coronal and sagittal reformats re viewed. FINDINGS: LUNGS/ PLEURA: No pleural effusion, pneumothorax or focal consolidation. Tree-in-bud nodular opacitie s within the superior segment of the left lower lobe. Minimal atelectasis along the right major fissu re. Strandy bilateral lower lobe subpleural atelectasis. AIRWAY: Patent and unremarkable.. HEART: Cardiomegaly is demonstrated.Small aortic valvular calcifications. No pericardial effusion. Po st-CABG changes with coronary artery calcifications and/or stents. MEDIASTINUM: Borderline enlarged low right paratracheal 1.0 cm short axis lymph node. Several smaller subcentimeter mediastinal lymph nodes. VASCULATURE: No aortic aneurysm. Atherosclerotic calcification of the aorta and its branches. Dilata tion of the main pulmonary artery measuring up to 3.4 cm which can be seen with pulmonary arterial hy pertension. MUSCULOSKELETAL: No acute osseous abnormalities. Sternotomy wires. DISH of the thoracic spine. Modera te degenerative disc disease of the visualized lumbar spine. SOFT TISSUES/LYMPH NODES: Unremarkable. LOWER NECK: No significant findings. UPPER ABDOMEN: Small hiatal hernia. Cholelithiasis. Cortical thinning of the bilateral kidneys. IMPRESSION: 1. No pleural effusion. 2. Tree-in-bud nodular opacities within the superior segment of the left lower lobe suggesting an inf ectious/inflammatory bronchiolitis. 3. Borderline enlarged probably reactive low paratracheal lymph node. 4. Cholelithiasis. 5. Small hiatal hernia. 6. Findings of chronic medical renal disease. [facility] Ari, , 12/15/2024 9:30 AM
--- NOTE | 2024-12-15 11:05 | P.CRDCN ---
History of Present Illness Consult date: 12/15/24 Requesting physician: Semaj Kaba Reason for Consult (text): Pulm Edema SOB at home, existing pt at office Chief complaint: Shortness of breath History of present illness: This is a pleasant 79-year-old female patient with past medical history of CAD status post CABG 14 years ago, end-stage renal disease on hemodialysis Monday, hypertension, hyperlipidemia. Presented to the hospital with complaints of shortness of breath. The patient was recently discharged on 12/10/2024 at which time she was admitted with shortness of breath. At that time she underwent echocardiogram that showed normal LV systolic function with mild to moderate MR, moderate pulmonary hypertension and moderate tricuspid regurgitation. NT proBNP that time was 45,900. She was discharged home for dialysis on Monday and started to become progressively more short of breath throughout the day yesterday. The patient does admit she has lost weight recently. She has been compliant with dialysis. Blood pressure at home typically runs 160s to 170s systolic after taking medications. She is compliant with a low-sodium diet. Diagnostics -EKG: Sinus mechanism -Chest x-ray: Mildly prominent lung markings may be secondary to technique versus pulmonary vascular congestion -Chest CT without contrast: No pleural effusion, tree-in-bud nodular opacities within the superior segment of the left lower lobe suggesting an infectious/inflammatory bronchiolitis, borderline enlarged probably reactive low paratracheal lymph node, cholelithiasis, small hiatal hernia, and findings of chronic medical renal disease -Laboratory studies: White blood cell count 8.59, hemoglobin 10.7, sodium 137, potassium 4.6, BUN 35, creatinine 7.23, troponin 0.015, NT proBNP 26,100 -Home cardiac medications: Hydralazine 50 mg p.o. twice daily, carvedilol 6.25 mg p.o. twice daily, amlodipine 10 mg p.o. daily, valsartan 320 mg p.o. daily, Lipitor 40 mg p.o. daily, and aspirin 81 mg p.o. daily -Prior stress test: N/A -Echocardiogram: Normal LV systolic function with mild to moderate MR moderate pulmonary hypertension and moderate TR -Cardiac catheterization: N/A Review Of Systems: At the time of my exam: CONSTITUTIONAL: Denies fever or chills. HEENT: Denies blurred vision, vision changes. CARDIOVASCULAR: Denies chest pain. Denies orthopnea. Denies PND. Denies palpitations, dizziness, or syncope. RESPIRATORY: Denies shortness of breath, wheezing. + cough. Denies hemoptysis. GASTROINTESTINAL: Denies abdominal pain. Denies nausea or vomiting. Denies bleeding. HEMATOLOGIC: Denies bleeding disorders. GENITOURINARY: Denies hematuria. SKIN: Denies puritis. Denies rash. PHYSICAL EXAMINATION: This is a 79-year-old female in no apparent distress at the time of my examination. VITAL SIGNS: Reviewed. HEENT: Head is atraumatic, normocephalic. Pupils are equal, round. Sclerae anicteric. Conjunctivae are clear. Mucous membranes of the mouth are moist. Neck is supple. There is no elevated jugular venous pressure. No carotid bruit is heard. CHEST EXAMINATION: Lungs reveal faint bibasilar crackles. No wheezes or rhonchi. Respirations even and nonlabored. HEART EXAMINATION: Heart regular, positive S1 and S2. No S3. No S4. Systolic murmur. ABDOMEN: Soft, nontender. Bowel sounds are heard. No organomegaly noted. EXTREMITIES: 2+ peripheral pulses with no evidence of peripheral edema and no calf tenderness noted. Left arm AV fistula NEUROLOGIC EXAMINATION: Patient is awake, alert and oriented x3. Assessment: 1. Shortness of breath 2. CAD status post CABG 3. End-stage renal disease on hemodialysis 4. Hypertension Plan: Nephrology was in to see the patient with plans for back to back dialysis Monday and Monday. Patient likely being in adequately dialyzed due to failure to update patient's dry weight. We will increase hydralazine to 75 mg p.o. 3 times daily. We will continue to follow the patient and provide further recommendations accordingly. Thank you kindly for this consultation. Nurse practitioner note has been reviewed, I agree with documented findings and plan of care. Patient was seen and examined. Past Medical History Past Medical History: Coronary Artery Disease (CAD), Diabetes Mellitus, Hypertension, Renal Disease Additional Past Medical History / Comment(s): arthritis, gout, stage 4 kidney disease, dialysis History of Any Multi-Drug Resistant Organisms: None Reported Past Surgical History: Bladder Surgery, Coronary Bypass/CABG, Hysterectomy, Orthopedic Surgery Past Psychological History: Depression Smoking Status: Never smoker Past Alcohol Use History: Rare Past Drug Use History: None Reported Medications and Allergies Home Medications Medication Instructions Recorded Confirmed Type allopurinoL [Allopurinol] 100 mg PO DAILY 06/02/15 12/08/24 History Insulin NPH Hum/Reg Insulin Hm 3 - 9 units SQ AC-BID PRN 02/28/24 12/08/24 History [NovoLIN 70-30 Flexpen] hydrALAZINE HCL [Apresoline] 50 mg PO BID 02/28/24 12/08/24 History Lactulose [Cephulac] 20 gm PO BID PRN #240 ml 03/05/24 12/08/24 Rx ALPRAZolam [Xanax] 0.5 mg PO HS PRN 11/23/24 12/08/24 History Lidocaine-Prilocaine Cream [Emla 1 applic TOPICAL DAILY 11/23/24 12/08/24 History Cream 2.5%/2.5%] Valsartan [Diovan] 320 mg PO DAILY 11/23/24 12/08/24 History Aspirin 81 mg PO DAILY #30 tab 12/09/24 Rx Atorvastatin [Lipitor] 40 mg PO DAILY #30 tab 12/09/24 Rx carvediloL [Coreg] 6.25 mg PO BID-W/MEALS 30 Days #60 12/09/24 Rx tab amLODIPine [Norvasc] 10 mg PO DAILY 30 Days #30 tab 12/10/24 Rx Allergies Allergy/AdvReac Type Severity Reaction Status Date / Time ciprofloxacin [From Cipro] Allergy Vomiting Verified 12/15/24 00:01 ciprofloxacin HCl Allergy Vomiting Verified 12/15/24 00:01 [From Cipro] ibuprofen [From Motrin] Allergy Unknown Verified 12/15/24 00:01 metformin [From Glucophage] Allergy Unknown Verified 12/15/24 00:01 Penicillins Allergy Rash/Hives Verified 12/15/24 00:01 Physical Exam Vitals: Vital Signs Temp Pulse Pulse Resp BP BP Pulse Ox 12/15/24 07:49 97.5 F L 61 16 212/66 98 12/15/24 05:22 57 L 18 189/73 98 12/15/24 02:02 18 12/15/24 01:58 60 16 164/80 99 12/15/24 00:02 97.6 F 64 15 202/90 98 Intake and Output 12/14/24 12/15/24 12/15/24 22:59 06:59 14:59 Intake Total 480 Balance 480 Intake: Oral 480 Other: Weight 69.4 kg Results 12/15/24 02:11 12/15/24 02:11 Cardiac Enzymes 12/15/24 12/15/24 Range/Units 02:11 02:11 AST 25 (14-36) U/L Troponin I 0.015 (0.000-0.034) ng/mL Coagulation 12/15/24 Range/Units 02:11 PT 10.7 (10.0-12.5) sec APTT 22.2 (22.0-30.0) sec CBC 12/15/24 Range/Units 02:11 WBC 8.59 (4.50-10.00) 10*3/uL RBC 3.23 L (4.10-5.20) 10*6/uL Hgb 10.7 L (12.0-15.0) g/dL Hct 32.6 L (37.2-46.3) % Plt Count 170 (140-440) 10*3/uL Comprehensive Metabolic Panel 12/15/24 Range/Units 02:11 Sodium 137 (137-145) mmol/L Potassium 4.6 (3.5-5.1) mmol/L Chloride 97 L (98-107) mmol/L Carbon Dioxide 25 (22-30) mmol/L BUN 35 H (7-17) mg/dL Creatinine 7.23 H* (0.52-1.04) mg/dL Glucose 153 H (74-99) mg/dL Calcium 9.4 (8.4-10.2) mg/dL AST 25 (14-36) U/L ALT 16 (4-34) U/L Alkaline Phosphatase 110 (38-126) U/L Total Protein 6.4 (6.3-8.2) g/dL Albumin 4.3 (3.5-5.0) g/dL Current Medications Generic Name Dose Route Start Last Admin Trade Name Freq PRN Reason Stop Dose Admin Acetaminophen 650 mg 12/15/24 03:32 Acetaminophen Tab 325 Mg Tab PO Q6HR PRN Mild Pain or Fever > 100.5 Allopurinol 100 mg 12/15/24 09:00 12/15/24 09:27 Allopurinol 100 Mg Tab PO 100 mg DAILY TIM Administration Alprazolam 0.5 mg 12/15/24 09:02 Alprazolam 0.5 Mg Tab PO HS PRN Insomnia Amlodipine Besylate 10 mg 12/15/24 09:00 12/15/24 09:27 Amlodipine 10 Mg Tab PO 10 mg DAILY TIM Administration Aspirin 81 mg 12/15/24 09:00 12/15/24 09:27 Aspirin 81 Mg PO 81 mg DAILY ITM Administration Atorvastatin Calcium 40 mg 12/15/24 09:00 12/15/24 09:27 Atorvastatin 40 Mg Tab PO 40 mg DAILY TIM Administration Carvedilol 6.25 mg 12/15/24 08:30 12/15/24 09:27 Carvedilol 6.25 Mg Tab PO 6.25 mg BID-W/MEALS TIM Administration Hydralazine HCl 50 mg 12/15/24 09:00 12/15/24 09:27 Hydralazine Hcl 50 Mg Tab PO 50 mg BID TIM Administration Insulin Lispro Protam/Lispro Human 3 - 9 unit 12/15/24 08:45 12/15/24 09:28 Insulin Npl/Insulin Lispro 100 Unit/Ml 10 Ml Vl (Humalog ) SQ Not Given AC-BID TIM Lactulose 20 gm 12/15/24 09:02 Lactulose 20 Gm/30 Ml Cup PO BID PRN Constipation Naloxone HCl 0.2 mg 12/15/24 03:32 Naloxone 0.4 Mg/Ml 1 Ml Vial IV Q2M PRN Opioid Reversal Valsartan 320 mg 12/15/24 09:00 Valsartan 160 Mg Tab PO DAILY TIM Intake and Output 12/14/24 12/15/24 12/15/24 22:59 06:59 14:59 Intake Total 480 Balance 480 Intake: Oral 480 Other: Weight 69.4 kg 12/15/24 02:11 12/15/24 02:11
--- NOTE | 2024-12-15 11:10 | P.NPCON ---
History of Present Illness - Reason for Consult end stage renal disease - History of Present Illness Patient is an 79-year-old female with end-stage renal disease maintained on hemodialysis on Monday schedule. She is admitted to the hospital with complaints of shortness of breath. Patient states she has been short of breath for some time now and it progressively worsened yesterday. Sadi shea did have her hemodialysis yesterday and is not aware of how much fluid was taken off. She thinks she may have lost weight recently. No complaints of fever chills abdominal pain nausea vomiting or diarrhea. Chest x-ray did show evidence of pulmonary vascular congestion. Recent echocardiogram on 12/09/2024 showed preserved ejection fraction. Past Medical History Past Medical History: Coronary Artery Disease (CAD), Diabetes Mellitus, Hypertension, Renal Disease Additional Past Medical History / Comment(s): arthritis, gout, stage 4 kidney disease, dialysis History of Any Multi-Drug Resistant Organisms: None Reported Past Surgical History: Bladder Surgery, Coronary Bypass/CABG, Hysterectomy, Orthopedic Surgery Past Psychological History: Depression Smoking Status: Never smoker Past Alcohol Use History: Rare Past Drug Use History: None Reported Medications and Allergies Home Medications Medication Instructions Recorded Confirmed Type allopurinoL [Allopurinol] 100 mg PO DAILY 06/02/15 12/08/24 History Insulin NPH Hum/Reg Insulin Hm 3 - 9 units SQ AC-BID PRN 02/28/24 12/08/24 History [NovoLIN 70-30 Flexpen] hydrALAZINE HCL [Apresoline] 50 mg PO BID 02/28/24 12/08/24 History Lactulose [Cephulac] 20 gm PO BID PRN #240 ml 03/05/24 12/08/24 Rx ALPRAZolam [Xanax] 0.5 mg PO HS PRN 11/23/24 12/08/24 History Lidocaine-Prilocaine Cream [Emla 1 applic TOPICAL DAILY 11/23/24 12/08/24 History Cream 2.5%/2.5%] Valsartan [Diovan] 320 mg PO DAILY 11/23/24 12/08/24 History Aspirin 81 mg PO DAILY #30 tab 12/09/24 Rx Atorvastatin [Lipitor] 40 mg PO DAILY #30 tab 12/09/24 Rx carvediloL [Coreg] 6.25 mg PO BID-W/MEALS 30 Days #60 12/09/24 Rx tab amLODIPine [Norvasc] 10 mg PO DAILY 30 Days #30 tab 12/10/24 Rx Allergies Allergy/AdvReac Type Severity Reaction Status Date / Time ciprofloxacin [From Cipro] Allergy Vomiting Verified 12/15/24 00:01 ciprofloxacin HCl Allergy Vomiting Verified 12/15/24 00:01 [From Cipro] ibuprofen [From Motrin] Allergy Unknown Verified 12/15/24 00:01 metformin [From Glucophage] Allergy Unknown Verified 12/15/24 00:01 Penicillins Allergy Rash/Hives Verified 12/15/24 00:01 Physical Exam Vitals: Vital Signs Temp Pulse Pulse Resp BP BP Pulse Ox 12/15/24 07:49 97.5 F L 61 16 212/66 98 12/15/24 05:22 57 L 18 189/73 98 12/15/24 02:02 18 12/15/24 01:58 60 16 164/80 99 12/15/24 00:02 97.6 F 64 15 202/90 98 Intake and Output 12/14/24 12/15/24 12/15/24 22:59 06:59 14:59 Intake Total 480 Balance 480 Intake: Oral 480 Other: Weight 69.4 kg Patient is awake and alert oriented x 3 Examination of the heart S1 and S2 Examination of the lungs bilateral breath sounds are heard with basal crackles Abdomen is soft nontender Examination lower extremity shows trace edema PLATER HOT DIP exam grossly intact Results - Lab Results Most recent lab results Calcium 9.4 mg/dL (8.4-10.2) 12/15/24 02:11 Phosphorus 3.4 mg/dL (2.5-4.5) 12/15/24 02:11 Magnesium 2.1 mg/dL (1.6-2.3) 12/15/24 02:11 12/15/24 02:11 12/15/24 02:11 Assessment and Plan Assessment: 1. End-stage renal disease on hemodialysis on Monday schedule via left arm AV fistula 2. Volume overload 3. Hypertension with end-stage renal disease 4. Dyspnea most likely related to volume overload 5. History of moderate pulmonary hypertension Plan: Hemodialysis in a.m. Discussed with patient regarding adjusting dry weight as outpatient as she has recently lost weight. Repeat chest x-ray tomorrow after hemodialysis and consider extra treatment on Monday depending on volume status. Continue current antihypertensive regimen. Check phosphorus as I do not see phosphate binders on her home med list. Thank you for the consultation. We will continue to follow the patient with you during her hospitalization.
[2024-12-15 12:16] LABS: Glucose,Whole Blood 168 mg/dL (70-110)
[2024-12-15] MEDS: VALSARTAN 160 MG TAB PO SCH (13:51)
[2024-12-15 16:59] LABS: Glucose,Whole Blood 217 mg/dL (70-110)
[2024-12-15 20:23] LABS: Glucose,Whole Blood 187 mg/dL (70-110)
[2024-12-15] MEDS: CALCIUM CARBONATE 500 MG CHEWABLE PO PRN (22:48)
[2024-12-16 00:53] LABS: Bacteria,Urine Many /hpf; Bilirubin,Urine Negative (Negative); Blood,Urine Small (Negative); Color,Urine Light Red; Glucose,Urine (UA) Negative (Negative); Ketones,Urine Negative (Negative); Leukocyte Esterase,Urine Large (Negative); Nitrite,Urine Negative (Negative); PH, Urine 6.5 (5.0-8.0); Protein,Urine 1+ (Negative); RBC,Urine 12 /hpf (0-5); Urobilinogen,Urine <2.0 mg/dL (<2.0); WBC,Urine >182 /hpf (0-5)
[2024-12-16 00:58] LABS: Specific Gravity,Urine 1.020 (1.001-1.035)
--- NOTE | 2024-12-16 02:08 | HP ---
HISTORY AND PHYSICAL HISTORY OF PRESENT ILLNESS: An 79-year-old female with history of coronary artery disease, status post bypass 14 years ago, dialysis 3 times a week, hypertension, dyslipidemia, shortness of breath. She is admitted with shortness of breath. Echo shows moderate pulmonary hypertension. BNP elevated. Discharge to dialysis. Blood pressure 160s to 170s. Low-sodium diet. She is not a fluid overload, . CAT scan shows pneumonia, started on Rocephin and azithromycin for pneumonia. PHYSICAL EXAMINATION: CARDIOVASCULAR: S1, S2. LUNGS: Transmitted upper sounds. HEMATOLOGY: Negative Homans. PSYCH: Fair mood and affect. NEUROLOGIC: Alert and oriented x3. Sits up in the chair. She has congestive cough and rhonchi, shortness of breath, coronary artery disease, status post CABG hypertension, [id number] diastolic heart failure. pneumonia. Prognosis is guarded. Please see further orders. MMODL / IJN: [id number] /
[2024-12-16 07:02] LABS: Glucose,Whole Blood 116 mg/dL (70-110)
[2024-12-16] MEDS: methylPREDNISolone SOD SUCCI 40 MG/ML 1 ML VIAL IV SCH (07:56)
[2024-12-16] MEDS: IPRATROPIUM-ALBUTEROL 3 ML NEB INHALATION SCH (07:57)
[2024-12-16] MEDS: AZITHROMYCIN 500 MG in SODIUM CHLORIDE 0.9% 250 ML IVPB SCH (08:29)
[2024-12-16] MEDS ORDERED: ASPIRIN 81 MG PO SCH (09:00)
[2024-12-16] MEDS ORDERED: cefTRIAXone 1,000 MG VIAL (IM USE) IM SCH (09:00)
[2024-12-16] MEDS ORDERED: ATORVASTATIN 40 MG TAB PO SCH (09:00)
[2024-12-16] MEDS ORDERED: amLODIPine 10 MG TAB PO SCH (09:00)
[2024-12-16] MEDS ORDERED: VALSARTAN 160 MG TAB PO SCH (09:00)
[2024-12-16 12:13] LABS: Glucose,Whole Blood 362 mg/dL (70-110)
--- NOTE | 2024-12-16 12:18 | P.PN ---
Subjective Patient is complaining of diarrhea today. She is seen for follow-up for end- stage renal disease. Shortness of breath slightly improved. Scheduled for hemodialysis today. 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 grossly intact - Labs CBC & Chem 7: 12/15/24 02:11 12/15/24 02:11 Labs: Abnormal Lab Results - Last 24 Hours (Table) 12/15/24 12/15/24 12/16/24 Range/Units 16:57 20:17 00:20 POC Glucose (mg/dL) 217 H 187 H (70-110) mg/dL Urine Appearance Turbid H (Clear) Urine Protein 1+ H (Negative) Urine Blood Small H (Negative) Ur Leukocyte Esterase Large H (Negative) Urine RBC 12 H (0-5) /hpf Urine WBC >182 H (0-5) /hpf Urine WBC Clumps Many H (None) /hpf Urine Bacteria Many H (None) /hpf 12/16/24 12/16/24 Range/Units 07:01 12:11 POC Glucose (mg/dL) 116 H 362 H (70-110) mg/dL Urine Appearance (Clear) Urine Protein (Negative) Urine Blood (Negative) Ur Leukocyte Esterase (Negative) Urine RBC (0-5) /hpf Urine WBC (0-5) /hpf Urine WBC Clumps (None) /hpf Urine Bacteria (None) /hpf Assessment and Plan Assessment: 1. End-stage renal disease on hemodialysis on Monday schedule via left arm AV fistula 2. Volume overload 3. Hypertension with end-stage renal disease 4. Dyspnea most likely related to volume overload 5. History of moderate pulmonary hypertension Plan: Hemodialysis today with UF of 2 to 3 L as tolerated Discussed with patient regarding adjusting dry weight as outpatient as she has recently lost weight. Repeat chest x-ray after hemodialysis Continue current antihypertensive regimen.
[2024-12-16] MEDS: ONDANSETRON 4 MG/2 ML VIAL IVP PRN (12:41)
[2024-12-16] MEDS: LIDOCAINE-PRILOCAINE 2.5-2.5% CREAM 5 GM TUBE TOPICAL STA (15:32)
[2024-12-16 17:03] LABS: Glucose,Whole Blood 186 mg/dL (70-110)
--- NOTE | 2024-12-16 19:15 | XR ---
EXAMINATION TYPE: XR chest 1V DATE OF EXAM: 12/16/2024 6:56 PM COMPARISON: Chest radiographs from 12/08/2024, CT chest 12/15/2024 TECHNIQUE: XR chest 1V Portable AP radiograph of the chest. CLINICAL INDICATION:Female, 79 years old with history of chf; FINDINGS: Lungs/Pleura: There is no evidence of pleural effusion, focal consolidation, or pneumothorax. Elevat ion of the right hemidiaphragm. Pulmonary vascularity: Unremarkable. Heart/mediastinum: Cardiomediastinal silhouette is prominent in size. Atherosclerotic calcifications are seen in the aorta. Musculoskeletal: No acute osseous pathology. Midline sternotomy wires are noted and stable. IMPRESSION: Chronic changes without evidence for acute process. [facility], , 12/16/2024 7:13 PM
[2024-12-16 19:59] LABS: Glucose,Whole Blood 301 mg/dL (70-110)
[2024-12-16] MEDS: INSULIN LISPRO (HumaLOG) 100 UNIT/ML 10 mL VL SQ SCH (21:52)
--- NOTE | 2024-12-16 23:23 | P.PN ---
Subjective Progress Note Date: 12/16/24 This is a pleasant 79-year-old female patient with past medical history of CAD status post CABG 14 years ago, end-stage renal disease on hemodialysis Monday, hypertension, hyperlipidemia. Presented to the hospital with complaints of shortness of breath. The patient was recently discharged on 12/10/2024 at which time she was admitted with shortness of breath. At that time she underwent echocardiogram that showed normal LV systolic function with mild to moderate MR, moderate pulmonary hypertension and moderate tricuspid regurgitation. NT proBNP that time was 45,900. She was discharged home for dialysis on Monday and started to become progressively more short of breath throughout the day yesterday. The patient does admit she has lost weight recently. She has been compliant with dialysis. Blood pressure at home typically runs 160s to 170s systolic after taking medications. She is compliant with a low-sodium diet. Diagnostics -EKG: Sinus mechanism -Chest x-ray: Mildly prominent lung markings may be secondary to technique versus pulmonary vascular congestion -Chest CT without contrast: No pleural effusion, tree-in-bud nodular opacities within the superior segment of the left lower lobe suggesting an infectious/inflammatory bronchiolitis, borderline enlarged probably reactive low paratracheal lymph node, cholelithiasis, small hiatal hernia, and findings of chronic medical renal disease -Laboratory studies: White blood cell count 8.59, hemoglobin 10.7, sodium 137, potassium 4.6, BUN 35, creatinine 7.23, troponin 0.015, NT proBNP 26,100 -Home cardiac medications: Hydralazine 50 mg p.o. twice daily, carvedilol 6.25 mg p.o. twice daily, amlodipine 10 mg p.o. daily, valsartan 320 mg p.o. daily, Lipitor 40 mg p.o. daily, and aspirin 81 mg p.o. daily -Prior stress test: N/A -Echocardiogram: Normal LV systolic function with mild to moderate MR moderate pulmonary hypertension and moderate TR -Cardiac catheterization: N/A Progress note 12/16/2024 Patient seen and examined bedside this a.m. reports that shortness of breath is much better. Continue hydralazine which was increased yesterday to 75 mg 3 times daily Hemodialysis as per nephrology team recommendation PHYSICAL EXAMINATION: This is a 79-year-old female in no apparent distress at the time of my exa mination. VITAL SIGNS: Reviewed. HEENT: Head is atraumatic, normocephalic. Pupils are equal, round. Sclerae anicteric. Conjunctivae are clear. Mucous membranes of the mouth are moist. Neck is supple. There is no elevated jugular venous pressure. No carotid bruit is heard. CHEST EXAMINATION: Lungs reveal faint bibasilar crackles. No wheezes or rhonchi. Respirations even and nonlabored. HEART EXAMINATION: Heart regular, positive S1 and S2. No S3. No S4. Systolic murmur. ABDOMEN: Soft, nontender. Bowel sounds are heard. No organomegaly noted. EXTREMITIES: 2+ peripheral pulses with no evidence of peripheral edema and no calf tenderness noted. Left arm AV fistula NEUROLOGIC EXAMINATION: Patient is awake, alert and oriented x3. Assessment: 1. Shortness of breath 2. CAD status post CABG 3. End-stage renal disease on hemodialysis 4. Hypertension Plan: Nephrology was in to see the patient with plans for back to back dialysis Monday and Monday. Patient likely being in adequately dialyzed due to failure to update patient's dry weight. We will increase hydralazine to 75 mg p.o. 3 times daily. We will continue to follow the patient and provide further recommendations accordingly. Thank you kindly for this consultation. Objective - Vital Signs Vital signs: Vital Signs Temp 98.3 F 12/16/24 19:16 Pulse 74 12/16/24 21:08 Resp 18 12/16/24 21:08 BP 143/61 12/16/24 21:52 Pulse Ox 99 12/16/24 19:16 FiO2 Intake & Output 12/16/24 12/16/24 12/17/24 06:59 18:59 06:59 Intake Total 200 400 Output Total 6400 Balance 200 -6000 Intake: Oral 200 Hemodialysis 400 Output: Hemodialysis 3400 Hemodialysis Net Amount 3000 Other: Voiding Method Toilet # Voids 1 - Labs CBC & Chem 7: 12/15/24 02:11 12/15/24 02:11 Labs: Abnormal Lab Results - Last 24 Hours (Table) 12/16/24 12/16/24 12/16/24 Range/Units 00:20 07:01 12:11 POC Glucose (mg/dL) 116 H 362 H (70-110) mg/dL Urine Appearance Turbid H (Clear) Urine Protein 1+ H (Negative) Urine Blood Small H (Negative) Ur Leukocyte Esterase Large H (Negative) Urine RBC 12 H (0-5) /hpf Urine WBC >182 H (0-5) /hpf Urine WBC Clumps Many H (None) /hpf Urine Bacteria Many H (None) /hpf 12/16/24 12/16/24 Range/Units 17:02 19:54 POC Glucose (mg/dL) 186 H 301 H (70-110) mg/dL Urine Appearance (Clear) Urine Protein (Negative) Urine Blood (Negative) Ur Leukocyte Esterase (Negative) Urine RBC (0-5) /hpf Urine WBC (0-5) /hpf Urine WBC Clumps (None) /hpf Urine Bacteria (None) /hpf
--- NOTE | 2024-12-17 00:33 | PN ---
PROGRESS NOTE SUBJECTIVE: Pulmonary edema, end-stage renal disease, came with shortness of breath, fluid overload, weight gain. She was started on oral Lasix that she has been taking, and ambulation. She is on broad-spectrum antibiotics for possible sepsis, aspiration pneumonia. 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 OBJECTIVE: VITAL SIGNS: Stable. Afebrile. CARDIOVASCULAR: S1. HEMATOLOGY: Negative Homans. PSYCH: Fair mood and affect. LUNGS: Scattered rhonchi and wheeze. Congested. NEUROLOGIC: Cranial nerves intact. Chronic changes without acute process Chest x-ray shows . Prognosis is guarded. Ambulate as tolerated. Historiography Professor and neurologist clear for discharge. MMODL / IJN: [id number] /
[2024-12-17 07:08] LABS: Glucose,Whole Blood 244 mg/dL (70-110)
[2024-12-17] MEDS ORDERED: INSULIN LISPRO (HumaLOG) 100 UNIT/ML 10 mL VL SQ SCH (07:30)
--- NOTE | 2024-12-17 11:20 | P.PN ---
Subjective Patient is complaining of diarrhea today. She is seen for follow-up for end- stage renal disease. Shortness of breath improved. Status post UF of 3 L yesterday with hemodialysis. No plans for dialysis today as volume status appears much improved. Patient wants to go home Objective - Vital Signs Vital signs: Vital Signs Temp 98.4 F 12/17/24 08:55 Pulse 75 12/17/24 10:52 Resp 18 12/17/24 10:52 BP 175/76 12/17/24 08:55 Pulse Ox 98 12/17/24 08:55 FiO2 Intake & Output 12/16/24 12/17/24 12/17/24 18:59 06:59 18:59 Intake Total 200 400 240 Output Total 6400 Balance 200 -6000 240 Intake: Oral 200 240 Hemodialysis 400 Output: Hemodialysis 3400 Hemodialysis Net Amount 3000 Other: Voiding Method Toilet # Voids 1 - Exam Patient is awake and alert oriented x 3 Examination of the heart S1 and S2 Examination of the lungs bilateral breath sounds are heard with basal crackles Abdomen is soft nontender Examination lower extremity shows no edema 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 End-stage renal disease on hemodialysis on Monday schedule via left arm AV fistula 2. Volume overload 3. Hypertension with end-stage renal disease 4. Dyspnea most likely related to volume overload, improved 5. History of moderate pulmonary hypertension Plan: No need for hemodialysis today. Patient will be dialyzed tomorrow as per her regular schedule. She could be discharged from nephrology standpoint.
[2024-12-17 12:23] LABS: Glucose,Whole Blood 322 mg/dL (70-110)
--- NOTE | 2024-12-17 13:35 | P.PN ---
Subjective Progress Note Date: 12/17/24 This is a pleasant 79-year-old female patient with past medical history of CAD status post CABG 14 years ago, end-stage renal disease on hemodialysis Monday, hypertension, hyperlipidemia. Presented to the hospital with complaints of shortness of breath. The patient was recently discharged on 12/10/2024 at which time she was admitted with shortness of breath. At that time she underwent echocardiogram that showed normal LV systolic function with mild to moderate MR, moderate pulmonary hypertension and moderate tricuspid regurgitation. NT proBNP that time was 45,900. She was discharged home for dialysis on Monday and started to become progressively more short of breath throughout the day yesterday. The patient does admit she has lost weight recently. She has been compliant with dialysis. Blood pressure at home typically runs 160s to 170s systolic after taking medications. She is compliant with a low-sodium diet. Diagnostics -EKG: Sinus mechanism -Chest x-ray: Mildly prominent lung markings may be secondary to technique versus pulmonary vascular congestion -Chest CT without contrast: No pleural effusion, tree-in-bud nodular opacities within the superior segment of the left lower lobe suggesting an infectious/inflammatory bronchiolitis, borderline enlarged probably reactive low paratracheal lymph node, cholelithiasis, small hiatal hernia, and findings of chronic medical renal disease -Laboratory studies: White blood cell count 8.59, hemoglobin 10.7, sodium 137, potassium 4.6, BUN 35, creatinine 7.23, troponin 0.015, NT proBNP 26,100 -Home cardiac medications: Hydralazine 50 mg p.o. twice daily, carvedilol 6.25 mg p.o. twice daily, amlodipine 10 mg p.o. daily, valsartan 320 mg p.o. daily, Lipitor 40 mg p.o. daily, and aspirin 81 mg p.o. daily -Prior stress test: N/A -Echocardiogram: Normal LV systolic function with mild to moderate MR moderate pulmonary hypertension and moderate TR -Cardiac catheterization: N/A Progress note 12/16/2024 Patient seen and examined bedside this a.m. reports that shortness of breath is much better. Continue hydralazine which was increased yesterday to 75 mg 3 times daily Hemodialysis as per nephrology team recommendation 12/17/2024 Patient seen and examined. Blood pressure readings are improved today. Blood pressure 133/67, heart rate is in the 70s, pulse ox 99% on room air. Echocardiogram reveals EF 60 to 65%, mild to moderate MR, aortic sclerosis with no stenosis or insufficiency. Moderate pulmonary hypertension. Moderate TR. PHYSICAL EXAMINATION: This is a 79-year-old female in no apparent distress at the time of my examination. VITAL SIGNS: Reviewed. HEENT: Head is atraumatic, normocephalic. Pupils are equal, round. Sclerae anicteric. Conjunctivae are clear. Mucous membranes of the mouth are moist. Neck is supple. There is no elevated jugular venous pressure. No carotid bruit is heard. CHEST EXAMINATION: Lungs reveal faint bibasilar crackles. No wheezes or rhonchi. Respirations even and nonlabored. HEART EXAMINATION: Heart regular, positive S1 and S2. No S3. No S4. Systolic murmur. ABDOMEN: Soft, nontender. Bowel sounds are heard. No organomegaly noted. EXTREMITIES: 2+ peripheral pulses with no evidence of peripheral edema and no calf tenderness noted. Left arm AV fistula NEUROLOGIC EXAMINATION: Patient is awake, alert and oriented x3. Assessment: 1. Shortness of breath 2. CAD status post CABG 3. End-stage renal disease on hemodialysis 4. Hypertension Plan: Nephrology was in to see the patient with plans for back to back dialysis Monday and Monday. Patient is currently on amlodipine 10 mg daily, aspirin 81 mg daily, Coreg 6.25 mg twice daily, hydralazine 75 mg, valsartan 320 mg daily. Cardiology will sign off this case and follow on an as-needed basis. Please reconsult for any new concerns. Patient may follow-up in the office in one to 2 weeks. Nurse practitioner note has been reviewed, I agree with documented findings and plan of care. Patient was seen and examined. Objective - Vital Signs Vital signs: Vital Signs Temp 98.4 F 12/17/24 08:55 Pulse 75 12/17/24 08:55 Resp 18 12/17/24 08:55 BP 175/76 12/17/24 08:55 Pulse Ox 98 12/17/24 08:55 FiO2 Intake & Output 12/16/24 12/17/24 12/17/24 18:59 06:59 18:59 Intake Total 200 400 240 Output Total 6400 Balance 200 -6000 240 Intake: Oral 200 240 Hemodialysis 400 Output: Hemodialysis 3400 Hemodialysis Net Amount 3000 Other: Voiding Method Toilet # Voids 1 - Labs CBC & Chem 7: 12/15/24 02:11 12/15/24 02:11 Labs: Abnormal Lab Results - Last 24 Hours (Table) 12/16/24 12/16/24 12/16/24 Range/Units 12:11 17:02 19:54 POC Glucose (mg/dL) 362 H 186 H 301 H (70-110) mg/dL 12/17/24 Range/Units 07:06 POC Glucose (mg/dL) 244 H (70-110) mg/dL
--- NOTE | 2024-12-17 16:07 | CDI ---
Documentation Clarification Form Date: 12/17/2024 03:30:04 PM From: Ana Lilly RN, CCDS Phone: [phone] Admit Date: 12/15/2024 03:31:00 AM Patient Name: Delia Lobo Visit Number: [id number] Discharge Date: ATTENTION: The Clinical Documentation Specialists (CDI) and [facility] Coding Staff appreciate your assistance in clarifying documentation. Please respond to the clarification below the line at the bottom and electronically sign. The CDI & [facility] Coding staff will review the response and follow-up if needed. Please note: Queries are made part of the Legal Health Record. If you have any questions, please contact the author of this message via ITS. Doctor. Semaj Kaba Sepsis is documented in the progress note on 12/17/24 which may lack sufficient clinical evidence/support in the medical record. Additional clarification is requested. History/Risk Factors: Coronary Artery Disease (CAD), Diabetes Mellitus, Hypertension, Renal Disease, (ESRD on Dialysis) Clinical Indicators: 79-year-old female present to ED with shortness of breath. She denies fevers or chills, no chest pain no headache or vomiting. 12/15 VS: (00:02) 202/90 64 15 97.6 98% RA, (07:49) 212/66 61 16 97.5 98% RA 12/15 Labs: WBC 8.59, HGB 10.7, CL 97, BUN 35, Cr 7.23, BNP 00599 12/15 CXR: Mildly prominent lung markings may be secondary to technique versus pulmonary vasculature congestion. 12/[address]: tree-in-bud nodular opacities within the superior segment of the left lower lobe suggesting an infectious/inflammatory bronchiolitis. 12/16 CXR: Chronic changes without evidence for acute process. Treatment: Undercutter Operator / Telemetry Solu-Medrol 40 MG IV Q 8 HR 12/16-12/17 Rocephin 1 GM IVPB Q 24 HRS 12/16 -12/17 Azithromycin 500 mg IVPB DAILY 12/16-12/17 After work up and study, please clarify which diagnosis is most appropriate? [ ] Sepsis is ruled out. The patient had a localized infection without systemic response. [ ] Sepsis was initially suspected, but subsequent clinical findings did not support the diagnosis, and it has been ruled out. [ ] Sepsis, present on admission is clinically supported as evidenced by these additional clinical indicators: [ ] Other, please specify [ ] Unable to determine (Template Last Reviewed: May 2023) MTDD
--- NOTE | 2024-12-17 16:25 | CDI ---
Documentation Clarification Form Date: 12/17/2024 04:08:09 PM From: Ana Lilly RN, CCDS Phone: [phone] Admit Date: 12/15/2024 03:31:00 AM Patient Name: Delia Lobo Visit Number: [id number] Discharge Date: ATTENTION: The Clinical Documentation Specialists (CDI) and [facility] Coding Staff appreciate your assistance in clarifying documentation. Please respond to the clarification below the line at the bottom and electronically sign. The CDI & [facility] Coding staff will review the response and follow-up if needed. Please note: Queries are made part of the Legal Health Record. If you have any questions, please contact the author of this message via ITS. Doctor. Semaj Kaba Aspiration pneumonia is documented in the progress note on 12/17/24 which may lack sufficient clinical evidence/support in the medical record. Additional clarification is requested. History/Risk Factors: Coronary Artery Disease (CAD), Diabetes Mellitus, Hypertension, Renal Disease, (ESRD on Dialysis) Clinical Indicators: 79-year-old female present to ED with shortness of breath. She denies fevers or chills, no chest pain no headache or vomiting. 12/15 pulmonary exam: Present: rales. Absent: normal lung sounds bilaterally, respiratory distress, wheezes, rhonchi, and stridor 12/15 VS: (00:02) 202/90 64 15 97.6 98% RA, (07:49) 212/66 61 16 97.5 98% RA 12/15 Labs: WBC 8.59, HGB 10.7, CL 97, BUN 35, Cr 7.23, BNP 33829 12/15 CXR: Mildly prominent lung markings may be secondary to technique versus pulmonary vasculature congestion. 12/[address]: tree-in-bud nodular opacities within the superior segment of the left lower lobe suggesting an infectious/inflammatory bronchiolitis. 12/16 CXR: Chronic changes without evidence for acute process. 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 [ ] No, Aspiration pneumonia is ruled out [ ] Yes, Aspiration pneumonia is present on admission as evidence by (additional clinical support): [ ] Other (please specify diagnosis) [ ] Unable to determine (Template Last Revised: October 2023) MTDD
[2024-12-17 16:49] LABS: Glucose,Whole Blood 303 mg/dL (70-110)
[2024-12-17 20:09] LABS: Glucose,Whole Blood 437 mg/dL (70-110)
[2024-12-17 21:38] LABS: Glucose,Whole Blood 397 mg/dL (70-110)
[2024-12-17] MEDS: ALPRAZolam 0.5 MG TAB PO PRN (22:03)
[2024-12-17] MEDS: INSULIN LISPRO (HumaLOG) 100 UNIT/ML 10 mL VL SQ ONE (22:05)
[2024-12-18] MEDS: ACETAMINOPHEN TAB 325 MG TAB PO PRN (03:09)
[2024-12-18 07:07] LABS: Glucose,Whole Blood 256 mg/dL (70-110)
[2024-12-18] MEDS ORDERED: CEFDINIR 300 MG CAP PO SCH (09:00)
--- NOTE | 2024-12-18 12:20 | P.PN ---
Subjective Patient is complaining of diarrhea today. She is seen for follow-up for end- stage renal disease. Shortness of breath improved. Status post UF of 3 L with hemodialysis on 12/16/2024. Seen on hemodialysis today. Tolerating treatment well. 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 End-stage renal disease on hemodialysis on Monday schedule via left arm AV fistula 2. Volume overload, improved 3. Hypertension with end-stage renal disease 4. Dyspnea most likely related to volume overload, improved 5. History of moderate pulmonary hypertension Plan: Hemodialysis today with UF of about 3 L as tolerated Check weight post dialysis and dry weight will be adjusted as outpatient. Stable for discharge from nephrology standpoint post hemodialysis.
[2024-12-18 12:52] LABS: Glucose,Whole Blood 132 mg/dL (70-110)
--- NOTE | 2024-12-18 16:52 | PN ---
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 She is improving her cough and congestion currently. OBJECTIVE: CARDIOVASCULAR: S1-S2. LUNGS: Transmitted wheeze x4. HEMATOLOGY: 2+ edema. NEUROLOGIC: Alert and oriented x3. MEDICATIONS: Reviewed. IMAGING DATA: Echocardiogram reviewed. ASSESSMENT AND PLAN: Shortness of breath, coronary artery disease, end-stage renal disease, chronic obstructive pulmonary disease, chronic cough, fluid overload. Prognosis is guarded. The patient continues to improve, will possibly go home as she is improved from a medical standpoint. MMODL / IJN: [id number] /
[2024-12-18 19:01] VITALS: BP 124/64; PULSE 64; RESP 18; TEMP 36.5
--- NOTE | 2024-12-19 00:23 | PN ---
PROGRESS NOTE SUBJECTIVE: Sepsis secondary to pneumonia, present on admission. Also aspiration pneumonia, present on admission. MMODL / IJN: [id number] /
== END 2024-12-18 16:48 | disposition home or self-care (01) | DRG 871 ==
LOC: EC 23:59 → 5NMEDONC 12-15 03:31
PROVIDERS: ADMIT Family Medicine; ATTEND Family Medicine
PROC: 5A1D70Z Performance of Urinary Filtration, Intermittent, Less than 6 Hours Per Day (ICD-10-PCS; principal; 2024-12-16)
DX: A41.9 Sepsis, unspecified organism (principal); I50.33 Acute on chronic diastolic (congestive) heart failure; N18.6 End stage renal disease; J69.0 Pneumonitis due to inhalation of food and vomit; I12.0 Hypertensive chronic kidney disease with stage 5 chronic kidney disease or end stage renal disease; J81.1 Chronic pulmonary edema; I27.20 Pulmonary hypertension, unspecified; Z99.2 Dependence on renal dialysis; J44.0 Chronic obstructive pulmonary disease with (acute) lower respiratory infection; E11.22 Type 2 diabetes mellitus with diabetic chronic kidney disease; Z79.4 Long term (current) use of insulin; M19.90 Unspecified osteoarthritis, unspecified site; R19.7 Diarrhea, unspecified; I25.10 Atherosclerotic heart disease of native coronary artery without angina pectoris; E78.5 Hyperlipidemia, unspecified; E87.70 Fluid overload, unspecified; Z79.82 Long term (current) use of aspirin; Z79.899 Other long term (current) drug therapy; Z90.710 Acquired absence of both cervix and uterus; Z95.1 Presence of aortocoronary bypass graft; Z88.1 Allergy status to other antibiotic agents; Z88.0 Allergy status to penicillin; Z88.8 Allergy status to other drugs, medicaments and biological substances; M10.9 Gout, unspecified
CPT/HCPCS: 36415; 71045; 71046; 71250; 80053; 81001; 83735; 83880; 84100; 84484; 85025; 85610; 85730; 87086; 90935; 93005; 94640; 99285